=== PATIENT | male | born 1930 | race Caucasian/White ===

== ENCOUNTER 2017-06-14 12:50 | Emergency (ER) | payer MEDICARE, OTHER ==
--- NOTE | 2017-06-15 01:02 | ER ---
Date of Service: 06/14/2017 SUBJECTIVE: Andi presents to the emergency room with complaints of headache. The patient is a resident at [facility] and the patient states that the headache started approximately half hour before coming to the ER. The patient did take some Tylenol and by the time he had arrived to the emergency room, his pain had decreased significantly. The patient does have a history of subdural hematoma secondary to a fall. He states that he has not fallen or struck his head today. On arrival to the patient's room, the patient stated that he did not wish to be evaluated and wanted to go home stating that he had already called for the senior bus to come and get him. PAST MEDICAL HISTORY: 1. Subdural hematoma. 2. CHF. 3. COPD. 4. Parkinson disease. 5. Hypertension. 6. Anxiety. 7. Chronic kidney disease. ALLERGIES: 1. Hydrocodone. 2. Levodopa. 3. Selegiline. 4. YOSEF inhibitors. 5. Carbidopa. 6. Oxycodone. 7. Mirapex. MEDICATIONS: 1. Keppra. 2. Flomax. 3. Zocor. 4. Senna/docusate. 5. Omeprazole. 6. Synthroid. 7. Imdur. 8. Gabapentin. 9. Flonase. 10.Proscar. 11.Iron supplement. 12.Colace. 13.Lotrimin AF. 14.Dulcolax. 15.Diprolene. 16.Tylenol. REVIEW OF SYSTEMS: Denies any fever or chills. HEENT: No sore throat, rhinorrhea, congestion. Again, he does complain of resolving headache. Respiratory: No shortness of breath. Cardiac: Denies any substernal chest pain. No jaw, arm, neck, or back pain. GI: No nausea, vomiting, or diarrhea. No melena, hematochezia, or hematemesis. : Denies any dysuria. Musculoskeletal: No myalgias or arthralgias. Neurologic: No fainting, blackouts, or lightheadedness. Denies any numbness or tingling in his extremities. No difficulties with speech or ambulation. He is not experiencing any more weakness than he normally does. PHYSICAL EXAMINATION: General: This is an 86-year-old male patient, in no acute distress. Vital Signs: Blood pressure is 143/63, heart rate is 69, temperature is 36.1, respiratory rate 16. Skin: Warm, pink, and dry. Eyes: PERRLA. Extraocular movements are intact. Mouth, oral mucosa is moist. Lungs: Clear to auscultation. Heart: Regular rate and rhythm. Abdomen: Soft and nontender. There is no hepatosplenomegaly or masses noted. Extremities: Without edema. Neurologic: Cranial nerves II through XII are intact. His speech is fluent. He has 4/5 strength in his upper extremities and 3/5 strength in his lower extremities. Again, he does walk with a walker, so this is normal for him due to his Parkinson disease. Remainder of his physical examination is unremarkable. ASSESSMENT: Resolving headache. PLAN: The patient was discharged. He was reassured and I did advise him to return to the emergency room if the headache redevelops. If he develops any difficulties with speech or worsening difficulties with ambulation, nausea, vomiting, confusion, or other worrisome signs or symptoms. All questions were answered. ALEXISK: 06/15/2017 00:02:37 MODL: 06/15/2017 00:44:10 /[id number]
== END 2017-06-14 13:40 | disposition home or self-care (01) ==
LOC: VM.ED 12:50
CPT/HCPCS: 99282-GF; 99283

== ENCOUNTER 2018-05-04 02:40 | Observation (INO) | payer MEDICARE, OTHER ==
[2018-05-04] MEDS ORDERED: Acetaminophen 500 MG Tab PO ONE (03:48)
[2018-05-04 04:04] LABS: CHLORIDE,CL 107 mmol/L (98-107); SODIUM,NA 142 mmol/L (136-145)
--- NOTE | 2018-05-04 04:59 | EDM.PDOC ---
ED HPI GENERAL MEDICAL PROBLEM - General Chief Complaint: General Stated Complaint: Fall Time Seen by Provider: 05/04/18 03:02 Source of Information: Reports: Patient, Family History Limitations: Reports: No Limitations - History of Present Illness INITIAL COMMENTS - FREE TEXT/NARRATIVE: Patient is brought in by his daughter after he fell using the urinal by his bed this AM. 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 Daughter states his balance and strength are similar tonight to his baseline. He did strike his head and has large skin tears to the right forearm. He denies LOC, headache. He does indicate right sided chest pain. He did have rib fractures from 1-2 months ago as a result of a different falling episode. He has no urinary or bowel complaints. Denies abdominal pain. Onset: Today, Sudden Duration: Intermittent Location: Reports: Head, Chest Severity: Mild - Related Data Allergies Allergy/AdvReac Type Severity Reaction Status Date / Time hydrocodone Allergy Nausea and Verified 05/04/18 03:18 Vomiting levodopa [From Sinemet] Allergy Hallucinati Verified 05/04/18 03:18 ons selegiline [From Eldepryl] Allergy Cannot Verified 05/04/18 03:18 Remember YOSEF Inhibitors AdvReac Cough Verified 05/04/18 03:18 carbidopa [From Sinemet] AdvReac Hallucinati Verified 05/04/18 03:18 ons oxycodone AdvReac Nausea and Verified 05/04/18 03:18 Vomiting pramipexole di-HCl AdvReac Hallucinati Verified 05/04/18 03:18 [From Mirapex] ons Home Meds: Home Meds Acetaminophen [Tylenol Extra Strength] 1,000 mg PO TID 04/26/15 [History] Betamethasone/Propylene Glyc [Diprolene AF 0.05%] 1 applic TOP DAILY PRN [History] Ferrous Sulfate [Iron Supplement] 325 mg PO DAILY 04/26/15 [History] Finasteride [Proscar] 5 mg PO DAILY 04/26/15 [History] Fluorouracil [Efudex 5% Cream] 1 applic TOP ASDIRECTED PRN 04/26/15 [History] Gabapentin [Neurontin] 300 mg PO DAILY 04/26/15 [History] Isosorbide Mononitrate [Imdur] 60 mg PO DAILY 04/26/15 [History] Levothyroxine Sodium [Synthroid] 56 mcg PO DAILY 04/26/15 [History] Sennosides/Docusate Sodium [Senna-S Tablet] 1 each PO BID 04/26/15 [History] Simvastatin [Zocor] 10 mg PO DAILY 04/26/15 [History] Triamcinolone Acetonide [Triamcinolone Acetonide 0.1% Crm] 15 gm TOP BID PRN 07/03 [History] Bisacodyl [Dulcolax] 10 mg RECTAL DAILY PRN 08/25/15 [History] Clotrimazole [Lotrimin AF 1% Crm] 1 applic TOP BID PRN 08/25/15 [History] Docusate Sodium [Colace] 100 mg PO BID 08/25/15 [History] Fluticasone Propionate [Flonase] 1 spray NASBOTH DAILY 08/25/15 [History] Omeprazole 20 mg PO BIDAC 08/25/15 [History] Sodium Chloride [Saline Nasal [place]] 2 spray NASBOTH Q2H PRN 08/25/15 [History] Tamsulosin [Flomax] 0.4 mg PO BEDTIME 08/25/15 [History] levETIRAcetam [Levetiracetam] 750 mg PO BID 08/25/15 [History] Past Medical History Cardiovascular History: Reports: Pacemaker Neurological History: Reports: Brain Injury, Other (See Below) Other Neuro History: blood clot removed from head s/p fall Other Dermatologic History: 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 ED ROS GENERAL - Review of Systems Review Of Systems: See Below Constitutional: Reports: No Symptoms HEENT: Reports: No Symptoms Respiratory: Reports: No Symptoms Cardiovascular: Reports: Chest Pain Endocrine: Reports: No Symptoms GI/Abdominal: Reports: No Symptoms : Reports: No Symptoms Musculoskeletal: Reports: Other (chest pain right side) Skin: Reports: Wound (right forearm, posterior occiput) Neurological: Reports: Pre-Existing Deficit, Trouble Speaking Psychiatric: Reports: No Symptoms Hematologic/Lymphatic: Reports: No Symptoms Immunologic: Reports: No Symptoms ED EXAM, GENERAL - Physical Exam Exam: See Below Free Text/Narrative:: PLEASE USE ER NOTE FOR ADMISSION H AND P Exam Limited By: No Limitations General Appearance: Alert, WD/WN, No Apparent Distress Eye Exam: Bilateral Eye: EOMI, PERRL Ears: Normal TMs, Hearing Loss Ear Exam: Bilateral Ear: TM normal Throat/Mouth: Normal Inspection, Normal Lips, Normal Teeth, Normal Gums, Normal Oropharynx, Normal Voice, No Airway Compromise Head: Normocephalic, Other Neck: Normal Inspection Respiratory/Chest: No Respiratory Distress, Lungs Clear, Normal Breath Sounds, No Accessory Muscle Use, Chest Non-Tender Cardiovascular: Normal Peripheral Pulses, Regular Rate, Rhythm, No Edema, No Gallop, No JVD, No Murmur, No Rub Peripheral Pulses: 2+: Posterior Tibial (L), Posterior Tibial (R), Dorsalis Pedis (L), Dorsalis Pedis (R) GI/Abdominal: Normal Bowel Sounds, Soft, Non-Tender, No Organomegaly, No Distention, No Abnormal Bruit, No Mass Extremities: Normal Inspection, Normal Range of Motion, Non-Tender, Normal Capillary Refill, No Pedal Edema Neurological: Alert, Oriented, CN II-XII Intact, Normal Cognition, Normal Gait, Normal Reflexes, No Motor/Sensory Deficits, Slow to Respond, Memory Loss Recent Events Psychiatric: Normal Affect, Normal Mood Skin Exam: Warm, Dry, Intact, Normal Color, No Rash Lymphatic: No Adenopathy Course - Radiology Interpretation Free Text/Narrative:: negative chest, negative head ct Departure - Departure Time of Disposition: 06:00 Disposition: Refer to Observation Condition: Fair Clinical Impression: Skin tear of forearm without complication, Laceration of head, Chest pain - Discharge Information Instructions: Laceration Care, Adult, Stitches, [place], or Adhesive Wound Closure, [id number] Referrals: Samantha Bolden MD [Primary Care Provider] - Additional Instructions: Follow up with your primary doctor next week for additional symptom management. Keep dressing on arm for at least the next 48 hours and keep clean and dry. May apply bacitracin ointment as needed. Certainly return to the emergency room if you have any additional problems over the weekend. If you notice any abnormal neurologic symptoms call or return to the ER. Please call if you have any questions or concerns. - Problem List & Annotations (1) Laceration of head SNOMED Code(s): 916618639 Code(s): S01.91XA - LACERATION W/O FOREIGN BODY OF UNSP PART OF HEAD, INIT Status: Acute Priority: Medium Current Visit: Yes Qualifiers: Encounter type: initial encounter Location of open wound of head: unspecified part of head Foreign body presence: without foreign body Qualified Code(s): S01.91XA - Laceration without foreign body of unspecified part of head, initial encounter (2) Skin tear of forearm without complication SNOMED Code(s): 159513688 Code(s): S51.819A - LACERATION WITHOUT FOREIGN BODY OF UNSP FOREARM, INIT ENCNTR Status: Acute Priority: Low Current Visit: Yes Qualifiers: Encounter type: initial encounter Laterality: right Qualified Code(s): S51.811A - Laceration without foreign body of right forearm, initial encounter - Problem List Review Problem List Initiated/Reviewed/Updated: Yes - Assessment/Plan Assessment:: occipital head lac right forearm skin tears Plan: Follow up with your primary doctor next week for additional symptom management. Keep dressing on arm for at least the next 48 hours and keep clean and dry. May apply bacitracin ointment as needed. Certainly return to the emergency room if you have any additional problems over the weekend. If you notice any abnormal neurologic symptoms call or return to the ER. Please call if you have any questions or concerns. PLAN Admit to observation Chest Pain - IV pain medications as needed for pain control, use incentive spirometry, ambulation as tolerated Skin tear - apply bacitracin as needed, cover with dressing Head laceration - maura placed, continue observation for any neurologic changes Discharge Sunday
[2018-05-04] MEDS ORDERED: Ketorolac 30 MG/ML SDV IM ONE (05:00)
[2018-05-04] MEDS ORDERED: Sodium Chloride 0.9% 10 ML Syringe FLUSH PRN (05:26)
[2018-05-04] MEDS ORDERED: Ondansetron 4 MG Tab.DIS PO PRN (05:59)
[2018-05-04] MEDS ORDERED: Acetaminophen 325 MG Tab PO PRN (05:59)
[2018-05-04] MEDS ORDERED: Gabapentin 300 MG Cap PO SCH (10:07)
[2018-05-04] MEDS ORDERED: Ibuprofen 200 MG Tab PO PRN (11:00)
[2018-05-04] MEDS: Isosorbide Mononitrate 30 MG Tab.ER PO SCH (11:05)
[2018-05-04] MEDS: Levothyroxine 112 MCG Tab PO SCH (11:05)
[2018-05-04] MEDS: Finasteride 5 MG Tab**OWN MED PO SCH (11:06)
[2018-05-04] MEDS: levETIRAcetam 500 MG Tab**OWN MED PO SCH ×2 (11:06→20:19)
[2018-05-04] MEDS: ESCITALOPRAM 20 MG PO SCH (16:54)
[2018-05-04] MEDS: Acetaminophen 500 MG Tab PO PRN (18:00)
[2018-05-04] MEDS: Omeprazole 20 MG Cap.CR PO SCH (18:01)
[2018-05-04] MEDS ORDERED: DOXAZOSIN 2 MG PO SCH (20:00)
[2018-05-04] MEDS ORDERED: Simvastatin 20 MG Tab**OWN MED PO SCH (20:00)
[2018-05-05 05:45] VITALS: BP 163/83
[2018-05-05] MEDS: Levothyroxine 112 MCG Tab PO SCH (06:16)
[2018-05-05] MEDS: Omeprazole 20 MG Cap.CR PO SCH (06:16)
[2018-05-05] MEDS: Acetaminophen 500 MG Tab PO PRN (06:20)
[2018-05-05] MEDS: Isosorbide Mononitrate 30 MG Tab.ER PO SCH (07:51)
[2018-05-05] MEDS: Finasteride 5 MG Tab**OWN MED PO SCH (07:52)
[2018-05-05] MEDS: ESCITALOPRAM 20 MG PO SCH (07:52)
[2018-05-05] MEDS: levETIRAcetam 500 MG Tab**OWN MED PO SCH (07:53)
[2018-05-05] MEDS ORDERED: GABAPENTIN 600 MG PO SCH (08:00)
--- NOTE | 2018-05-07 14:56 | PCM.DCSUM1 ---
Discharge Summary - Hospital Course HPI Initial Comments: Pt. was admitted observation following a fall. Pt. sustained a laceration to the occipital portion of his head and a skin tear to his R forearm after the fall. He was complaining of a headache and subsequently was admitted by TALIA Cade. He had no change in his neuro status and was able to ambulate, but continued to be unsteady on his feet and at risk for falling. He requires the assist of one with ambulation with a seated walker. Pt. did not require further inpatient care, but will be set up with PT/OT from home health due to his risk of falling and home health to monitor and change the dressing on the skin tear on his forearm and to monitor the stapled laceration to the back of his head. He requires assistance for his ADLs. - Discharge Data Discharge Date: 05/05/18 Discharge Disposition: Home, W Home Health Agency 06 Condition: Fair - Discharge Diagnosis/Problem(s) (1) Skin tear of forearm without complication SNOMED Code(s): 501726700 ICD Code: S51.819A - LACERATION WITHOUT FOREIGN BODY OF UNSP FOREARM, INIT ENCNTR Status: Acute Priority: Low Qualifiers: Encounter type: initial encounter Laterality: right Qualified Code(s): S51.811A - Laceration without foreign body of right forearm, initial encounter - Patient Instructions Showering/Bathing: May Shower - Discharge Plan Home Medications: Home Meds Acetaminophen [Tylenol Extra Strength] 1,000 mg PO TID PRN 04/26/15 [History] Finasteride [Proscar] 5 mg PO DAILY 04/26/15 [History] Gabapentin [Neurontin] 300 mg PO DAILY 04/26/15 [History] Isosorbide Mononitrate [Imdur] 30 mg PO DAILY 04/26/15 [History] Levothyroxine Sodium [Synthroid] 112 mcg PO DAILY 04/26/15 [History] Sennosides/Docusate Sodium [Senna-S Tablet] 1 each PO BID 04/26/15 [History] Simvastatin [Zocor] 10 mg PO DAILY 04/26/15 [History] Fluticasone Propionate [Flonase] 1 spray NASBOTH BID 08/25/15 [History] Omeprazole 20 mg PO BIDAC 08/25/15 [History] levETIRAcetam [Levetiracetam] 250 mg PO BID 08/25/15 [History] Cholecalciferol (Vitamin D3) [Vitamin D3] 2,000 units PO DAILY 05/04/18 [History ] Doxazosin [Cardura] 1 mg PO BEDTIME 05/04/18 [History] Escitalopram [Lexapro] 10 mg PO DAILY 05/04/18 [History] Magnesium Hydroxide [Milk of Magnesia] 30 ml PO DAILY PRN 05/04/18 [History] Patient Handouts: Laceration Care, Adult, Heart Failure, [id number], Stitches , [place], or Adhesive Wound Closure, [id number] Forms: ED Department Discharge Referrals: Samantha Bolden MD [Primary Care Provider] - - General Info Date of Service: 05/05/18 Functional Status: Reports: Pain Controlled - Review of Systems General: Reports: Weakness, Fatigue HEENT: Reports: Other (occipital scalp laceration). Denies: Headaches ( Headache has resolved) Pulmonary: Reports: No Symptoms Cardiovascular: Reports: No Symptoms Gastrointestinal: Reports: No Symptoms Genitourinary: Reports: No Symptoms Musculoskeletal: Reports: No Symptoms Skin: Reports: No Symptoms Neurological: Reports: Difficulty Walking, Gait Disturbance (acture on chronic issues with ambulation). Denies: Confusion, Dizziness, Headache, Numbness, Paresthesia, Pre-Existing Deficit, Trouble Speaking Psychiatric: Reports: No Symptoms - Patient Data Vitals - Most Recent: Last Vital Signs Temp 36.5 C 05/05/18 05:44 Pulse 68 05/05/18 05:44 Resp 18 05/05/18 05:44 BP 163/83 H 05/05/18 05:44 Pulse Ox 93 L 05/05/18 05:44 Weight - Most Recent: 86.664 kg Med Orders - Current: Current Medications Discontinued Medications Acetaminophen (Tylenol Extra Strength) 1,000 mg PO ONETIME ONE Stop: 05/04/18 03:49 Last Admin: 05/04/18 05:13 Dose: 1,000 mg Acetaminophen (Tylenol) 650 mg PO Q4H PRN PRN Reason: Pain (Mild 1-3)/fever Acetaminophen (Tylenol Extra Strength) 1,000 mg PO TID PRN PRN Reason: Pain (mild 1-3) Last Admin: 05/05/18 06:20 Dose: 1,000 mg Finasteride (Proscar) 5 mg PO DAILY [facility] Last Admin: 05/05/18 07:52 Dose: 5 mg Gabapentin (Neurontin) 300 mg PO DAILY [facility] Last Admin: 05/04/18 11:06 Dose: 300 mg Ibuprofen (Motrin) 800 mg PO Q6H PRN PRN Reason: Pain (mild 1-3) Isosorbide Mononitrate (Imdur) 30 mg PO DAILY [facility] Last Admin: 05/05/18 07:51 Dose: 30 mg Ketorolac Tromethamine (Toradol) 30 mg IM ONETIME ONE Stop: 05/04/18 05:01 Last Admin: 05/04/18 05:12 Dose: 30 mg Levetiracetam (Keppra) 250 mg PO BID [facility] Last Admin: 05/05/18 07:53 Dose: 250 mg Levothyroxine Sodium (Levothyroxine) 112 mcg PO ACBREAKFAST [facility] Last Admin: 05/05/18 06:16 Dose: 112 mcg Doxazosin 2mg Own (Med) 0 each PO BEDTIME [facility] Last Admin: 05/04/18 20:20 Dose: 1 each Escitalopram [ Lexapro] 20 MgOwn Med 10 mg PO DAILY [facility] Last Admin: 05/05/18 07:52 Dose: 10 mg Gabapentin 600mg Tab (Own Med) 0.5 each PO DAILY [facility] Last Admin: 05/05/18 07:52 Dose: 0.5 each Omeprazole (Omeprazole) 20 mg PO BIDAC [facility] Last Admin: 05/05/18 06:16 Dose: 20 mg Ondansetron HCl (Zofran Odt) 4 mg PO Q6H PRN PRN Reason: nausea, able to take PO Senna/Docusate Sodium (Senna Plus) 1 tab PO BID [facility] Last Admin: 05/05/18 07:51 Dose: 1 tab Simvastatin (Zocor) 10 mg PO BEDTIME [facility] Last Admin: 05/04/18 20:18 Dose: 10 mg Sodium Chloride (Saline Flush) 10 ml FLUSH ASDIRECTED PRN PRN Reason: Keep Vein Open - Exam Quality Assessment: Reports: Supplemental Oxygen General: Reports: Alert, Oriented HEENT: Reports: Pupils Equal, Pupils Reactive, EOMI, Mucous Membr. Moist/[place] Neck: Reports: Supple Lungs: Reports: Clear to Auscultation, Normal Respiratory Effort Cardiovascular: Reports: Regular Rate, Regular Rhythm GI/Abdominal Exam: Normal Bowel Sounds, Soft, Non-Tender, No Organomegaly, No Distention, No Abnormal Bruit, No Mass, Pelvis Stable (Male) Exam: Deferred Rectal (Males) Exam: Deferred Back Exam: Reports: Normal Inspection, Full Range of Motion Extremities: Normal Range of Motion, Normal Capillary Refill, Other (skin tear noted to L forearm) Wound/Incisions: Reports: Healing Well, Dressing Dry and Intact, No Drainage, Other (skin tear R forearm, laceration to occipital scalp with maura) Neurological: Reports: No New Focal Deficit Psy/Mental Status: Reports: Alert, Normal Affect, Normal Mood *Q Meaningful Use (DIS) - VTE *Q VTE Anticoagulation Contraindications: Med Allergy/Intol/Interac
== END 2018-05-05 10:10 | disposition home health service (06) ==
LOC: VM.ED 02:40 → VM.MS 05:24 → UNDOADMOB 05:37 → VM.MS 05:37
PROVIDERS: ADMIT Nurse Practitioner Family; ATTEND Nurse Practitioner Family
DX: S01.81XA Laceration without foreign body of other part of head, initial encounter (principal); S51.811A Laceration without foreign body of right forearm, initial encounter; R07.9 Chest pain, unspecified; G20 Parkinson's disease; W19.XXXA Unspecified fall, initial encounter; Z79.899 Other long term (current) drug therapy; Z95.0 Presence of cardiac pacemaker; Z88.5 Allergy status to narcotic agent; Z88.8 Allergy status to other drugs, medicaments and biological substances
CPT/HCPCS: 36415; 70450; 71045; 80053; 81001; 85025; 85610; 96372; 99285; A9270-GY; G0378; J1885

== ENCOUNTER 2018-12-15 11:36 | Inpatient (IN) | payer MEDICARE, OTHER ==
[2018-12-15] MEDS ORDERED: Sodium Chloride 0.9% 10 ML Syringe FLUSH PRN (11:55)
[2018-12-15] MEDS ORDERED: Sodium Chloride 0.9% 1,000 ML IV ONE (12:01)
[2018-12-15 12:53] LABS: CHLORIDE,CL 103 mmol/L (98-107); SODIUM,NA 136 mmol/L (136-145)
[2018-12-15 12:54] LABS: ANION GAP 12.1 mmol/L (10-20)
--- NOTE | 2018-12-15 13:20 | EDM.PDOC ---
ED HPI GENERAL MEDICAL PROBLEM - General Chief Complaint: General Stated Complaint: WEAKNESS Time Seen by Provider: 12/15/18 11:37 Source of Information: Reports: Patient, Family, Old Records, RN, RN Notes Reviewed History Limitations: Reports: No Limitations - History of Present Illness INITIAL COMMENTS - FREE TEXT/NARRATIVE: Patient is brought to the emergency room at [facility] for evaluation of weakness. The patient is a resident of [facility]. The patient states that he feels very tired and fatigued. The patient was hospitalized about a month ago for pneumonia. The patient states that he's felt some chills. Assisted living staff state the patient had a temp of 99.4. The patient denies any chest pain. The patient has some abdominal discomfort. The patient states to me that he feels a little short of breath. The patient is had a junky cough. The patient has a chronic indwelling Mederos catheter for stage IV prostate cancer. The patient is had no hematuria in his urine output. No focal neurological deficits. Oxygen saturations have been lower 90's. Otherwise no other concerns Onset: Gradual - Related Data Allergies Allergy/AdvReac Type Severity Reaction Status Date / Time selegiline [From Eldepryl] Allergy Cannot Verified 12/15/18 12:23 Remember YOSEF Inhibitors AdvReac Cough Verified 12/15/18 12:23 carbidopa [From Sinemet] AdvReac Hallucinati Verified 12/15/18 12:23 ons hydrocodone AdvReac Nausea and Verified 12/15/18 12:23 Vomiting levodopa [From Sinemet] AdvReac Hallucinati Verified 12/15/18 12:23 ons oxycodone AdvReac Nausea and Verified 12/15/18 12:23 Vomiting pramipexole di-HCl AdvReac Hallucinati Verified 12/15/18 12:23 [From Mirapex] ons Home Meds: Home Meds Acetaminophen [Tylenol Extra Strength] 1,000 mg PO TID PRN 04/26/15 [History] Finasteride [Proscar] 5 mg PO BEDTIME 04/26/15 [History] Gabapentin [Neurontin] 300 mg PO BID 04/26/15 [History] Isosorbide Mononitrate [Imdur] 30 mg PO DAILY 04/26/15 [History] Levothyroxine Sodium [Synthroid] 56 mcg PO DAILY 04/26/15 [History] Simvastatin [Zocor] 10 mg PO BEDTIME 04/26/15 [History] Fluticasone Propionate [Flonase] 1 spray NASBOTH BID 08/25/15 [History] Omeprazole 20 mg PO BIDAC 08/25/15 [History] Cholecalciferol (Vitamin D3) [Vitamin D3] 2,000 units PO DAILY 05/04/18 [History ] Escitalopram [Lexapro] 10 mg PO BEDTIME 05/04/18 [History] Magnesium Hydroxide [Milk of Magnesia] 30 ml PO DAILY PRN 05/04/18 [History] Acetaminophen [Tylenol] 650 mg PO QID PRN 11/07/18 [History] Albuterol/Ipratropium [Combivent Respimat] 1 puff IH QID 11/07/18 [History] Bicalutamide [Casodex] 50 mg PO DAILY 11/07/18 [History] levETIRAcetam [Levetiracetam] 250 mg PO BID 11/13/18 [History] Ferrous Sulfate 325 mg PO WITHBREAKFAST #30 tablet 11/17/18 [Rx] Docusate Sodium 100 mg PO BID 12/15/18 [History] Magnesium Oxide 400 mg PO BID 12/15/18 [History] Past Medical History HEENT History: Reports: Allergic Rhinitis Cardiovascular History: Reports: Afib, CAD, Heart Failure, Hypertension, AL, Pacemaker Gastrointestinal History: Reports: Chronic Constipation Genitourinary History: Reports: Renal Disease Neurological History: Reports: Brain Injury, Parkinson's, Other (See Below) Other Neuro History: blood clot removed from head s/p fall Endocrine/Metabolic History: Reports: Hypothyroidism, Vitamin D Deficiency Oncologic (Cancer) History: Reports: Prostate Other Dermatologic History: 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 - Past Surgical History Cardiovascular Surgical History: Reports: Pacer Social & Family History - Tobacco Use Smoking Status *Q: Unknown Ever Smoked - Caffeine Use Caffeine Use: Reports: Coffee ED ROS GENERAL - Review of Systems Review Of Systems: See Below Constitutional: Reports: Fever, Chills, Weakness, Fatigue, Decreased Appetite Respiratory: Reports: Shortness of Breath, Cough, Sputum Cardiovascular: Denies: Chest Pain, Palpitations GI/Abdominal: Reports: Abdominal Pain. Denies: Nausea, Vomiting Skin: Reports: No Symptoms Neurological: Reports: No Symptoms ED EXAM, GENERAL - Physical Exam Exam: See Below Exam Limited By: No Limitations General Appearance: Alert, No Apparent Distress, Lethargic Respiratory/Chest: No Respiratory Distress, Decreased Breath Sounds, Rales, Rhonchi, Wheezing Cardiovascular: Regular Rate, Rhythm Peripheral Pulses: 2+: Radial (L), Radial (R) GI/Abdominal: Soft, Non-Tender, Abnormal Bowel Sounds (Hypoactive) Extremities: Normal Inspection Neurological: Alert, Oriented, Slow to Respond Skin Exam: Warm, Dry, Intact, Normal Color Course - Vital Signs Last Recorded V/S: Last Vital Signs Temp 37.2 C 12/15/18 12:48 Pulse 70 12/15/18 12:48 Resp 16 12/15/18 12:48 BP 125/56 L 12/15/18 12:48 Pulse Ox 93 L 12/15/18 12:48 - Orders/Labs/Meds Orders: Active Orders 24 hr Category Date Time Status Admission Status [Patient Status] [ADT] Routine ADT 12/15/18 13:36 Ordered Chest Abdomen Pelvis wo Cont [CT] Stat Exams 12/15/18 11:59 Taken CULTURE BLOOD [BC] Stat Lab 12/15/18 12:21 Received CULTURE BLOOD [BC] Stat Lab 12/15/18 12:27 Received Sodium Chloride 0.9% [Normal Saline] 1,000 ml Med 12/15/18 12:01 Active IV ONETIME Sodium Chloride 0.9% [Saline Flush] Med 12/15/18 11:55 Active 10 ml FLUSH ASDIRECTED PRN Blood Culture x2 Reflex Set [OM.PC] Stat Oth 12/15/18 11:54 Ordered Peripheral IV Insertion Adult [OM.PC] Routine Oth 12/15/18 11:55 Ordered Medication Orders Sodium Chloride (Normal Saline) 1,000 mls @ 30 mls/hr IV ONETIME ONE Stop: 12/16/18 21:20 Last Admin: 12/15/18 11:45 Dose: 30 mls/hr Sodium Chloride (Saline Flush) 10 ml FLUSH ASDIRECTED PRN PRN Reason: Keep Vein Open Labs: Laboratory Tests 12/15/18 12/15/18 12/15/18 Range/Units 12:21 12:21 12:21 WBC 12.3 H (4.0-10.0) x10^3/uL RBC 2.62 L (4.5-6.0) x10^6/uL Hgb 8.3 L (14.0-18.0) g/dL Hct 26.1 L (40.0-52.0) % MCV 99.6 H (78.0-93.0) fL MCH 31.7 (26.0-32.0) pg MCHC 31.8 L (32.0-36.0) g/dL RDW Coeff of Erna 14.5 (10.0-15.0) % Plt Count 213 (130-400) x10^3/uL Neut % (Auto) 77.3 (50.0-80.0) % Lymph % (Auto) 12.6 L (25.0-50.0) % Henderson % (Auto) 9.7 (2.0-11.0) % Eos % (Auto) 0.2 (0.0-4.0) % Baso % (Auto) 0.2 (0.2-1.2) % Sodium 136 (136-145) mmol/L Potassium 4.1 (3.5-5.1) mmol/L Chloride 103 (98-107) mmol/L Carbon Dioxide 25 (21-32) mmol/L Anion Gap 12.1 (10-20) mmol/L BUN 21 H (7-18) mg/dL Creatinine 2.3 H (0.70-1.30) mg/dL Est Cr Clr Drug Dosing TNP Estimated GFR (MDRD) 27 Glucose 117 H (74-106) mg/dL Lactic Acid 0.8 (0.4-2.0) mmol/L Calcium 9.5 (8.5-10.1) mg/dL Corrected Calcium 10.46 H (8.5-10.1) mg/dL Total Bilirubin 0.7 (0.2-1.0) mg/dL AST 16 (15-37) U/L ALT 15 L (16-63) U/L Alkaline Phosphatase 56 (46-116) U/L C-Reactive Protein 7.2 H (<=0.9) mg/dL Total Protein 6.3 L (6.4-8.2) g/dL Albumin 2.8 L (3.4-5.0) g/dL Globulin 3.5 Albumin/Globulin Ratio 0.80 Urine Color (YELLOW) Urine Appearance (CLEAR) Urine pH (5.0-8.0) Ur Specific Ulysses Urine Protein (NEGATIVE) mg/dL Urine Glucose (UA) (NEGATIVE) mg/dL Urine Ketones (NEGATIVE) mg/dL Urine Occult Blood (NEGATIVE) Urine Nitrite (NEGATIVE) Urine Bilirubin (NEGATIVE) Urine Urobilinogen (0.2) EU/dL Ur Leukocyte Esterase (NEGATIVE) Urine RBC (NOT SEEN) /HPF Urine WBC (NOT SEEN) /HPF Ur Squamous Epith Cells (NEGATIVE) /HPF Urine Bacteria (NEGATIVE) /HPF Urine Mucus (NEGATIVE) /LPF 12/15/18 Range/Units 12:45 WBC (4.0-10.0) x10^3/uL RBC (4.5-6.0) x10^6/uL Hgb (14.0-18.0) g/dL Hct (40.0-52.0) % MCV (78.0-93.0) fL MCH (26.0-32.0) pg MCHC (32.0-36.0) g/dL RDW Coeff of Erna (10.0-15.0) % Plt Count (130-400) x10^3/uL Neut % (Auto) (50.0-80.0) % Lymph % (Auto) (25.0-50.0) % Henderson % (Auto) (2.0-11.0) % Eos % (Auto) (0.0-4.0) % Baso % (Auto) (0.2-1.2) % Sodium (136-145) mmol/L Potassium (3.5-5.1) mmol/L Chloride (98-107) mmol/L Carbon Dioxide (21-32) mmol/L Anion Gap (10-20) mmol/L BUN (7-18) mg/dL Creatinine (0.70-1.30) mg/dL Est Cr Clr Drug Dosing Estimated GFR (MDRD) Glucose (74-106) mg/dL Lactic Acid (0.4-2.0) mmol/L Calcium (8.5-10.1) mg/dL Corrected Calcium (8.5-10.1) mg/dL Total Bilirubin (0.2-1.0) mg/dL AST (15-37) U/L ALT (16-63) U/L Alkaline Phosphatase (46-116) U/L C-Reactive Protein (<=0.9) mg/dL Total Protein (6.4-8.2) g/dL Albumin (3.4-5.0) g/dL Globulin Albumin/Globulin Ratio Urine Color Red H (YELLOW) Urine Appearance Turbid H (CLEAR) Urine pH 6.5 (5.0-8.0) Ur Specific Ulysses 1.015 Urine Protein >=300 H (NEGATIVE) mg/dL Urine Glucose (UA) Negative (NEGATIVE) mg/dL Urine Ketones 15 H (NEGATIVE) mg/dL Urine Occult Blood Large H (NEGATIVE) Urine Nitrite Positive H (NEGATIVE) Urine Bilirubin Large H (NEGATIVE) Urine Urobilinogen 1.0 (0.2) EU/dL Ur Leukocyte Esterase Large H (NEGATIVE) Urine RBC Packed (NOT SEEN) /HPF Urine WBC 10-20 H (NOT SEEN) /HPF Ur Squamous Epith Cells Not seen (NEGATIVE) /HPF Urine Bacteria Not seen (NEGATIVE) /HPF Urine Mucus Not seen (NEGATIVE) /LPF Meds: Medications Generic Name Dose Route Start Last Admin Trade Name Freq PRN Reason Stop Dose Admin Sodium Chloride 1,000 mls @ 30 mls/hr 12/15/18 12:01 12/15/18 11:45 Normal Saline IV 12/16/18 21:20 30 mls/hr ONETIME ONE Administration Sodium Chloride 10 ml 12/15/18 11:55 Saline Flush FLUSH ASDIRECTED PRN Keep Vein Open Discontinued Medications Generic Name Dose Route Start Last Admin Trade Name Freq PRN Reason Stop Dose Admin Ceftriaxone Sodium 1 gm 12/15/18 13:25 Rocephin IVPUSH 12/15/18 13:26 STAT ONE Departure - Departure Time of Disposition: 13:39 Disposition: Admitted As Inpatient 65 Condition: Fair Clinical Impression: Weakness Pneumonia Qualifiers: Pneumonia type: due to unspecified organism Laterality: left Lung location: lower lobe of lung Qualified Code(s): J18.1 - Lobar pneumonia, unspecified organism UTI (urinary tract infection) Qualifiers: Urinary tract infection type: acute cystitis Hematuria presence: with hematuria Qualified Code(s): N30.01 - Acute cystitis with hematuria [id number] kidney injury Qualifiers: Acute renal failure type: unspecified Chronic kidney disease stage: unspecified stage Qualified Code(s): N17.9 - Acute kidney failure, unspecified; N18.9 - Chronic kidney disease, unspecified - Discharge Information *PRESCRIPTION DRUG MONITORING PROGRAM REVIEWED*: Not Applicable *COPY OF PRESCRIPTION DRUG MONITORING REPORT IN PATIENT ROSAURA: Not Applicable - Problem List Review Problem List Initiated/Reviewed/Updated: Yes - My Orders Last 24 Hours: My Active Orders 12/15/18 11:54 Blood Culture x2 Reflex Set [OM.PC] Stat 12/15/18 11:55 Sodium Chloride 0.9% [Saline Flush] 10 ml FLUSH ASDIRECTED PRN Peripheral IV Insertion Adult [OM.PC] Routine 12/15/18 11:59 Chest Abdomen Pelvis wo Cont [CT] Stat 12/15/18 12:01 Sodium Chloride 0.9% [Normal Saline] 1,000 ml IV ONETIME 12/15/18 12:21 CULTURE BLOOD [BC] Stat 12/15/18 12:27 CULTURE BLOOD [BC] Stat 12/15/18 13:36 Admission Status [Patient Status] [ADT] Routine - Assessment/Plan Admission H&P: Please use this note as an admission H&P Last 24 Hours: My Active Orders 12/15/18 11:54 Blood Culture x2 Reflex Set [OM.PC] Stat 12/15/18 11:55 Sodium Chloride 0.9% [Saline Flush] 10 ml FLUSH ASDIRECTED PRN Peripheral IV Insertion Adult [OM.PC] Routine 12/15/18 11:59 Chest Abdomen Pelvis wo Cont [CT] Stat 12/15/18 12:01 Sodium Chloride 0.9% [Normal Saline] 1,000 ml IV ONETIME 12/15/18 12:21 CULTURE BLOOD [BC] Stat 12/15/18 12:27 CULTURE BLOOD [BC] Stat 12/15/18 13:36 Admission Status [Patient Status] [ADT] Routine Assessment:: LLL Pneumonia Acute Cystitis with hematuria Proctitis Acute on Chronic kidney injury Weakness Dehydration Plan: Patient will be admitted acute for IV abx therapy. Patient will need PT consult. [facility] for discharge planning. Anticipate admission 3-4 days with possible SB for therapy. Continue home medications the same. Will start with Levaquin for Pneumonia and UTI coverage.
[2018-12-15] MEDS ORDERED: cefTRIAXone 1 GM Vial IVPUSH ONE (13:25)
[2018-12-15] MEDS ORDERED: Levofloxacin/Dextrose 5%-Water 500 MG in Premix Bag 1 BAG IV SCH (15:00)
[2018-12-15] MEDS: Sodium Chloride 0.9% 1,000 ML IV SCH ×2 (15:30→20:45)
[2018-12-15] MEDS: Albuterol/Ipratropium 3.0-0.5 MG/3 ML Neb Soln NEB SCH ×3 (15:47→22:08)
[2018-12-15] MEDS: Levofloxacin/Dextrose 5%-Water 750 MG in Premix Bag 1 BAG IV SCH (15:48)
[2018-12-15] MEDS: levETIRAcetam 500 MG Tab PO SCH (19:53)
[2018-12-15] MEDS: Docusate Sodium 100 MG Cap PO SCH (19:53)
[2018-12-15] MEDS: Acetaminophen 325 MG Tab PO PRN (19:53)
[2018-12-15] MEDS: Gabapentin 300 MG Cap PO SCH (19:53)
[2018-12-15] MEDS: Finasteride 5 MG Tab PO SCH (19:53)
[2018-12-15] MEDS: Simvastatin 10 MG Tab PO SCH (19:53)
[2018-12-15] MEDS: Magnesium Oxide 400 MG Tab PO SCH (19:53)
[2018-12-15] MEDS: Citalopram 20 MG Tab PO SCH (19:53)
[2018-12-15] MEDS: Fluticasone Propionate Nasal Spray 16 GM Bottle NASBOTH SCH (19:56)
[2018-12-15] MEDS ORDERED: Albuterol/Ipratropium 4 GM Inhalation Spray INH SCH (20:00)
[2018-12-16] MEDS: Sodium Chloride 0.9% 1,000 ML IV SCH ×2 (02:52→17:27)
[2018-12-16] MEDS: Albuterol/Ipratropium 3.0-0.5 MG/3 ML Neb Soln NEB SCH ×6 (02:52→22:52)
[2018-12-16] MEDS: Acetaminophen 325 MG Tab PO PRN ×3 (06:29→23:40)
[2018-12-16] MEDS: Omeprazole 20 MG Cap.CR PO SCH ×2 (06:30→16:00)
[2018-12-16 07:18] LABS: ANION GAP 12.2 mmol/L (10-20)
[2018-12-16] MEDS: levETIRAcetam 500 MG Tab PO SCH ×2 (07:45→20:33)
[2018-12-16] MEDS: Levothyroxine 112 MCG Tab PO SCH (07:45)
[2018-12-16] MEDS: Ferrous Sulfate 325 MG Tab PO SCH (07:46)
[2018-12-16] MEDS: Fluticasone Propionate Nasal Spray 16 GM Bottle NASBOTH SCH ×2 (07:46→20:35)
[2018-12-16] MEDS: Docusate Sodium 100 MG Cap PO SCH ×2 (07:46→20:35)
[2018-12-16] MEDS: Magnesium Oxide 400 MG Tab PO SCH ×2 (07:46→20:34)
[2018-12-16] MEDS: Isosorbide Mononitrate 30 MG Tab.ER PO SCH (07:46)
[2018-12-16] MEDS: Cholecalciferol (Vitamin D3) 1,000 Unit Tab PO SCH (07:46)
[2018-12-16] MEDS: Gabapentin 300 MG Cap PO SCH ×2 (07:46→20:34)
--- NOTE | 2018-12-16 07:50 | CT ---
[id number] CT/CT Chest Abdomen Pelvis WO IV EXAM: CT Chest Abdomen Pelvis WO IV CLINICAL DATA: FEVER, PNEUMONIA, ABDOMINAL PAIN. COMPARISON STUDY: December 2017. FINDINGS: Findings are within limitation of no IV or enteric contrast. Or emphysematous parenchymal changes in the lungs with sequela of mild bronchitis. Scarring and/or subsegmental atelectasis in both lung bases left greater than right. Pneumonia is also possible on the left. Correlate for signs of infection. Calcified lung nodules and left hilar lymph nodes are consistent with sequela prior granulomatous disease. No mediastinal or hilar lymphadenopathy. No evidence of parenchymal consolidation, effusion, or pneumothorax. Cardiomegaly and central vascular congestion. Left chest wall cardiac conduction device in place. Coronary artery atherosclerosis. Thoracic aorta atherosclerosis. No aneurysm. Abdomen and pelvis: Numerous cysts of varying size and density throughout both kidneys. Largest are on the left measuring 81 and 75 mm in diameter. The cysts have not significantly changed in size or appearance compared to the prior examination. However, there is now hyperdense material within the left renal pelvis extending into the proximal ureter. No obstructing stone or mass is radiographically evident, despite increased perinephric fat stranding on the left. Urinary bladder is decompressed by Mederos catheter. Wall demonstrates irregular thickening. Correlate with urinalysis to exclude underlying changes of cystitis. Again seen is coarse calcification adjacent to the gallbladder fossa, similar to the prior examination. Liver is otherwise unremarkable. Gallbladder has been resected. Spleen, pancreas, and adrenal glands are unremarkable. 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 Numerous fluid-filled loops of colon and small bowel. No evidence of small bowel or colonic obstruction. There is thickening of the rectal wall with a mild amount of stranding in the mesorectum. Correlate for proctitis. Bones and soft tissues: Again seen are changes of sclerosis in the T4, T5, and T6 vertebral bodies. Findings were seen previously and are similar. Correlate for history of primary malignancy such as prostate cancer. No new osseous lesions. No evidence of osteomyelitis/discitis. IMPRESSION: Possible left lung base pneumonia not seen previously. Possible changes of proctitis, not seen previously. Abnormal hyperdense material in the left renal collecting system not seen previously. Consider urologic consultation, as finding is nonspecific on this noncontrast CT examination. Additionally, there is an abnormal urinary bladder with indwelling Mederos catheter. Correlate with urinalysis for cystitis. Other findings are described above. Raphael Osman MD 12/16/18 0748 Thank you for allowing us to participate in the care of your patient.
--- NOTE | 2018-12-16 09:01 | PN ---
Progress Note for ERAN RODRIGUEZ Date: 12/16/2018 Room #: VM.203 SUBJECTIVE: The patient is feeling quite weak. He is not coughing so much. He does have a catheter and that is draining blood. Daughter states that they have a plan for suprapubic catheter possibly later this week. However, if he is ill, that will not be able to be allowed. Otherwise, just did not have much energy. OBJECTIVE: Vital Signs: His weight is 82.1, which is not certain how compared to admission weight. It is down 4 kg to admission. Blood pressure is 145/60, pulse is 81, respirations are 20, sats are 93%. Skin: Pale. Heart: Regular rate. Lungs: Diminished breath sounds on bases. Bright red blood is coming per catheter. Extremities: Lower extremities, no edema. LABORATORY DATA: Lab today shows that his hemoglobin has dropped to 7.7 from 8.3, white blood cell count improved to 9.9, platelets are 175. Sodium is 135, potassium 4.1, creatinine has gone up to 2.5 from 2.3, GFR is 24 from 27, glucose is 104. IMPRESSION: 1. Systemic inflammatory response syndrome with pneumonia per CT as well as urinary tract infection. 2. Metastatic prostate cancer. 3. Profound weakness. 4. Mild cognitive dysfunction. 5. Chronic kidney disease stage 3. PLAN: We will continue IV hydration. Continue Levaquin. He will be seen by therapist today, with PT and OT. We will continue IV fluids. We will recheck lab work tomorrow. We will repeat chest x-ray tomorrow. GM12/16/2018 08:18:51 MODL: 12/16/2018 08:57:18 /[id number]
[2018-12-16] MEDS: Finasteride 5 MG Tab PO SCH (20:34)
[2018-12-16] MEDS: Simvastatin 10 MG Tab PO SCH (20:34)
[2018-12-16] MEDS: Citalopram 20 MG Tab PO SCH (20:34)
[2018-12-17] MEDS: Albuterol/Ipratropium 3.0-0.5 MG/3 ML Neb Soln NEB SCH ×6 (03:07→23:12)
[2018-12-17] MEDS: Sodium Chloride 0.9% 1,000 ML IV SCH (03:25)
[2018-12-17] MEDS: Omeprazole 20 MG Cap.CR PO SCH ×2 (06:34→17:01)
[2018-12-17] MEDS: Docusate Sodium 100 MG Cap PO SCH ×2 (08:32→20:01)
[2018-12-17] MEDS ORDERED: Furosemide 20 MG/2 ML VIAL IVPUSH ONE ×2 (08:32→15:00)
[2018-12-17] MEDS: levETIRAcetam 500 MG Tab PO SCH ×2 (08:32→20:01)
[2018-12-17] MEDS: Cholecalciferol (Vitamin D3) 1,000 Unit Tab PO SCH (08:33)
[2018-12-17] MEDS: Ferrous Sulfate 325 MG Tab PO SCH (08:33)
[2018-12-17] MEDS: Levothyroxine 112 MCG Tab PO SCH (08:33)
[2018-12-17] MEDS: Magnesium Oxide 400 MG Tab PO SCH ×2 (08:34→20:01)
[2018-12-17] MEDS: Gabapentin 300 MG Cap PO SCH ×2 (08:34→20:01)
[2018-12-17] MEDS: Isosorbide Mononitrate 30 MG Tab.ER PO SCH (08:36)
[2018-12-17] MEDS: Fluticasone Propionate Nasal Spray 16 GM Bottle NASBOTH SCH ×2 (08:38→20:00)
[2018-12-17] MEDS: Acetaminophen 325 MG Tab PO PRN ×2 (08:40→17:01)
--- NOTE | 2018-12-17 09:13 | CR ---
[id number] RAD/RAD Chest PA or AP 1V EXAM: RAD Chest PA or AP 1V INDICATION: FOLLOW-UP PNEUMONIA. COMPARISON: November 14, 2018. DISCUSSION: Left chest wall cardiac conduction device. Cardiomediastinal silhouette is stable in size and contour. No effusion, pneumothorax, or edema. Bibasilar infiltrates have increased when compared to the prior study, left greater than right. IMPRESSION: Bibasilar infiltrates have increased compared to the prior study, left greater than right. Given interval worsening, CT of the chest without contrast may be of value for further characterization. Kunal Michael DO 12/17/18 0911 Thank you for allowing us to participate in the care of your patient.
--- NOTE | 2018-12-17 09:48 | PN ---
Progress Note for ERAN RODRIGUEZ Date: 12/17/2018 Room #: VM.203 SUBJECTIVE: The patient is having more heaviness across his chest with coughing due to his pneumonia. Otherwise, he is a little bit stronger today. He did have his orders changed for x-ray from going to the department portable due to difficulty with transfers. OBJECTIVE: Vital Signs: Weight today is 85, which is up 3 kg from yesterday; temperature is 37.2; pulse is 71; blood pressure is 144/58; respiratory rate is 20; sats are 94% on room air. Heart: Regular rate and rhythm. Lungs: Have some crackles bilaterally. Abdomen: Soft. Urine has greatly improved in color. LABORATORY DATA: Shows his white blood cell count is 4.9, hemoglobin has dropped to 7.7, platelets are 174. Sodium is 139, potassium 4.0, creatinine 2.3, GFR is 27, calcium 10.48. LFTs are normal. CRP is still elevated at 6.9, but it is about the same. Chest x-ray was done which does show left lower lobe infiltrate. IMPRESSION: 1. Left lower lobe pneumonia. 2. Hematuria secondary to prostate cancer. 3. Metastatic prostate cancer. 4. Weakness, multifactorial. 5. Dropping anemia. 6. Chronic kidney disease. PLAN: We will get a sputum culture if one has not been obtained yet. We will transfuse the patient with 1 unit of packed RBCs due to his dropping hemoglobin, symptomatic with weakness with transfers as well as pneumonia and source of blood loss from system. Hopefully, we will give Lasix after transfusion. Did explain risks and benefits of transfusion to the patient, he did agree to accept. The patient's daughter was present as well and we will check lab work tomorrow on patient. GM12/17/2018 08:37:51 MODL: 12/17/2018 09:42:22 /[id number]
[2018-12-17] MEDS: Levofloxacin/Dextrose 5%-Water 750 MG in Premix Bag 1 BAG IV SCH (15:11)
[2018-12-17] MEDS: Finasteride 5 MG Tab PO SCH (20:01)
[2018-12-17] MEDS: Simvastatin 10 MG Tab PO SCH (20:01)
[2018-12-17] MEDS: Citalopram 20 MG Tab PO SCH (20:01)
[2018-12-18] MEDS: Sodium Chloride 0.9% 1,000 ML IV SCH (01:47)
[2018-12-18] MEDS: Albuterol/Ipratropium 3.0-0.5 MG/3 ML Neb Soln NEB SCH ×6 (02:53→22:29)
[2018-12-18] MEDS: Omeprazole 20 MG Cap.CR PO SCH ×2 (06:11→17:23)
[2018-12-18] MEDS: Magnesium Oxide 400 MG Tab PO SCH ×2 (08:08→19:29)
[2018-12-18] MEDS: Levothyroxine 112 MCG Tab PO SCH (08:08)
[2018-12-18] MEDS: Isosorbide Mononitrate 30 MG Tab.ER PO SCH (08:08)
[2018-12-18] MEDS: levETIRAcetam 500 MG Tab PO SCH ×2 (08:08→19:29)
[2018-12-18] MEDS: Cholecalciferol (Vitamin D3) 1,000 Unit Tab PO SCH (08:08)
[2018-12-18] MEDS: Ferrous Sulfate 325 MG Tab PO SCH (08:09)
[2018-12-18] MEDS: Fluticasone Propionate Nasal Spray 16 GM Bottle NASBOTH SCH ×2 (08:09→19:30)
[2018-12-18] MEDS: Gabapentin 300 MG Cap PO SCH ×2 (08:09→19:29)
[2018-12-18] MEDS: Docusate Sodium 100 MG Cap PO SCH ×2 (08:10→19:29)
[2018-12-18] MEDS ORDERED: Sodium Chloride 0.9% 10 ML Syringe FLUSH PRN (08:43)
--- NOTE | 2018-12-18 09:35 | PN ---
Progress Note for ERAN RODRIGUEZ Date: 12/18/2018 Room #: VM.203 SUBJECTIVE: He is feeling stronger today. He is starting to cough more material up out of his lungs. His appetite is improving. He did receive a blood transfusion yesterday, which he did tolerate well. OBJECTIVE: Vital Signs: Objectively, his weight is 85.5 pounds today, which is the same from yesterday. His temperature is 37.1, blood pressure is 144/86, his pulse is 81, sats are 96% on room air. General: Objectively, he is looking much more alert, bright, talkative, can sit up in the room. His daughter is present in the room. Heart: Irregularly, irregular. Lungs: Have some inspiratory crackles on bases. Abdomen: Soft. Urine is deshawn colored. LABORATORY DATA: Lab today shows his hemoglobin is up to 8.3, white blood cell count 5.3. His sodium is 140, potassium 4.4, creatinine stable at 2.3. GFR is 27. A chest x-ray yesterday was read as bibasilar pneumonia. IMPRESSION: 1. Bibasilar pneumonia. 2. Anemia secondary to blood loss, status post transfusion. 3. Metastatic prostate cancer. PLAN: We will switch his IV antibiotics to oral. We will stop his IV fluids. We will continue physical therapies on patient. If he is stable by tomorrow, anticipate discharge home. GM12/18/2018 08:48:56 MODL: 12/18/2018 09:31:33 /[id number]
[2018-12-18] MEDS: Simvastatin 10 MG Tab PO SCH (19:29)
[2018-12-18] MEDS: Finasteride 5 MG Tab PO SCH (19:29)
[2018-12-18] MEDS: Citalopram 20 MG Tab PO SCH (19:29)
[2018-12-18] MEDS: Acetaminophen 325 MG Tab PO PRN (19:30)
[2018-12-19] MEDS: Albuterol/Ipratropium 3.0-0.5 MG/3 ML Neb Soln NEB SCH ×6 (02:30→22:11)
[2018-12-19] MEDS: Omeprazole 20 MG Cap.CR PO SCH ×2 (06:16→18:06)
[2018-12-19 07:00] LABS: ANION GAP 12.2 mmol/L (10-20)
[2018-12-19] MEDS ORDERED: Levofloxacin 250 MG Tab PO SCH (07:00)
[2018-12-19] MEDS: Gabapentin 300 MG Cap PO SCH ×2 (07:43→20:00)
[2018-12-19] MEDS: Isosorbide Mononitrate 30 MG Tab.ER PO SCH (07:43)
[2018-12-19] MEDS: Cholecalciferol (Vitamin D3) 1,000 Unit Tab PO SCH (07:43)
[2018-12-19] MEDS: Docusate Sodium 100 MG Cap PO SCH ×2 (07:43→20:00)
[2018-12-19] MEDS: Levothyroxine 112 MCG Tab PO SCH (07:43)
[2018-12-19] MEDS: Magnesium Oxide 400 MG Tab PO SCH ×2 (07:44→20:00)
[2018-12-19] MEDS: levETIRAcetam 500 MG Tab PO SCH ×2 (07:44→20:00)
[2018-12-19] MEDS: Fluticasone Propionate Nasal Spray 16 GM Bottle NASBOTH SCH ×2 (07:44→20:01)
[2018-12-19] MEDS: Ferrous Sulfate 325 MG Tab PO SCH (07:44)
--- NOTE | 2018-12-19 08:45 | PN ---
Progress Note for ERAN RODRIGUEZ Date: 12/19/2018 Room #: VM.203 SUBJECTIVE: The patient is feeling stronger. He does have a little bit of a cough. He has been walking with physical therapy; however, he still requires assistance and is weak. OBJECTIVE: Vital Signs: His weight is 85.7 kg, which is stable. His temperature is 36.7, blood pressure is 140/78, respirations are 18, and saturations are 98%. Skin: Pale, warm, and dry. Heart: Regular rate and rhythm. Lungs: Do reveal some inspiratory crackles on bases. Abdomen: Soft. Urine is yellow in color. LABORATORY DATA: His lab today shows that his hemoglobin is 8.5. Sodium is 142, potassium 4.2, creatinine is stable at 2.2. IMPRESSION: 1. Bilateral pneumonia. 2. Anemia secondary to blood loss. 3. Metastatic prostate cancer. 4. Debilitation. PLAN: We will continue the patient on acute care one more day as he is benefitting by therapies. We will repeat chest x-ray today just to see how his pneumonia is going. Do anticipate tomorrow he will be transitioned back to assisted living. GM12/19/2018 08:22:21 MODL: 12/19/2018 08:34:51 /[id number]
--- NOTE | 2018-12-19 09:33 | CR ---
1237-2018 RAD/RAD Chest PA And Lateral EXAM: RAD Chest PA And Lateral CLINICAL DATA: FOLLOW-UP PNEUMONIA COMPARISON: CORRELATION IS MADE WITH THE EXAM OF DECEMBER 17, 2018. FINDINGS: Mild pleural thickening is seen at the lung bases. The lungs otherwise are clear but hyperaerated. There are old right rib fractures. The cardiomediastinal contour is stable. A pacemaker is seen. IMPRESSION: AIR TRAPPING. NO PNEUMONIA CURRENTLY. Devyn Ortiz MD 12/19/18 0929 Thank you for allowing us to participate in the care of your patient.
[2018-12-19] MEDS: Acetaminophen 325 MG Tab PO PRN (20:00)
[2018-12-19] MEDS: Finasteride 5 MG Tab PO SCH (20:00)
[2018-12-19] MEDS: Citalopram 20 MG Tab PO SCH (20:01)
[2018-12-19] MEDS: Simvastatin 10 MG Tab PO SCH (20:01)
[2018-12-20] MEDS: Albuterol/Ipratropium 3.0-0.5 MG/3 ML Neb Soln NEB SCH ×2 (02:47→06:18)
[2018-12-20] MEDS: Omeprazole 20 MG Cap.CR PO SCH ×2 (06:19→17:21)
[2018-12-20] MEDS: Cholecalciferol (Vitamin D3) 1,000 Unit Tab PO SCH (08:23)
[2018-12-20] MEDS: Gabapentin 300 MG Cap PO SCH (08:23)
[2018-12-20] MEDS: levETIRAcetam 500 MG Tab PO SCH (08:24)
[2018-12-20] MEDS: Magnesium Oxide 400 MG Tab PO SCH (08:24)
[2018-12-20] MEDS: Levothyroxine 112 MCG Tab PO SCH (08:24)
[2018-12-20] MEDS: Ferrous Sulfate 325 MG Tab PO SCH (08:24)
[2018-12-20] MEDS: Fluticasone Propionate Nasal Spray 16 GM Bottle NASBOTH SCH (08:24)
[2018-12-20] MEDS: Docusate Sodium 100 MG Cap PO SCH (08:24)
[2018-12-20] MEDS: Isosorbide Mononitrate 30 MG Tab.ER PO SCH (08:27)
--- NOTE | 2018-12-20 10:11 | PN ---
Progress Note for ERAN RODRIGUEZ Date: 12/20/2018 Room #: VM.203 SUBJECTIVE: The patient is feeling much stronger. He is eager for discharge to home. He wants to go home. His daughter, Ramiro, is present in the room and is quite concerned about him being strong enough to stay at home. Last time when he had gone home, he ended up coming back the next day. The patient's urine is now back to yellow in color. OBJECTIVE: Vital Signs: His weight is 85.5, which is stable. His blood pressure is 149/57, which is not that concerning; temperature is 36.7; pulse is 74; respiratory rate is 18; and saturations are 98%. General: He is much more alert, bright, happy, smiling. Heart: Regular rate. Lungs: Have diminished breath sounds on bases. No crackles or wheezes. Abdomen: Soft. Urine is yellow. LABORATORY DATA: Lab today is still pending. His chest x-ray yesterday showed resolution of pneumonia. IMPRESSION: 1. Pneumonia, resolved. 2. Anemia secondary to blood loss. 3. Metastatic prostate cancer. 4. Weakness, which is improving. PLAN: The patient will see therapies today. We will have him otherwise continue with therapy. We will stop his nebs as they have caused some tremoring, and if the patient goes home and is too weak to transfer, he can come back today, and discharge will be canceled if he goes home, and he would return tomorrow, then he would have to be reassessed by myself; if it is just weakness to be placed on swing bed versus if it is a fall or hip, then he would need to be seen in the emergency room. GM12/20/2018 08:39:33 MODL: 12/20/2018 09:05:14 /[id number]
[2018-12-20 13:28] VITALS: BP 150/70
--- NOTE | 2018-12-20 14:48 | DISCH ---
PRIMARY DIAGNOSES: 1. Bilateral basal pneumonia with;. 2. Anemia secondary to blood loss from source with;. 3. Metastatic prostate cancer. 4. Weakness secondary to prostate cancer. 5. Dehydration. 6. Chronic kidney disease. 7. Mild cognitive dysfunction. 8. Elevated blood pressure secondary to medication. SUMMARY OF ADMIT H AND P: The patient is an 87-year-old male, who has currently been undergoing treatment for prostate cancer with indwelling catheter due to problems with urinary retention with enlarged prostate. The patient had radiation of his prostate a few weeks ago and plan is to eventually have a suprapubic catheter. When the patient presented to the emergency room, he was feeling chilled, temperature was 99.4. He was very weak, could not move around. On physical exam, his blood pressure was 125/56, pulse was 70, respiratory rate was 16, sats are 93% on room air. His lab shows white blood cell count 12.3, hemoglobin 8.3, platelets are 213, 77 segs, 12 lymphocytes, 9 monos. Sodium is 136, potassium 4.1, creatinine 2.3, GFR 27, glucose ?. Liver function tests were normal. CRP 7.2, albumin 2.8. Lactic acid was checked, it was 0.8. Urinalysis showed turbid urine, greater than 300 mg of protein, packed red blood cells, 10-20 white blood cells, no bacteria seen. SUMMARY OF HOSPITAL COURSE: He was given a shot of IV Rocephin at first in the emergency room, placed on IV fluids. Cultures were obtained. Therapies were ordered. The patient was noted to develop more of a cough. Chest x-ray was obtained which did show infiltrate. He was placed on nebs. He was switched from Rocephin to Levaquin on 12/15/2018, when cultures came back showing gram- negative rods. He had been checked for influenza that was negative. The patient received Levaquin every 48 hours due to renal function. His lab was followed. His hemoglobin had dropped down to 7.1 by 12/17/2018, and because of illness, weakness, it was felt that he would benefit by transfusion, so he was transfused 1 unit of packed RBCs and his hemoglobin actually improved up to 8.8 on the day of discharge. White blood cell count had dropped down to 4.9. Renal function was monitored, and after hydration, his best creatinine was 2.2 by 12/19/2018, and GFR had stabilized at 28. Magnesium was checked, it was 1.8. Cultures of urine showed coag-negative staph, which was 10 to the 6th, felt to be a contaminant, and Enterobacter cloacae less than 10 to 5th. The patient continued to progress nicely with therapies and by 12/20/2018, it was felt that he was at his baseline, he was doing well with therapies with transferring in and out of bed as well as walking in the hallways, and he was felt stable for discharge home. The albuterol nebs were just discontinued at the day of discharge because he was having problems with tremulousness and his blood pressure was up to 150s/70s. Now, [id number] visit was held right now on 12/20/2018, and the patient would benefit by home health to see him with home physical therapy. The patient would require others to transport him to appointments. He cannot walk further than 50 feet without becoming weak. He does use a wheeled walker for ambulation. I will be monitoring his progress with home health. The patient should follow up to see me in 10 days time for recheck at the clinic. His resuscitation status at the time of discharge is do not resuscitate/do not intubate. He will continue with his indwelling mensah catheter. MEDICATIONS AT THE TIME OF DISCHARGE: Will be Levaquin 750 mg to be given on 12/21/2018 and 12/23/2018 and then stop. All his other medicines will be Tylenol 325, he takes 3 pills 4 times a day for pain as needed; casodex 50 mg daily; vitamin D 2000 units daily; docusate 100 mg 1 pill twice a day; Lexapro 10 mg at bedtime; ferrous sulfate 325 mg at breakfast; finasteride 5 mg 1 pill at bedtime; Flonase 1 spray twice a day as needed; gabapentin 300 mg 1 pill twice a day; isosorbide mononitrate 30 mg daily; Keppra 250 mg q.12 h; he is on levothyroxine 112 mcg, he takes 56 mcg daily; magnesium oxide 400 mg 1 pill twice a day; omeprazole 20 mg 1 pill twice a day; simvastatin 10 mg at bedtime; Tylenol 1000 mg 3 times a day p.r.n.; milk of magnesia 30 mL daily p.r.n. GM12/20/2018 08:59:36 MODL: 12/20/2018 14:43:28 /[id number]
== END 2018-12-20 17:35 | disposition home health service (06) | DRG 698 ==
LOC: VM.ED 11:36 → VM.MS 13:36
PROVIDERS: ADMIT Nurse Practitioner Family; ATTEND Family Medicine
PROC: 30233N1 Transfusion of Nonautologous Red Blood Cells into Peripheral Vein, Percutaneous Approach (ICD-10-PCS; principal; 2018-12-17)
DX: T83.511A Infection and inflammatory reaction due to indwelling urethral catheter, initial encounter (principal); J18.1 Lobar pneumonia, unspecified organism; D62 Acute posthemorrhagic anemia; N30.01 Acute cystitis with hematuria; N17.9 Acute kidney failure, unspecified; R65.10 Systemic inflammatory response syndrome (SIRS) of non-infectious origin without acute organ dysfunction; I13.0 Hypertensive heart and chronic kidney disease with heart failure and stage 1 through stage 4 chronic kidney disease, or unspecified chronic kidney disease; Z66 Do not resuscitate; C61 Malignant neoplasm of prostate; E86.0 Dehydration; G31.84 Mild cognitive impairment of uncertain or unknown etiology; R03.0 Elevated blood-pressure reading, without diagnosis of hypertension; J30.9 Allergic rhinitis, unspecified; I48.91 Unspecified atrial fibrillation; I25.10 Atherosclerotic heart disease of native coronary artery without angina pectoris; I50.9 Heart failure, unspecified; I25.2 Old myocardial infarction; K59.09 Other constipation; G20 Parkinson's disease; E03.9 Hypothyroidism, unspecified; E55.9 Vitamin D deficiency, unspecified; K62.89 Other specified diseases of anus and rectum; N18.3 Chronic kidney disease, stage 3 (moderate); Z88.8 Allergy status to other drugs, medicaments and biological substances; Z88.5 Allergy status to narcotic agent; Z79.899 Other long term (current) drug therapy; Z95.0 Presence of cardiac pacemaker; Z85.828 Personal history of other malignant neoplasm of skin; Y84.6 Urinary catheterization as the cause of abnormal reaction of the patient, or of later complication, without mention of misadventure at the time of the procedure
CPT/HCPCS: 36415; 36430; 71045; 71046; 71250; 74176; 80048; 80053; 81001; 83605; 83735; 85018; 85025; 86140; 86850; 86900; 86901; 86920; 86922; 87040; 87070; 87086; 87088; 87186; 87205; 87804; 87804-59; 94640; 94760; 96360; 96361; 97110-GP; 97116-GP; 97162-GP; 97165-GO; 97535-GO; 99285; A9270-GY; J0696; J1940; J1956; J7030; J7620-GY; P9016

== ENCOUNTER 2019-01-19 07:40 | Inpatient (IN) | payer MEDICARE, OTHER ==
[2019-01-19] MEDS ORDERED: Sodium Chloride 0.9% 1,000 ML IV ONE (09:00)
[2019-01-19] MEDS ORDERED: cefTRIAXone 1 GM Vial ONE (09:10)
[2019-01-19 10:11] LABS: ANION GAP 15.2 mmol/L (10-20)
[2019-01-19] MEDS ORDERED: Magnesium Hydroxide 400 MG/5 ML Susp 30 ML Cup PO PRN (10:30)
[2019-01-19] MEDS: BICALUTAMIDE 50 MG PO SCH (11:58)
[2019-01-19] MEDS: Acetaminophen 325 MG Tab PO PRN ×2 (11:58→18:16)
[2019-01-19] MEDS: levETIRAcetam 500 MG Tab PO SCH ×2 (11:58→19:28)
[2019-01-19] MEDS: Magnesium Oxide 400 MG Tab PO SCH ×2 (11:59→19:29)
[2019-01-19] MEDS: Isosorbide Mononitrate 30 MG Tab.ER PO SCH ×4 (11:59→12:23)
[2019-01-19] MEDS: Ciprofloxacin in D5W 200 MG in Premix Bag 1 BAG IV SCH ×2 (12:00)
[2019-01-19] MEDS: Sodium Chloride 0.9% 1,000 ML IV SCH ×2 (12:01→21:14)
--- NOTE | 2019-01-19 14:18 | HP ---
CHIEF COMPLAINT: Weakness. HISTORY OF PRESENT ILLNESS: The patient has been decreasing over the last 3-4 days per family. He complained of some back pain yesterday and has abdominal pressure. He is quite somnolent this morning. He has not taken anything to sedate him, but he is able to answer questions, but mostly his daughters do speak for him. He has not had any fevers, but has felt chilled. He has had decreased urine output. He had a suprapubic catheter placed several weeks ago, and then earlier this week on Sunday, there was some fracture of it. He had to go down to [place] on Sunday to get this replaced, it was on the . His legs have also been weak. He has been unsteady with his walker. He had brown urine yesterday. He has had a lot of trouble with blood in the urine and anemia from that. He had a previous admission in November for urinary tract infection and pneumonia. He did grow Enterobacter. He was treated initially with Cipro and went home on Levaquin. He has had decreased oral intake. He has been having a little bit of cold symptoms, but not too much for coughing. Otherwise, he does have a history of prostate cancer with bony metastasis. He has had previous UTIs. He has had hyperlipidemia, hypothyroidism, essential hypertension, chronic kidney disease. His creatinine in the clinic has been around 1.8 to 2.0. He has also had a TURP in the past. He has had an adrenal incidentaloma. He has had colon polyps, previous GI bleed with AVMs, chronic AFib, but he is not on Coumadin, chronic diastolic heart failure with EF 65% in 2014. He has had chronic headaches. He has had cognitive dysfunction with previous subdural hematoma in 2014. He has had coronary artery disease with a remote AR in 1971. He has had diverticulosis. 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 He has had bradycardia with pacemaker placement. Surgically, as above. Otherwise, he did have his biopsy for prostate at the [facility]. He has had a tonsillectomy. He has had a right salivary duct stone removed, pacemaker battery replacement, cystourethroscopy. He has had a craniotomy with a right che hole in 2014, cholecystectomy, appendectomy, and cataract extraction. SOCIAL HISTORY: The patient is . He is a retired medrano. He lives at [facility] with his . He has several children, 2 daughters are present during our interview. He did smoke, but quit many years ago. He was in the [place] [employer]. FAMILY HISTORY: Both parents are . He has a sister who is living. ALLERGIES: Selegiline, YOSEF inhibitors, carbidopa, hydrocodone, levodopa, oxycodone, pramipexole. MEDICATION LIST: Tylenol p.r.n., vitamin D 2000 daily, ferrous sulfate 325 daily, Casodex 50 mg daily, docusate 100 mg b.i.d., Lexapro 10 mg at bedtime, Proscar 5 mg daily, Flonase nasal spray, gabapentin 300 b.i.d., Imdur 30 mg daily, Keppra 250 b.i.d., Synthroid 56 mcg daily, milk of magnesia as needed, magnesium oxide 400 b.i.d., Prilosec 20 mg b.i.d., and Zocor 10 mg at bedtime. REVIEW OF SYSTEMS: General: Just generally weak. No reported weight changes. HEENT: Some congestion. No sore throat. Cardiac: No chest pain. No palpitations. Respiratory: No new cough or shortness of breath, but family did feel they heard some wheezing, otherwise. GI: He had a bowel movement yesterday. No reports of diarrhea or constipation. Some stomach pressure, but no nausea or vomiting. Musculoskeletal: Again, low back pain. Otherwise, no new joint pains. Otherwise, all systems reviewed and found to be negative unless otherwise stated. PHYSICAL EXAMINATION: Vital Signs: On presentation to the hospital, blood pressure was 138/75, but currently charted at 190/71. His weight is 82.1 kg. Temp 98.7, pulse 76, respiratory rate 18, and O2 of 97% on room air. General: He is in no acute distress. He is resting comfortably in his bed. Heart: Regular rate and rhythm. S1, S2 without murmur. Lungs: Lung sounds are clear to auscultation bilaterally without crackles or wheezes. Abdomen: Positive bowel sounds. Soft, nondistended, nontender. Suprapubic catheter is in place. There is just some slight scab with minimal redness. No drainage. No suggestions of an infection. Extremities: They are pale. There is no edema. Mental Status: He is alert and able to answer questions with yes or no, but does fall back asleep easily. DIAGNOSTIC DATA: Otherwise, the diagnostic data does include an abdominal CT which showed a suprapubic catheter in place with irregular thickened bladder adler, could be from cystitis or underdistended bladder. Otherwise, he had the adrenal adenoma and all other changes that were chronic. No evidence for a bowel obstruction. Chest x-ray did not show any infiltrates. His lab work was done and did review an elevated white count 11.2, hemoglobin 8.8, platelets are 244. Sodium 135, potassium 4.2, chloride 101, bicarb 23, BUN 18, creatinine 2.1, glucose 143, lactic 1.2, calcium 9.5, albumin 3, CRP is 3.6, AST is 18, ALT 10, alkaline phosphatase 61, bilirubin 0.5. UA did show a positive nitrite, greater than 100 of rbc's, trace leukocyte esterase, but only 0-5 on a cath specimen. ASSESSMENT: 1. Complicated urinary tract infection in a patient with recent suprapubic catheter. He did receive 1 g of Rocephin in the ER. Based on past cultures, I am going to place him on Cipro 200 q.18 hours due to renal function. With his comorbidities, I expect he will be here at least 2 nights. 2. Chronic anemia. Hemoglobin is 8.8. We will monitor daily and transfuse if indicated per Dr. Bolden. 3. Chronic kidney disease. His creatinine used to be 1.4 in the past, now his new baseline is around 1.8 to 2.0. We will give him some gentle IV fluids and follow lab work tomorrow. 4. History of Parkinson's. We will continue his home medications. 5. Possible upper respiratory infection. We will start him on some nasal rinses and monitor. 6. Anxiety and depression. We will continue home medications. 7. Metastatic prostate cancer. He is on Casodex. 8. Remote history of coronary disease and heart failure. We will monitor closely as we give him IV fluids. 9. Essential hypertension. He does have Imdur ordered. He missed his medications this morning, but we will get him a dose of that due to elevated blood pressure. 10.Hematuria, seems to be improved currently. We will continue to monitor. He has a suprapubic in place for that. He will continue Proscar. 11.Deconditioning. We will get PT involved. 12.Hypothyroidism. We will check a TSH tomorrow. 13.Moderate malnutrition. We will continue to monitor and encourage p.o. intake. He probably should be on some outpatient protein supplements. 14.Deconditioning. He was currently on home health with home PT. PLAN: At this point, the patient will be admitted to acute cares. We will gently rehydrate with IV fluids, normal saline 100 per hour for a L. We will give him IV Cipro. We will culture his urine. We will repeat labs in the morning. He is a code level 3. Due to ongoing hematuria, I will hold off on any Lovenox, but I will place him on some SCDs. If no further hematuria, could start Lovenox because he would be high risk for DVT. MKA: 01/19/2019 10:49:19 MODL: 01/19/2019 11:36:35 /[id number]
[2019-01-19] MEDS: Omeprazole 20 MG Cap.CR PO SCH (17:33)
[2019-01-19] MEDS: Simvastatin 10 MG Tab PO SCH (19:28)
[2019-01-19] MEDS: Docusate Sodium 100 MG Cap PO SCH ×2 (19:28→19:30)
[2019-01-19] MEDS: Finasteride 5 MG Tab PO SCH (19:28)
[2019-01-19] MEDS: Citalopram 20 MG Tab PO SCH (19:29)
[2019-01-19] MEDS: Fluticasone Propionate Nasal Spray 16 GM Bottle ** OWN MED NASBOTH SCH (19:29)
[2019-01-19] MEDS: Gabapentin 300 MG Cap PO SCH (19:29)
[2019-01-19] MEDS: Sodium Chloride 0.65% Nasal Spray 45 ML Bottle NAS SCH (19:31)
[2019-01-20] MEDS: Acetaminophen 325 MG Tab PO PRN ×2 (00:02→17:21)
[2019-01-20] MEDS: LORazepam 0.5 MG Tab PO PRN ×2 (02:22→06:09)
[2019-01-20] MEDS: Ciprofloxacin in D5W 200 MG in Premix Bag 1 BAG IV SCH ×4 (05:06→22:04)
[2019-01-20] MEDS: Omeprazole 20 MG Cap.CR PO SCH ×2 (06:09→17:21)
[2019-01-20 07:22] LABS: ANION GAP 12.9 mmol/L (10-20)
[2019-01-20] MEDS: Magnesium Oxide 400 MG Tab PO SCH ×3 (07:34→19:53)
[2019-01-20] MEDS: Levothyroxine 112 MCG Tab PO SCH (07:34)
[2019-01-20] MEDS: Gabapentin 300 MG Cap PO SCH ×2 (07:34→19:54)
[2019-01-20] MEDS: Isosorbide Mononitrate 30 MG Tab.ER PO SCH (07:34)
[2019-01-20] MEDS: levETIRAcetam 500 MG Tab PO SCH ×2 (07:34→19:54)
[2019-01-20] MEDS: Docusate Sodium 100 MG Cap PO SCH ×2 (07:34→07:43)
[2019-01-20] MEDS: BICALUTAMIDE 50 MG PO SCH (07:35)
[2019-01-20] MEDS: Fluticasone Propionate Nasal Spray 16 GM Bottle ** OWN MED NASBOTH SCH ×2 (07:35→19:55)
[2019-01-20] MEDS: Sodium Chloride 0.65% Nasal Spray 45 ML Bottle NAS SCH ×2 (07:43→19:55)
[2019-01-20] MEDS: Sodium Chloride 0.9% 1,000 ML IV SCH ×2 (07:44→19:59)
[2019-01-20] MEDS: QUEtiapine 25 MG Tab PO SCH (08:40)
--- NOTE | 2019-01-20 09:08 | CR ---
[id number] RAD/RAD Chest PA or AP 1V EXAM: RAD Chest PA INDICATION: WEAKNESS, URINE RETENTION, BACK PAIN. COMPARISON: December 19, 2018. DISCUSSION: Left chest wall cardiac conduction device. Cardiomediastinal silhouette is stable in size and contour. No infiltrate, effusion, pneumothorax, or edema. Pulmonary hyperinflation. IMPRESSION: No acute cardiopulmonary abnormality. Kunal Michael DO 01/20/19 0907 Thank you for allowing us to participate in the care of your patient.
--- NOTE | 2019-01-20 09:17 | CT ---
[id number] CT/CT Abdomen Pelvis WO IV EXAM: CT Abdomen Pelvis WO IV CLINICAL DATA: WEAKNESS, URINE RETENTION, BACK PAIN, PYLONEPHRITIS. COMPARISON STUDY: 12/15/2018. FINDINGS: Dependent atelectasis at the lung bases. Numerous cysts of varying size and density throughout both kidneys. Largest cyst is on the left and measures 8 cm in maximum dimension. The cysts have not significantly changed in size or appearance compared to the prior examination. Identified is hyperdense material within the left renal pelvis extending into the proximal ureter. No obstructing stone or mass is radiographically evident. There is asymmetric perinephric fat stranding left. Urinary bladder is decompressed by suprapubic catheter. The bladder wall demonstrates irregular thickening. While this may relate underdistention could be seen with cystitis. Stable coarse calcification adjacent to the gallbladder fossa, similar to the prior examination. Liver is otherwise unremarkable. Gallbladder has been resected. Spleen, pancreas, and adrenal glands are unremarkable. 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 Numerous fluid-filled loops of small bowel. No evidence of small bowel or colonic obstruction. Colonic diverticulosis lines of acute diverticulitis. There is thickening of the rectal wall with a mild amount of stranding in the mesorectum. Correlate for proctitis. Atherosclerotic calcifications of the aorta and its branches. Bones and soft tissues: No new osseous lesions. No evidence of osteomyelitis/discitis. Scattered changes of spondylosis the spine. IMPRESSION: 1. There are multiple renal cysts seen bilaterally of various densities. These are not significantly changed when compared to the prior study. Additionally there are stable hyperdense material in the left renal collecting system. Additionally there is asymmetric left perinephric fat stranding. Again this was seen on the prior study and is of uncertain clinical significance. 2. Suprapubic catheter with irregular thickened bladder adler. While this may be related to underdistention, correlation for cystitis is recommended. Michael DO 01/20/19 0916 Thank you for allowing us to participate in the care of your patient.
--- NOTE | 2019-01-20 09:21 | PN ---
Progress Note for ERAN RODRIGUEZ Date: 01/20/2019 Room #: VM.217 SUBJECTIVE: The patient was quite restless during the night and had been given some Ativan. Subsequently, he has gotten much more confused this morning, delirious, hallucinating, not resting well. His daughter had been contacting me as an outpatient. The patient has been becoming more weak and his hemoglobin had dropped slightly at home down to 8.3. [facility]. He has been having problems with his suprapubic catheter. When he was admitted, CT scan of his abdomen did show some thickening around the wall of his bladder. Report isn't available to me right now. The patient had been placed on Cipro for IV antibiotics as well as hydration. It is noted that he does have chronic kidney disease with his creatinine had been staying around 2. He has not been drinking well. He has been noted to be much more weaker as well. When he was first admitted, his blood pressure had been high, but it was felt to be due to agitation and it had dropped, and now with agitation, he is worried it is starting to go up again. OBJECTIVE: Vital Signs: His temperature is 36.6, blood pressure is 153/58, pulse is 71, sats are 98%, respiratory rate 16. General: He is lying in bed. He is noted to be confused. He seeing things such as his mother in the room and stuff piled up on the tray. He is noted to be pale. His catheter is present. He does have dark deshawn to bloody colored urine. Heart: Irregularly irregular. LUNGS: Diminished breath sounds on bases. ABDOMEN: Soft, nontender. LABORATORY DATA: His lab today shows that his hemoglobin has dropped down to 7.5 after hydration from 8.8 on admission. White blood cell count is 7.9, platelets are 212, with 65 segs, 20 lymphocytes, 13 monos. Sodium is 137, potassium 3.9, creatinine is up to 2.2, BUN 20, his glucose is 99, magnesium is dropped down to 1.5. LFTs on admission were normal. ProBNP was 1017 on admission. TSH is normal 1.29. Urinalysis had much blood present, trace leukocyte esterase. Urine culture is growing gram-negative jt. IMPRESSION: 1. Systemic inflammatory response syndrome. 2. Complicated urinary tract infection with gram-negative rods. 3. Confusion multifactorial. 4. Dropping anemia due to acute blood loss. 5. Hematuria. 6. Metastatic prostate cancer. 7. Hypomagnesemia. 8. Hypertension. 9. Parkinson's. 10.Mild cognitive dysfunction. PLAN: We will transfuse the patient today as I do feel his blood loss is contributing to his confusion and weakness. Risks, benefits of blood transfusions were explained to family and patient included risk of infection, reaction. They do agree to proceed. We will place the patient on Seroquel as an antipsychotic to help with patient's confusion delirium. We will stop his Ativan as that did cause confusion and that should be really written is a reaction to medications for patient. We will increase his oral magnesium due to his low magnesium levels. We will have social secretary meet with patient and family as the patient may be at the point of needing to consider hospice and/or palliative care. We will check a PSA levels. We have not checked that in our system to see where he is at with that. His daughter says his levels have been lower on 1.3. We have not checked in the clinic for some time and we will have Physical therapy work with patient for strengthening as well. The patient may succumb to his current health problems because as per metastatic prostate cancer with his chronic renal disease. We will continue him on Cipro right now until urine cultures are available. GM01/20/2019 08:38:22 MODL: 01/20/2019 09:16:52 /[id number]
--- NOTE | 2019-01-20 14:09 | CT ---
[id number] CT/CT Head WO IV EXAM: NONCONTRAST HEAD CT INDICATION: Delirium and metastatic prostate cancer. COMPARISON: November 07, 2018. DISCUSSION: There are 2 right-sided che holes which have not changed. There is moderate generalized atrophy. Moderate multifocal white matter hypoattenuation is nonspecific, but generally ascribed to chronic small vessel ischemia. Scattered chronic basal ganglia and white matter lacunar infarcts. No mass effect or midline shift. No acute hemorrhage or extra-axial fluid collection. No acute territorial infarct is identified. Fluid within the right sphenoid and left maxillary sinus is compatible with acute sinusitis. There is mild to moderate bilateral ethmoid sinus mucosal thickening. IMPRESSION: 1. Acute left maxillary and right sphenoid sinusitis. 2. No acute intracranial findings. Krishna Alatorre MD 01/20/19 5204 Thank you for allowing us to participate in the care of your patient.
[2019-01-20] MEDS ORDERED: QUEtiapine 25 MG Tab PO PRN (17:08)
[2019-01-20] MEDS ORDERED: Docusate Sodium 100 MG Cap PO PRN (19:48)
[2019-01-20] MEDS: Citalopram 20 MG Tab PO SCH (19:53)
[2019-01-20] MEDS: Simvastatin 10 MG Tab PO SCH (19:54)
[2019-01-20] MEDS: Finasteride 5 MG Tab PO SCH (19:54)
[2019-01-21] MEDS: Sodium Chloride 0.9% 1,000 ML IV SCH ×2 (04:51→16:46)
[2019-01-21] MEDS: Omeprazole 20 MG Cap.CR PO SCH ×2 (06:39→16:56)
[2019-01-21] MEDS: Magnesium Oxide 400 MG Tab PO SCH ×3 (08:00→20:39)
[2019-01-21] MEDS: QUEtiapine 25 MG Tab PO SCH (08:00)
[2019-01-21] MEDS: Fluticasone Propionate Nasal Spray 16 GM Bottle ** OWN MED NASBOTH SCH ×2 (08:00→20:38)
[2019-01-21] MEDS: Sodium Chloride 0.65% Nasal Spray 45 ML Bottle NAS SCH ×2 (08:00→20:54)
[2019-01-21] MEDS ORDERED: Furosemide 20 MG/2 ML VIAL IV ONE ×2 (08:27→12:45)
[2019-01-21] MEDS: Isosorbide Mononitrate 30 MG Tab.ER PO SCH (08:35)
[2019-01-21] MEDS: levETIRAcetam 500 MG Tab PO SCH ×2 (08:36→20:38)
[2019-01-21] MEDS: Gabapentin 300 MG Cap PO SCH ×2 (08:36→20:38)
[2019-01-21] MEDS: BICALUTAMIDE 50 MG PO SCH (08:42)
[2019-01-21] MEDS ORDERED: QUEtiapine 25 MG Tab PO PRN (09:00)
--- NOTE | 2019-01-21 09:33 | PN ---
Progress Note for ERAN RODRIGUEZ Date: 01/21/2019 Room #: VM217 SUBJECTIVE: The patient is an 88-year-old male who is now his hospital day #3, having been admitted for complicated UTI. He was noted yesterday morning to be extremely restless, but then became somnolent after having been given Ativan during the night. He was started on Seroquel which did seem to make him more comfortable throughout the day. He was noted to be restless again by the evening and was given possibly a dose of Seroquel p.r.n. last evening. The patient also does seem to be confused, so he had a head CT yesterday which did show some normal atrophy of his brain and then acute sinusitis. His daughter, Ramiro, is by him at bedside today. It is noted that his blood pressure has been creeping up a little bit. He has been a little bit congested after his blood transfusion yesterday. He normally has not been on medications for blood pressure for quite some time. OBJECTIVE: VITAL SIGNS: Objectively, his weight 81.28 which is about the same from admission. Temperature 37.1, pulse is 70, blood pressure is 168/67, respiratory rate 18, saturations are 96% on room air. SKIN: Noted to be pale. HEART: Regular rate. LUNGS: Do reveal some inspiratory congestion at bases. ABDOMEN: Soft. GENITOURINARY: Urine is a little more clearer in terms of tea-colored. LABORATORY DATA: Today his urine cultures coming back showing Stenotrophomonas maltophilia organism as well as a Streptococcus species going to be identified. His white blood cell count is improved to 6.7, hemoglobin improved to 9.7 after transfusion. Platelet count is 242 with 68 segs, 19 lymphocytes. Sodium is 143, potassium 4.0, chloride 109, creatinine stable at 2.0, GFR 32, calcium 10.64, magnesium improved to 1.8. LFTs normal. CRP is slightly elevated to 5.9 from 3.6. IMPRESSION: 1. Complicated urinary tract infection. 2. Delirium. 3. Anemia secondary to blood loss, which is improved. 4. Chronic kidney disease. 5. Hypertension. 6. Mild pulmonary congestion. 7. Metastatic prostate cancer. 8. Cognitive dysfunction. 9. Parkinson's disease. 10.Sinusitis. PLAN: We will check blood gases on the patient today, making sure that he is having normal CO2 and O2 exchanges. We will reduce the dose of Seroquel for the patient to hopefully make him less somnolent. We will give him an IV dose of Lasix to help with pulmonary congestion, and we will need to monitor his blood pressure. We may need to consider adding amlodipine due to his renal function. The organism for his bladder infection is sensitive to Levaquin, so would presume Cipro would also be effective. I did talk with daughter about the patient if does not mentally become more alert, may need to think about placing the patient more on palliative care, and he may be nearing a terminal point of his metastatic prostate cancer. Still waiting for his PSA level that was drawn to come back. We will continue IV fluids at the same rate as suprapubic catheter still in place. GM01/21/2019 08:34:29 MODL: 01/21/2019 09:25:58 /[id number]
[2019-01-21] MEDS: Levothyroxine 112 MCG Tab PO SCH (12:18)
[2019-01-21] MEDS: Ciprofloxacin in D5W 200 MG in Premix Bag 1 BAG IV SCH ×2 (16:52)
[2019-01-21] MEDS: Acetaminophen 325 MG Tab PO PRN (18:09)
[2019-01-21] MEDS: Simvastatin 10 MG Tab PO SCH (20:39)
[2019-01-21] MEDS: Finasteride 5 MG Tab PO SCH (20:39)
[2019-01-21] MEDS: Citalopram 20 MG Tab PO SCH (20:39)
[2019-01-22] MEDS: Sodium Chloride 0.9% 1,000 ML IV SCH ×2 (03:27→11:24)
[2019-01-22] MEDS: Omeprazole 20 MG Cap.CR PO SCH ×2 (06:21→18:04)
[2019-01-22] MEDS: Levothyroxine 112 MCG Tab PO SCH ×2 (06:25→09:07)
[2019-01-22 07:12] LABS: ANION GAP 12.8 mmol/L (10-20)
[2019-01-22] MEDS: Isosorbide Mononitrate 30 MG Tab.ER PO SCH (09:04)
[2019-01-22] MEDS: Acetaminophen 325 MG Tab PO PRN ×2 (09:05→18:04)
[2019-01-22] MEDS: levETIRAcetam 500 MG Tab PO SCH ×2 (09:05→19:12)
[2019-01-22] MEDS: amLODIPine 2.5 MG Tab PO SCH (09:05)
[2019-01-22] MEDS: Gabapentin 300 MG Cap PO SCH ×2 (09:05→19:13)
[2019-01-22] MEDS: Magnesium Oxide 400 MG Tab PO SCH ×3 (09:05→19:13)
[2019-01-22] MEDS: Fluticasone Propionate Nasal Spray 16 GM Bottle ** OWN MED NASBOTH SCH ×2 (09:06→19:14)
[2019-01-22] MEDS: Sodium Chloride 0.65% Nasal Spray 45 ML Bottle NAS SCH ×2 (09:06→19:13)
[2019-01-22] MEDS: BICALUTAMIDE 50 MG PO SCH (09:06)
--- NOTE | 2019-01-22 09:28 | PN ---
Progress Note for ERAN RODRIGUEZ Date: 01/22/2019 Room #: VM.217 SUBJECTIVE: The patient is more alert today. He did not receive any Seroquel yesterday as he had been quite somnolent throughout the day. This morning, he is having problems with some constipation, but he has not been very active. He is still weak. His catheter is draining more of a receiver dispatcher colored urine today. His daughter, Tiffany, is present in the room. OBJECTIVE: Vital Signs: Objectively, his weight is 81.9 kilos which is up 0.7 kilo from yesterday. His blood pressure continues to be elevated about 161/67, pulse is 70, temperature is 36.7, saturations are 95 on room air. General: He is more alert. He is somewhat slow with answering questions. Skin: Pale. Heart: Regular rate and rhythm. Lungs: Have diminished breath sounds on bases. Abdomen: Soft. Lower Extremities: No edema. Neurological : More alert. Slow speech. Tremors LABORATORY DATA: Lab today shows his hemoglobin has dropped to 9.1 from 9.7 yesterday, white blood cell count 6.0, platelets are 225. Sodium is 144, potassium 3.8, creatinine is 1.8, GFR is improved up to 36. Yesterday, we did do blood gases, which were acceptable with pH on room air 7.39, PCO2 of 33, PO2 of 75, bicarb 20, saturations are 95 on room air. ProBNP today is up to 2760. IMPRESSION: 1. Complicated urinary tract infection. 2. Delirium, which is improving. 3. Anemia secondary to blood loss, which is stabilized. 4. Chronic kidney disease. 5. Weakness. 6. Cognitive dysfunction. 7. Hypertension. PLAN: We will reduce his IV fluid rate. We will start him on amlodipine for blood pressure control, do not want to use an YOSEF inhibitor due to his compromised renal function already. He had been getting some p.r.n. Lasix dosing. We may need to add a small diuretic as well. We will check a chest x- ray today on the patient to see about fluid to make sure he is not having fluid overload in his lungs. He does have p.r.n. stool medications. We will have Physical Therapy work with the patient for strengthening. We are still awaiting a pending PSA test that has been done. GM01/22/2019 08:20:56 MODL: 01/22/2019 09:14:01 /[id number] MTDSil
--- NOTE | 2019-01-22 10:00 | CR ---
[id number] RAD/RAD Chest PA or AP 1V EXAM: RAD Chest PA or AP 1V INDICATION: CONGESTIVE HEART FAILURE. COMPARISON: None. DISCUSSION: Left chest wall cardiac conduction device. Cardiomediastinal silhouette is normal in size and contour. No infiltrate, effusion, pneumothorax, or edema. Pulmonary hyperinflation. IMPRESSION: No acute cardiopulmonary abnormality. Kunal Michael DO 01/22/19 0958 Thank you for allowing us to participate in the care of your patient.
[2019-01-22] MEDS: Ciprofloxacin in D5W 200 MG in Premix Bag 1 BAG IV SCH ×2 (11:22)
[2019-01-22] MEDS: Simvastatin 10 MG Tab PO SCH (19:13)
[2019-01-22] MEDS: Citalopram 20 MG Tab PO SCH (19:13)
[2019-01-22] MEDS: Finasteride 5 MG Tab PO SCH (19:13)
[2019-01-23] MEDS: Ciprofloxacin in D5W 200 MG in Premix Bag 1 BAG IV SCH ×2 (04:27)
[2019-01-23] MEDS: Sodium Chloride 0.9% 1,000 ML IV SCH (06:06)
[2019-01-23] MEDS: Omeprazole 20 MG Cap.CR PO SCH ×2 (06:07→18:39)
[2019-01-23 07:09] LABS: ANION GAP 14.8 mmol/L (10-20)
[2019-01-23] MEDS: Isosorbide Mononitrate 30 MG Tab.ER PO SCH (08:04)
[2019-01-23] MEDS: Acetaminophen 325 MG Tab PO PRN (08:04)
[2019-01-23] MEDS: BICALUTAMIDE 50 MG PO SCH (08:04)
[2019-01-23] MEDS: Fluticasone Propionate Nasal Spray 16 GM Bottle ** OWN MED NASBOTH SCH ×2 (08:04→20:28)
[2019-01-23] MEDS: Magnesium Oxide 400 MG Tab PO SCH ×3 (08:04→20:28)
[2019-01-23] MEDS: Sodium Chloride 0.65% Nasal Spray 45 ML Bottle NAS SCH ×2 (08:05→20:29)
[2019-01-23] MEDS: levETIRAcetam 500 MG Tab PO SCH ×2 (08:05→20:27)
[2019-01-23] MEDS: amLODIPine 2.5 MG Tab PO SCH (08:05)
[2019-01-23] MEDS: Gabapentin 300 MG Cap PO SCH ×2 (08:05→20:31)
[2019-01-23] MEDS: Levothyroxine 112 MCG Tab PO SCH (08:05)
--- NOTE | 2019-01-23 09:00 | PN ---
Progress Note for ERAN RODRIGUEZ Date: 01/23/2019 Room #: VM.217 SUBJECTIVE: Subjectively, the patient is an 88-year-old patient. This is his 5th hospital day, he is more alert today and not restless. He has been weak. To note, physical therapy has not worked with him yet as he has been sleeping or fatigued at the time they have come to check. His urine is getting more yellow in coloration. Daughter, Tiffany is present. Yesterday, he had a repeat chest x- ray which looked stable with no increased fluid. His urine today is getting more clear colored. PSA test did come back and within normal range. To note, urine culture does have 1 item that has sensitivities, the other strep species is still pending yet. OBJECTIVE: Vital Signs: His temperature is 36.6, blood pressure is 154/77, pulse is 92, and saturations are 95%. General: Objectively; he is more alert, clear colored. Skin: His skin is pale. Heart: Regular rate and rhythm. Lungs: Clear to auscultation. Abdomen: Soft. : Urine is yellow in coloration. LABORATORY DATA: Lab today shows his hemoglobin has dropped just slightly at 8.9, it was 9.1 yesterday. Sodium is 142, potassium is 3.8, creatinine is stable at 1.8, and GFR is 36. IMPRESSION: 1. Complicated urinary tract infection, improving. 2. Delirium, much improved. 3. Hypertension. 4. Anemia secondary to blood loss. 5. Weakness. PLAN: The patient will be seen by Physical therapy today. To note, Cigarette Vendor have been visiting with family and the intent would be he would go on to swing bed to get stronger before going back to [place] with help and possibly hospice services. We will saline lock his IV fluids today once current bag is done. We will switch his Cipro from IV form to an oral form. To note because it is complicated with a suprapubic indwelling catheter, I do anticipate him to be on antibiotics for at least another week and we are still awaiting final urine cultures. GM01/23/2019 08:25:30 MODL: 01/23/2019 08:44:37 /[id number]
[2019-01-23] MEDS: Citalopram 20 MG Tab PO SCH (20:29)
[2019-01-23] MEDS: Simvastatin 10 MG Tab PO SCH (20:30)
[2019-01-23] MEDS: Finasteride 5 MG Tab PO SCH (20:30)
[2019-01-24 05:40] VITALS: BP 156/86
[2019-01-24] MEDS: Omeprazole 20 MG Cap.CR PO SCH (06:26)
[2019-01-24] MEDS: Levothyroxine 112 MCG Tab PO SCH ×2 (06:26→08:36)
[2019-01-24] MEDS ORDERED: Ciprofloxacin 500 MG Tab PO SCH (08:00)
[2019-01-24] MEDS ORDERED: Ferrous Sulfate 325 MG Tab PO SCH (08:10)
[2019-01-24] MEDS: Fluticasone Propionate Nasal Spray 16 GM Bottle ** OWN MED NASBOTH SCH (08:32)
[2019-01-24] MEDS: levETIRAcetam 500 MG Tab PO SCH (08:33)
[2019-01-24] MEDS: BICALUTAMIDE 50 MG PO SCH (08:33)
[2019-01-24] MEDS: Gabapentin 300 MG Cap PO SCH (08:33)
[2019-01-24] MEDS: Sodium Chloride 0.65% Nasal Spray 45 ML Bottle NAS SCH (08:33)
[2019-01-24] MEDS: Magnesium Oxide 400 MG Tab PO SCH (08:33)
[2019-01-24] MEDS: Isosorbide Mononitrate 30 MG Tab.ER PO SCH (08:34)
[2019-01-24] MEDS: amLODIPine 2.5 MG Tab PO SCH (08:34)
--- NOTE | 2019-01-24 10:07 | PN ---
Progress Note for ERAN RODRIGUEZ Date: 01/24/2019 Room #: VM.217 SUBJECTIVE: This is the patient's 6th hospital day. He has been in the acute care for complicated urinary tract infection with confusion. He has gotten much better, however, last evening he did have another episode of confusion, which did require some Seroquel usage. He was seen by Physical Therapy yesterday and they did find that he was not at his baseline and weak and will benefit by therapy. This morning, the patient is still fairly somnolent. He has not had his morning medicines yet. To note, when the patient had come in to be admitted, he had been on an iron pill, but he has not been getting one while he has been on an acute care. The patient's bowels did work yesterday. OBJECTIVE: Vital Signs: The patient's weight is 84.8 kg, which is down 1.2 kg from yesterday, but up from admission. His blood pressure is 156/86 (but not had morning medications yet), pulse is 86, temperature is 36.6, respiratory rate is 18, sats are 96%. General: The patient is sleepy but does wake up, recognize who I am. Heart: Regular rate. Lungs: Clear to auscultation. Abdomen: Soft. Genitourinary: Urine is yellow. LABORATORY DATA: Lab today shows his hemoglobin is stable at 8.8. His urine culture is showing the Stenotrophomonas as well as a Streptococcus species and an Enterococcus species. IMPRESSION: 1. Complicated UTI with;. 2. Delirium, which is improved with;. 3. Anemia secondary to blood loss. 4. Hypertension. 5. Parkinson's. 6. Weakness. PLAN: We will place the patient on swing bed today. We will resume his oral iron pills. We will continue the oral Cipro and Pharmacy did not change the dosing of that. I do anticipate he will be on it for 10 days. Postal Service Mail Processor met with the patient and once he has gotten stable with transfers and his strength to be able to go back to assisted living, and eventually family may be thinking of hospice but not immediately right now. GM01/24/2019 08:20:11 MODL: 01/24/2019 09:15:51 /[id number]
--- NOTE | 2019-01-24 10:27 | DISCH ---
DATE OF TRANSFER: 01/24/2019. PRIMARY DIAGNOSES: 1. Complicated urinary tract infection. 2. Delirium. 3. Anemia secondary to blood loss from genitourinary bleeding. 4. Metastatic prostate cancer. 5. Hypertension. 6. Parkinson's. 7. Weakness. 8. Anxiety disorder. 9. Urinary retention with suprapublc catheter. 10. CKD stage 4. 11. Hypomagnesemia. 12. Acute sinusitis. 13. Coronary artery disease. 14. Hypercholesterolemia. Procedures: Blood transfusion. SUMMARY OF ADMIT HISTORY AND PHYSICAL: The patient is an 88-year-old male who presented with increased weakness, not being able to maneuver around. The patient does have a known suprapubic catheter and had been having increased bleeding. He does have metastatic prostate cancer and was felt to be ill. PHYSICAL EXAMINATION: Vital Signs: His blood pressure is 138/75, but that had gone up to 190/71; temperature was 98.7. Heart: Regular rate. Lungs: Clear to auscultation. Genitourinary: Catheter had bright red blood in it. IMAGING DATA: He had a CT scan done, which shows suprapubic catheter in place with irregular thickening of the bladder wall, could be cystitis. Otherwise, adrenal adenoma, which is old. Chest x-ray, no infiltrates. LABORATORY DATA: Lab work showed white blood cell count 11.2, hemoglobin 8.8, platelets are 224. Sodium 135, potassium 4.2, creatinine 2.1, BUN 18, glucose 143, lactic acid 1.2, albumin 3, CRP 3.6, AST 18, ALT 10, alkaline phosphatase 61, total bilirubin 0.7. UA showed positive nitrites, greater than 100 rbc's, trace leukocytes. SUMMARY OF HOSPITAL COURSE: The patient was admitted to acute care. He was placed on IV Cipro. He was given IV fluids and the patient was not placed on any blood thinners due to problems with genitourinary bleeding causing anemia. Blood cultures were negative. Urine cultures did show stenomaltophonas, as streptococcal species and an enterofaecalis species. The patient did have his hemoglobin that dropped down to 7.5 on 01/20/2019, and with increased confusion, it was felt that he would benefit by a blood transfusion, so he was given a unit of packed RBCs. Hemoglobin going up to 9.7, then had drifted down by 01/24/2019 to 7.8. He had not been on his oral iron pills. The patient had problems with much confusion, agitation. He did have a head CT done that did not show any new neuro changes. Acute Sinusitis was noted adn felt to be covered with his cipro antibiotics. He became very lethargic from Ativan that had been given to him, so he was then placed on Seroquel, which did seem to help calm him down some, but then made him quite sedate, so it was just used as a p.r.n. medication. The patient had a creatinine that improved from 2.2 down to 1.8 after hydration. To note, repeat chest x-ray had been done because of concerns with fluid after transfusion. ABG's were done and normal on room air.His proBNP had gone from 1117 on 01/19/2019, up to 2760. He was given some Lasix p.r.n. for drying out his lungs after his transfusion.. To note, therapies worked with him and he was noted to be weak. He was felt to be in need of swing bed for strengthening. Guide Visitor had met with family and had considered that the patient should be appropriate for hospice, but yet they had wanted to try to maximize his current strength right now before returning to assisted living. MEDICATIONS: At the time of transfer will be acetaminophen 975 q.i.d. p.r.n., amlodipine 2.5 mg 1 pill daily (new medicine), casodex 50 mg 1 pill daily, Cipro 500 mg 1 pill daily for 7 more days, Celexa 20 mg at bedtime, sodium 100 mg 1 p.o. b.i.d. p.r.n., ferrous sulfate 325 one pill daily, Proscar 5 mg 1 pill every evening, Flonase 1 puff b.i.d., gabapentin 300 mg b.i.d., isosorbide mononitrate 30 mg daily, Keppra 250 mg 1 pill twice a day, levothyroxine 56 mcg 1 pill daily, milk of magnesia 30 mL daily p.r.n., magnesium oxide 400 mg 1 pill 3 times a day, omeprazole 20 mg 1 pill twice a day, Seroquel 12.5 mg 1 p.o. b.i.d. p.r.n., simvastatin 10 mg 1 pill at bedtime, and saline nose spray b.i.d. p.r.n. Exam day of transfer, pt was sleeping, but did awaken Pulm; CTA CV regular rate and rhythm. Abd; Soft nontender, suprapubic cath present Ext slender no edema. Neurol : Forgetful, speech is slow.Tremor At the time of transfer, the patient's code status is do not resuscitate/do not intubate. The patient is expected to continue to decline due to his metastatic prostate cancer as well as advanced cognitive dysfunction. With his chronic kidney disease, we do need to be careful about dosing medications and wishes for family to attempt to get back to assisted living with then home health and/or hospice services. Moderate complexiety for patient. Over 30 minutes of time was spent in disharge to swing bed. GM01/24/2019 08:26:29 MODL: 01/24/2019 10:18:40 /[id number] MTDD
== END 2019-01-24 08:57 | disposition swing bed (61) | DRG 690 ==
LOC: VM.ED 07:40 → VM.MS 09:14
PROVIDERS: ADMIT Internal Medicine; ATTEND Family Medicine
PROC: 30233N1 Transfusion of Nonautologous Red Blood Cells into Peripheral Vein, Percutaneous Approach (ICD-10-PCS; principal; 2019-01-20)
DX: N39.0 Urinary tract infection, site not specified (principal); I50.32 Chronic diastolic (congestive) heart failure; I13.0 Hypertensive heart and chronic kidney disease with heart failure and stage 1 through stage 4 chronic kidney disease, or unspecified chronic kidney disease; E44.0 Moderate protein-calorie malnutrition; D62 Acute posthemorrhagic anemia; N18.4 Chronic kidney disease, stage 4 (severe); R65.10 Systemic inflammatory response syndrome (SIRS) of non-infectious origin without acute organ dysfunction; K92.2 Gastrointestinal hemorrhage, unspecified; C79.51 Secondary malignant neoplasm of bone; Z66 Do not resuscitate; E78.5 Hyperlipidemia, unspecified; E03.9 Hypothyroidism, unspecified; C61 Malignant neoplasm of prostate; I25.10 Atherosclerotic heart disease of native coronary artery without angina pectoris; G20 Parkinson's disease; F41.9 Anxiety disorder, unspecified; Z87.891 Personal history of nicotine dependence; Z88.5 Allergy status to narcotic agent; F32.9 Major depressive disorder, single episode, unspecified; R31.9 Hematuria, unspecified; Z85.46 Personal history of malignant neoplasm of prostate; I25.2 Old myocardial infarction; E83.42 Hypomagnesemia; G31.84 Mild cognitive impairment of uncertain or unknown etiology; J01.90 Acute sinusitis, unspecified; R09.89 Other specified symptoms and signs involving the circulatory and respiratory systems; K59.00 Constipation, unspecified; R33.9 Retention of urine, unspecified; E78.00 Pure hypercholesterolemia, unspecified; Z86.010 Personal history of colon polyps; Z95.0 Presence of cardiac pacemaker; Z90.49 Acquired absence of other specified parts of digestive tract; Z98.49 Cataract extraction status, unspecified eye; Z88.8 Allergy status to other drugs, medicaments and biological substances
CPT/HCPCS: 36415; 36430; 36600; 70450; 71045; 74176; 80048; 80053; 81001; 82803; 83605; 83735; 83880; 84153; 84154; 84443; 85018; 85025; 86140; 86850; 86900; 86901; 86920; 86922; 87040; 87086; 87088; 87186; 93005; 96374; 97161-GP; 99285-25; A9270-GY; J0696; J0744; J1940; J7030; P9016

== ENCOUNTER 2019-01-24 08:57 | Inpatient (IN) | payer MEDICARE, OTHER ==
[2019-01-24] MEDS ORDERED: QUEtiapine 25 MG Tab PO PRN (09:30)
[2019-01-24] MEDS: Magnesium Oxide 400 MG Tab PO SCH ×2 (12:27→20:20)
[2019-01-24] MEDS: Omeprazole 20 MG Cap.CR PO SCH (17:09)
[2019-01-24] MEDS: Gabapentin 300 MG Cap PO SCH (20:19)
[2019-01-24] MEDS: Citalopram 20 MG Tab PO SCH (20:20)
[2019-01-24] MEDS: Simvastatin 10 MG Tab PO SCH (20:20)
[2019-01-24] MEDS: Finasteride 5 MG Tab PO SCH (20:21)
[2019-01-24] MEDS: Fluticasone Propionate Nasal Spray 16 GM Bottle NASBOTH SCH (20:21)
[2019-01-24] MEDS: levETIRAcetam 500 MG Tab PO SCH (20:21)
[2019-01-25] MEDS: Omeprazole 20 MG Cap.CR PO SCH ×2 (06:02→17:36)
[2019-01-25] MEDS: Levothyroxine 112 MCG Tab PO SCH (06:02)
[2019-01-25] MEDS: Isosorbide Mononitrate 60 MG Tab.ER PO SCH (11:25)
[2019-01-25] MEDS: Magnesium Oxide 400 MG Tab PO SCH ×3 (11:25→20:04)
[2019-01-25] MEDS: Gabapentin 300 MG Cap PO SCH ×2 (11:26→20:04)
[2019-01-25] MEDS: Ciprofloxacin 500 MG Tab PO SCH (11:26)
[2019-01-25] MEDS: levETIRAcetam 500 MG Tab PO SCH ×2 (11:26→20:04)
[2019-01-25] MEDS: Ferrous Sulfate 325 MG Tab PO SCH (11:26)
[2019-01-25] MEDS: Cholecalciferol (Vitamin D3) 1,000 Unit Tab PO SCH (11:27)
[2019-01-25] MEDS: amLODIPine 2.5 MG Tab PO SCH (11:27)
[2019-01-25] MEDS: Fluticasone Propionate Nasal Spray 16 GM Bottle NASBOTH SCH ×2 (11:28→20:05)
[2019-01-25] MEDS: BICALUTAMIDE 50 MG PO SCH (11:29)
[2019-01-25] MEDS: Acetaminophen 325 MG Tab PO PRN (20:02)
[2019-01-25] MEDS: Finasteride 5 MG Tab PO SCH (20:04)
[2019-01-25] MEDS: Citalopram 20 MG Tab PO SCH (20:04)
[2019-01-25] MEDS: Simvastatin 10 MG Tab PO SCH (20:04)
[2019-01-26] MEDS: Levothyroxine 112 MCG Tab PO SCH (06:08)
[2019-01-26] MEDS: Omeprazole 20 MG Cap.CR PO SCH ×2 (06:08→17:38)
[2019-01-26] MEDS: Cholecalciferol (Vitamin D3) 1,000 Unit Tab PO SCH (08:06)
[2019-01-26] MEDS: Magnesium Oxide 400 MG Tab PO SCH ×3 (08:07→20:05)
[2019-01-26] MEDS: levETIRAcetam 500 MG Tab PO SCH ×2 (08:07→20:05)
[2019-01-26] MEDS: Isosorbide Mononitrate 60 MG Tab.ER PO SCH (08:07)
[2019-01-26] MEDS: Ciprofloxacin 500 MG Tab PO SCH (08:07)
[2019-01-26] MEDS: Gabapentin 300 MG Cap PO SCH ×2 (08:07→20:05)
[2019-01-26] MEDS: amLODIPine 2.5 MG Tab PO SCH (08:08)
[2019-01-26] MEDS: Ferrous Sulfate 325 MG Tab PO SCH (08:08)
[2019-01-26] MEDS: Fluticasone Propionate Nasal Spray 16 GM Bottle NASBOTH SCH ×2 (08:08→20:08)
[2019-01-26] MEDS: BICALUTAMIDE 50 MG PO SCH (08:09)
[2019-01-26] MEDS: Acetaminophen 325 MG Tab PO PRN ×2 (08:12→20:05)
[2019-01-26] MEDS: Citalopram 20 MG Tab PO SCH (20:04)
[2019-01-26] MEDS: Finasteride 5 MG Tab PO SCH (20:04)
[2019-01-26] MEDS: Simvastatin 10 MG Tab PO SCH (20:05)
[2019-01-27] MEDS: Omeprazole 20 MG Cap.CR PO SCH ×2 (06:32→16:56)
[2019-01-27] MEDS: Levothyroxine 112 MCG Tab PO SCH (06:32)
[2019-01-27 07:19] LABS: ANION GAP 12.7 mmol/L (10-20)
[2019-01-27] MEDS: amLODIPine 2.5 MG Tab PO SCH (07:51)
[2019-01-27] MEDS: Ciprofloxacin 500 MG Tab PO SCH (07:51)
[2019-01-27] MEDS: Magnesium Oxide 400 MG Tab PO SCH ×3 (07:51→19:11)
[2019-01-27] MEDS: levETIRAcetam 500 MG Tab PO SCH ×2 (07:51→19:11)
[2019-01-27] MEDS: Ferrous Sulfate 325 MG Tab PO SCH (07:51)
[2019-01-27] MEDS: Cholecalciferol (Vitamin D3) 1,000 Unit Tab PO SCH (07:52)
[2019-01-27] MEDS: Fluticasone Propionate Nasal Spray 16 GM Bottle NASBOTH SCH ×2 (07:52→19:12)
[2019-01-27] MEDS: Isosorbide Mononitrate 60 MG Tab.ER PO SCH (07:52)
[2019-01-27] MEDS: Gabapentin 300 MG Cap PO SCH ×2 (07:52→19:11)
[2019-01-27] MEDS: BICALUTAMIDE 50 MG PO SCH (07:53)
--- NOTE | 2019-01-27 09:21 | PN ---
Progress Note for ERAN RODRIGUEZ Date: 01/27/2019 Room #: VM.217 SUBJECTIVE: The patient is noted to be weak, but is feeling stronger. He has not been confused. No family is present with him right now. OBJECTIVE: Vital Signs: His temperature is 37.2, pulse is 72, blood pressure is 138/60, respiratory rate is 18, and saturations are 99%. General: Looking much more alert, sitting up in the chair. He has a smile on his face. Heart: Regular rate. Lungs: Diminished breath sounds. Abdomen: Soft. Genitourinary: Urine is light yellow in color. No blood is present. LABORATORY DATA: His white blood cell count was 6.2 and hemoglobin was 9.0. Sodium is 142, potassium is 4.7, creatinine is 1.9 which is stable, glucose is 99, and calcium is 9.8. LFTs are normal. Albumin is low at 2.8. Total cholesterol was 119, LDL was 30, HDL was 67, and triglycerides were 111. TSH of 2.4. IMPRESSION: 1. Complicated urinary tract infection. 2. Anemia secondary to blood loss from source. 3. Metastatic prostate cancer. 4. Chronic indwelling Mederos catheter. 5. Hypertension, improved. 6. Hypercholesterolemia. 7. Hypothyroidism. PLAN: We will reduce the patient's cholesterol pill to just Sunday, Sunday, and Sunday. Continue iron pills. He will continue with physical therapy for strengthening, and hopefully intent would be to get him back to assisted living possibly later this week. GM01/27/2019 08:33:22 MODL: 01/27/2019 09:00:29 /[id number]
[2019-01-27] MEDS: Simvastatin 10 MG Tab PO SCH (19:11)
[2019-01-27] MEDS: Finasteride 5 MG Tab PO SCH (19:11)
[2019-01-27] MEDS: Citalopram 20 MG Tab PO SCH (19:11)
[2019-01-27] MEDS: Acetaminophen 325 MG Tab PO PRN (19:14)
[2019-01-28] MEDS: Omeprazole 20 MG Cap.CR PO SCH ×2 (06:05→16:39)
[2019-01-28] MEDS: Levothyroxine 112 MCG Tab PO SCH (06:06)
[2019-01-28] MEDS: Acetaminophen 325 MG Tab PO PRN ×3 (06:30→19:24)
[2019-01-28] MEDS: Magnesium Oxide 400 MG Tab PO SCH ×3 (07:53→19:23)
[2019-01-28] MEDS: levETIRAcetam 500 MG Tab PO SCH ×2 (07:53→19:22)
[2019-01-28] MEDS: Isosorbide Mononitrate 60 MG Tab.ER PO SCH (07:53)
[2019-01-28] MEDS: Cholecalciferol (Vitamin D3) 1,000 Unit Tab PO SCH (07:53)
[2019-01-28] MEDS: amLODIPine 2.5 MG Tab PO SCH (07:53)
[2019-01-28] MEDS: Ciprofloxacin 500 MG Tab PO SCH (07:53)
[2019-01-28] MEDS: Gabapentin 300 MG Cap PO SCH ×2 (07:54→19:23)
[2019-01-28] MEDS: Ferrous Sulfate 325 MG Tab PO SCH (07:54)
[2019-01-28] MEDS: Fluticasone Propionate Nasal Spray 16 GM Bottle NASBOTH SCH ×2 (07:54→19:22)
[2019-01-28] MEDS: BICALUTAMIDE 50 MG PO SCH (07:54)
[2019-01-28] MEDS: Finasteride 5 MG Tab PO SCH (19:23)
[2019-01-28] MEDS: Citalopram 20 MG Tab PO SCH (19:23)
[2019-01-29] MEDS: Levothyroxine 112 MCG Tab PO SCH (06:45)
[2019-01-29] MEDS: Acetaminophen 325 MG Tab PO PRN ×2 (06:46→19:18)
[2019-01-29] MEDS: Omeprazole 20 MG Cap.CR PO SCH ×2 (06:46→17:26)
[2019-01-29] MEDS: amLODIPine 2.5 MG Tab PO SCH (09:32)
[2019-01-29] MEDS: levETIRAcetam 500 MG Tab PO SCH ×2 (09:33→19:19)
[2019-01-29] MEDS: Isosorbide Mononitrate 60 MG Tab.ER PO SCH (09:33)
[2019-01-29] MEDS: Cholecalciferol (Vitamin D3) 1,000 Unit Tab PO SCH (09:34)
[2019-01-29] MEDS: Ciprofloxacin 500 MG Tab PO SCH (09:34)
[2019-01-29] MEDS: BICALUTAMIDE 50 MG PO SCH (09:35)
[2019-01-29] MEDS: Magnesium Oxide 400 MG Tab PO SCH ×3 (09:35→19:19)
[2019-01-29] MEDS: Ferrous Sulfate 325 MG Tab PO SCH (09:35)
[2019-01-29] MEDS: Gabapentin 300 MG Cap PO SCH ×2 (09:35→19:19)
[2019-01-29] MEDS: Fluticasone Propionate Nasal Spray 16 GM Bottle NASBOTH SCH ×2 (09:36→19:18)
[2019-01-29] MEDS: Simvastatin 10 MG Tab PO SCH (19:19)
[2019-01-29] MEDS: Citalopram 20 MG Tab PO SCH (19:19)
[2019-01-29] MEDS: Finasteride 5 MG Tab PO SCH (19:19)
[2019-01-30] MEDS: Acetaminophen 325 MG Tab PO PRN ×5 (01:29→19:28)
[2019-01-30] MEDS: Levothyroxine 112 MCG Tab PO SCH (06:44)
[2019-01-30] MEDS: Omeprazole 20 MG Cap.CR PO SCH ×2 (06:44→17:35)
[2019-01-30 06:59] LABS: ANION GAP 10.6 mmol/L (10-20)
[2019-01-30] MEDS: Cholecalciferol (Vitamin D3) 1,000 Unit Tab PO SCH (08:03)
[2019-01-30] MEDS: BICALUTAMIDE 50 MG PO SCH (08:04)
[2019-01-30] MEDS: levETIRAcetam 500 MG Tab PO SCH ×2 (08:04→19:28)
[2019-01-30] MEDS: Magnesium Oxide 400 MG Tab PO SCH ×3 (08:04→19:29)
[2019-01-30] MEDS: Isosorbide Mononitrate 60 MG Tab.ER PO SCH (08:04)
[2019-01-30] MEDS: Ciprofloxacin 500 MG Tab PO SCH (08:04)
[2019-01-30] MEDS: amLODIPine 2.5 MG Tab PO SCH (08:04)
[2019-01-30] MEDS: Gabapentin 300 MG Cap PO SCH ×2 (08:05→19:29)
[2019-01-30] MEDS: Fluticasone Propionate Nasal Spray 16 GM Bottle NASBOTH SCH ×2 (08:05→19:29)
[2019-01-30] MEDS: Ferrous Sulfate 325 MG Tab PO SCH (08:05)
--- NOTE | 2019-01-30 11:10 | PN ---
Progress Note for ERAN RODRIGUEZ Date: 01/30/2019 Room #: VM.217 SUBJECTIVE: The patient is progressing with therapies, getting a little bit stronger. It is noted although that he did have more bloody discharge in his urine. He did have some trauma from his catheter the other day with being taped a little tight, which is causing some bladder spasms, which improved after the catheter was removed. His daughter is present and is quite concerned that he is not at his baseline for strengthening and physical therapy has been working with him. OBJECTIVE: Vital Signs: His weight is 81.67, which is stable. Blood pressure is 136/66, respiratory rate is 18, sats 95%. GENERAL: He is much more alert, happy looking. Heart: Regular rate. Lungs: Clear to auscultation. Urine is noted to be bloody in nature. LABORATORY DATA: Previous labs in computer, his hemoglobin was 8.8, white blood cell count 6.0. Sodium 140, potassium 4.6, creatinine 1.9. IMPRESSION: 1. Complicated urinary tract infection. 2. SIRS. 3. Blood loss secondary to bleeding. 4. Dementia. PLAN: The patient will continue with therapies. His daughter is quite concerned about physical therapy, wanting to discharge patient tomorrow and she feels he is not at his baseline, so she is going to be talking to nursing home social worker about postponing his discharge until he is more stronger. GM01/30/2019 10:03:18 MODL: 01/30/2019 10:59:01 /[id number] ELZA
[2019-01-30] MEDS: Finasteride 5 MG Tab PO SCH (19:29)
[2019-01-30] MEDS: Citalopram 20 MG Tab PO SCH (19:29)
[2019-01-31] MEDS: Levothyroxine 112 MCG Tab PO SCH (06:02)
[2019-01-31] MEDS: Omeprazole 20 MG Cap.CR PO SCH ×2 (06:03→16:11)
[2019-01-31] MEDS: Cholecalciferol (Vitamin D3) 1,000 Unit Tab PO SCH (07:50)
[2019-01-31] MEDS: Ferrous Sulfate 325 MG Tab PO SCH (07:50)
[2019-01-31] MEDS: Magnesium Oxide 400 MG Tab PO SCH ×3 (07:51→19:29)
[2019-01-31] MEDS: Gabapentin 300 MG Cap PO SCH ×2 (07:51→19:29)
[2019-01-31] MEDS: Ciprofloxacin 500 MG Tab PO SCH (07:51)
[2019-01-31] MEDS: amLODIPine 2.5 MG Tab PO SCH (07:51)
[2019-01-31] MEDS: levETIRAcetam 500 MG Tab PO SCH ×2 (07:51→19:29)
[2019-01-31] MEDS: Isosorbide Mononitrate 60 MG Tab.ER PO SCH (07:51)
[2019-01-31] MEDS: Fluticasone Propionate Nasal Spray 16 GM Bottle NASBOTH SCH ×2 (07:53→19:30)
[2019-01-31] MEDS: BICALUTAMIDE 50 MG PO SCH (07:53)
[2019-01-31] MEDS: Citalopram 20 MG Tab PO SCH (19:30)
[2019-01-31] MEDS: Finasteride 5 MG Tab PO SCH (19:30)
[2019-01-31] MEDS: Simvastatin 10 MG Tab PO SCH (19:30)
[2019-01-31] MEDS: Acetaminophen 325 MG Tab PO PRN (19:35)
[2019-02-01] MEDS: Omeprazole 20 MG Cap.CR PO SCH ×2 (06:08→17:02)
[2019-02-01] MEDS: Levothyroxine 112 MCG Tab PO SCH (06:08)
[2019-02-01] MEDS: amLODIPine 2.5 MG Tab PO SCH (07:34)
[2019-02-01] MEDS: levETIRAcetam 500 MG Tab PO SCH ×2 (07:34→19:23)
[2019-02-01] MEDS: Gabapentin 300 MG Cap PO SCH ×2 (07:34→19:23)
[2019-02-01] MEDS: Isosorbide Mononitrate 60 MG Tab.ER PO SCH (07:34)
[2019-02-01] MEDS: Cholecalciferol (Vitamin D3) 1,000 Unit Tab PO SCH (07:34)
[2019-02-01] MEDS: Magnesium Oxide 400 MG Tab PO SCH ×3 (07:34→19:23)
[2019-02-01] MEDS: Ciprofloxacin 500 MG Tab PO SCH (07:34)
[2019-02-01] MEDS: Ferrous Sulfate 325 MG Tab PO SCH (07:35)
[2019-02-01] MEDS: Fluticasone Propionate Nasal Spray 16 GM Bottle NASBOTH SCH ×2 (07:35→19:45)
[2019-02-01] MEDS: BICALUTAMIDE 50 MG PO SCH (07:35)
[2019-02-01] MEDS: Docusate Sodium 100 MG Cap PO PRN ×2 (11:15→19:23)
[2019-02-01] MEDS: Citalopram 20 MG Tab PO SCH (19:22)
[2019-02-01] MEDS: Acetaminophen 325 MG Tab PO PRN (19:22)
[2019-02-01] MEDS: Finasteride 5 MG Tab PO SCH (19:23)
[2019-02-02] MEDS: Acetaminophen 325 MG Tab PO PRN ×4 (01:53→19:31)
[2019-02-02] MEDS: Levothyroxine 112 MCG Tab PO SCH (06:35)
[2019-02-02] MEDS: Omeprazole 20 MG Cap.CR PO SCH ×2 (06:36→16:40)
[2019-02-02] MEDS: levETIRAcetam 500 MG Tab PO SCH ×2 (07:40→19:31)
[2019-02-02] MEDS: Gabapentin 300 MG Cap PO SCH ×2 (07:40→19:31)
[2019-02-02] MEDS: Isosorbide Mononitrate 60 MG Tab.ER PO SCH (07:40)
[2019-02-02] MEDS: Cholecalciferol (Vitamin D3) 1,000 Unit Tab PO SCH (07:40)
[2019-02-02] MEDS: Ferrous Sulfate 325 MG Tab PO SCH (07:40)
[2019-02-02] MEDS: BICALUTAMIDE 50 MG PO SCH (07:41)
[2019-02-02] MEDS: amLODIPine 2.5 MG Tab PO SCH (07:41)
[2019-02-02] MEDS: Magnesium Oxide 400 MG Tab PO SCH ×3 (07:41→19:30)
[2019-02-02] MEDS: Fluticasone Propionate Nasal Spray 16 GM Bottle NASBOTH SCH ×2 (07:42→19:33)
[2019-02-02] MEDS: Docusate Sodium 100 MG Cap PO PRN ×2 (11:02→19:30)
[2019-02-02] MEDS: Citalopram 20 MG Tab PO SCH (19:30)
[2019-02-02] MEDS: Finasteride 5 MG Tab PO SCH (19:31)
[2019-02-03] MEDS: Acetaminophen 325 MG Tab PO PRN ×3 (01:37→21:29)
[2019-02-03] MEDS: Omeprazole 20 MG Cap.CR PO SCH ×2 (06:08→17:42)
[2019-02-03] MEDS: Levothyroxine 112 MCG Tab PO SCH (06:08)
[2019-02-03] MEDS: Ferrous Sulfate 325 MG Tab PO SCH (08:04)
[2019-02-03] MEDS: Magnesium Oxide 400 MG Tab PO SCH ×3 (08:04→21:30)
[2019-02-03] MEDS: levETIRAcetam 500 MG Tab PO SCH ×2 (08:04→21:30)
[2019-02-03] MEDS: Gabapentin 300 MG Cap PO SCH ×2 (08:04→21:30)
[2019-02-03] MEDS: Cholecalciferol (Vitamin D3) 1,000 Unit Tab PO SCH (08:04)
[2019-02-03] MEDS: Fluticasone Propionate Nasal Spray 16 GM Bottle NASBOTH SCH ×2 (08:05→21:29)
[2019-02-03] MEDS: BICALUTAMIDE 50 MG PO SCH (08:05)
[2019-02-03] MEDS: Isosorbide Mononitrate 60 MG Tab.ER PO SCH (08:05)
[2019-02-03] MEDS: amLODIPine 2.5 MG Tab PO SCH (08:07)
--- NOTE | 2019-02-03 09:27 | PCM.SN ---
- Free Text/Narrative Note: urine culture showing Enterococcus faecalis and stenotrophomonas species. One is resistant to levaquin, other is pending. Will add sulfa antibiotics now.Has indwelling mensah catheter.
[2019-02-03] MEDS: Sulfamethoxazole/Trimethoprim 400-80 MG Tab PO SCH ×2 (10:45→21:30)
--- NOTE | 2019-02-03 17:01 | PCM.SN ---
- Free Text/Narrative Note: sensitivities to Enterococcus came back being sensitive to ampicillin, macrobid and vanco. Will add amoxicillin to the bactrim he's already started for the other organisim.
[2019-02-03] MEDS: Citalopram 20 MG Tab PO SCH (21:30)
[2019-02-03] MEDS: Finasteride 5 MG Tab PO SCH (21:30)
[2019-02-03] MEDS: Amoxicillin 500 MG Cap PO SCH (21:30)
[2019-02-03] MEDS: Simvastatin 10 MG Tab PO SCH (21:31)
[2019-02-04] MEDS: Acetaminophen 325 MG Tab PO PRN ×3 (00:48→19:31)
[2019-02-04] MEDS: Omeprazole 20 MG Cap.CR PO SCH ×2 (06:22→19:31)
[2019-02-04] MEDS: Levothyroxine 112 MCG Tab PO SCH (06:22)
[2019-02-04] MEDS: Sulfamethoxazole/Trimethoprim 400-80 MG Tab PO SCH ×2 (09:00→19:31)
[2019-02-04] MEDS: Gabapentin 300 MG Cap PO SCH ×2 (09:00→19:32)
[2019-02-04] MEDS: Ferrous Sulfate 325 MG Tab PO SCH (09:00)
[2019-02-04] MEDS: Magnesium Oxide 400 MG Tab PO SCH ×3 (09:00→19:32)
[2019-02-04] MEDS: levETIRAcetam 500 MG Tab PO SCH ×2 (09:00→19:31)
[2019-02-04] MEDS: Cholecalciferol (Vitamin D3) 1,000 Unit Tab PO SCH (09:01)
[2019-02-04] MEDS: Isosorbide Mononitrate 60 MG Tab.ER PO SCH (09:01)
[2019-02-04] MEDS: Amoxicillin 500 MG Cap PO SCH ×2 (09:01→19:31)
[2019-02-04] MEDS: amLODIPine 2.5 MG Tab PO SCH (09:02)
[2019-02-04] MEDS: Fluticasone Propionate Nasal Spray 16 GM Bottle NASBOTH SCH ×2 (09:03→19:32)
[2019-02-04] MEDS: BICALUTAMIDE 50 MG PO SCH (09:03)
[2019-02-04] MEDS: Finasteride 5 MG Tab PO SCH (19:31)
[2019-02-04] MEDS: Citalopram 20 MG Tab PO SCH (19:32)
[2019-02-05] MEDS: Levothyroxine 112 MCG Tab PO SCH (06:30)
[2019-02-05] MEDS: Omeprazole 20 MG Cap.CR PO SCH ×2 (06:30→17:24)
[2019-02-05] MEDS: Docusate Sodium 100 MG Cap PO PRN (06:30)
[2019-02-05 07:18] LABS: ANION GAP 10.6 mmol/L (10-20)
[2019-02-05] MEDS: Amoxicillin 500 MG Cap PO SCH ×2 (08:56→20:04)
[2019-02-05] MEDS: Sulfamethoxazole/Trimethoprim 400-80 MG Tab PO SCH ×2 (08:56→20:07)
[2019-02-05] MEDS: levETIRAcetam 500 MG Tab PO SCH ×2 (08:57→20:05)
[2019-02-05] MEDS: Magnesium Oxide 400 MG Tab PO SCH ×3 (08:57→20:06)
[2019-02-05] MEDS: Ferrous Sulfate 325 MG Tab PO SCH (08:57)
[2019-02-05] MEDS: Gabapentin 300 MG Cap PO SCH ×2 (08:57→20:07)
[2019-02-05] MEDS: amLODIPine 2.5 MG Tab PO SCH (08:57)
[2019-02-05] MEDS: Cholecalciferol (Vitamin D3) 1,000 Unit Tab PO SCH (08:57)
[2019-02-05] MEDS: Isosorbide Mononitrate 60 MG Tab.ER PO SCH (08:57)
[2019-02-05] MEDS: BICALUTAMIDE 50 MG PO SCH (08:58)
[2019-02-05] MEDS: Fluticasone Propionate Nasal Spray 16 GM Bottle NASBOTH SCH ×2 (08:58→20:05)
[2019-02-05] MEDS: Acetaminophen 325 MG Tab PO PRN ×2 (11:49→20:12)
[2019-02-05] MEDS: Citalopram 20 MG Tab PO SCH (20:05)
[2019-02-05] MEDS: Finasteride 5 MG Tab PO SCH (20:07)
[2019-02-05] MEDS: Simvastatin 10 MG Tab PO SCH (20:08)
[2019-02-06] MEDS: Omeprazole 20 MG Cap.CR PO SCH ×2 (06:31→16:12)
[2019-02-06] MEDS: Levothyroxine 112 MCG Tab PO SCH (06:31)
[2019-02-06] MEDS: Acetaminophen 325 MG Tab PO PRN ×3 (06:32→19:18)
[2019-02-06] MEDS: BICALUTAMIDE 50 MG PO SCH (07:42)
[2019-02-06] MEDS: Magnesium Oxide 400 MG Tab PO SCH ×3 (07:42→19:19)
[2019-02-06] MEDS: levETIRAcetam 500 MG Tab PO SCH ×2 (07:42→19:19)
[2019-02-06] MEDS: Cholecalciferol (Vitamin D3) 1,000 Unit Tab PO SCH (07:42)
[2019-02-06] MEDS: Sulfamethoxazole/Trimethoprim 400-80 MG Tab PO SCH ×2 (07:42→19:18)
[2019-02-06] MEDS: Isosorbide Mononitrate 60 MG Tab.ER PO SCH (07:42)
[2019-02-06] MEDS: Gabapentin 300 MG Cap PO SCH ×2 (07:42→19:19)
[2019-02-06] MEDS: Ferrous Sulfate 325 MG Tab PO SCH (07:42)
[2019-02-06] MEDS: amLODIPine 2.5 MG Tab PO SCH (07:42)
[2019-02-06] MEDS: Docusate Sodium 100 MG Cap PO PRN (07:42)
[2019-02-06] MEDS: Amoxicillin 500 MG Cap PO SCH ×2 (07:42→19:18)
[2019-02-06] MEDS: Fluticasone Propionate Nasal Spray 16 GM Bottle NASBOTH SCH ×2 (07:43→19:17)
[2019-02-06] MEDS: Finasteride 5 MG Tab PO SCH (19:18)
[2019-02-06] MEDS: Citalopram 20 MG Tab PO SCH (19:19)
[2019-02-07] MEDS: Acetaminophen 325 MG Tab PO PRN ×2 (06:13→20:01)
[2019-02-07] MEDS: Omeprazole 20 MG Cap.CR PO SCH ×2 (06:13→16:40)
[2019-02-07] MEDS: Levothyroxine 112 MCG Tab PO SCH (06:14)
[2019-02-07] MEDS: Isosorbide Mononitrate 60 MG Tab.ER PO SCH (07:49)
[2019-02-07] MEDS: Sulfamethoxazole/Trimethoprim 400-80 MG Tab PO SCH ×2 (07:50→20:00)
[2019-02-07] MEDS: Cholecalciferol (Vitamin D3) 1,000 Unit Tab PO SCH (07:50)
[2019-02-07] MEDS: Magnesium Oxide 400 MG Tab PO SCH ×3 (07:50→19:59)
[2019-02-07] MEDS: levETIRAcetam 500 MG Tab PO SCH ×2 (07:50→19:58)
[2019-02-07] MEDS: Gabapentin 300 MG Cap PO SCH ×2 (07:52→20:00)
[2019-02-07] MEDS: Ferrous Sulfate 325 MG Tab PO SCH (07:52)
[2019-02-07] MEDS: amLODIPine 2.5 MG Tab PO SCH (07:52)
[2019-02-07] MEDS: Amoxicillin 500 MG Cap PO SCH ×2 (07:52→19:57)
[2019-02-07] MEDS: Fluticasone Propionate Nasal Spray 16 GM Bottle NASBOTH SCH ×2 (07:53→19:58)
[2019-02-07] MEDS: BICALUTAMIDE 50 MG PO SCH (07:53)
[2019-02-07] MEDS: Citalopram 20 MG Tab PO SCH (19:58)
[2019-02-07] MEDS: Simvastatin 10 MG Tab PO SCH (20:00)
[2019-02-07] MEDS: Finasteride 5 MG Tab PO SCH (20:00)
[2019-02-08] MEDS: Omeprazole 20 MG Cap.CR PO SCH ×2 (06:41→16:50)
[2019-02-08] MEDS: Levothyroxine 112 MCG Tab PO SCH (06:41)
[2019-02-08] MEDS: Acetaminophen 325 MG Tab PO PRN ×2 (06:42→19:21)
[2019-02-08] MEDS: Cholecalciferol (Vitamin D3) 1,000 Unit Tab PO SCH (08:35)
[2019-02-08] MEDS: Ferrous Sulfate 325 MG Tab PO SCH (08:36)
[2019-02-08] MEDS: Gabapentin 300 MG Cap PO SCH ×2 (08:36→19:20)
[2019-02-08] MEDS: Magnesium Oxide 400 MG Tab PO SCH ×3 (08:36→19:20)
[2019-02-08] MEDS: Sulfamethoxazole/Trimethoprim 400-80 MG Tab PO SCH ×2 (08:36→19:22)
[2019-02-08] MEDS: Docusate Sodium 100 MG Cap PO PRN ×2 (08:36→19:22)
[2019-02-08] MEDS: Amoxicillin 500 MG Cap PO SCH ×2 (08:36→19:20)
[2019-02-08] MEDS: Isosorbide Mononitrate 60 MG Tab.ER PO SCH (08:36)
[2019-02-08] MEDS: levETIRAcetam 500 MG Tab PO SCH ×2 (08:37→19:21)
[2019-02-08] MEDS: amLODIPine 2.5 MG Tab PO SCH (08:37)
[2019-02-08] MEDS: BICALUTAMIDE 50 MG PO SCH (08:39)
[2019-02-08] MEDS: Fluticasone Propionate Nasal Spray 16 GM Bottle NASBOTH SCH ×2 (08:39→19:20)
[2019-02-08] MEDS: Magnesium Hydroxide 400 MG/5 ML Susp 30 ML Cup PO PRN (16:51)
[2019-02-08] MEDS: Citalopram 20 MG Tab PO SCH (19:20)
[2019-02-08] MEDS: Finasteride 5 MG Tab PO SCH (19:22)
[2019-02-09] MEDS: Acetaminophen 325 MG Tab PO PRN ×3 (06:01→19:46)
[2019-02-09] MEDS: Omeprazole 20 MG Cap.CR PO SCH ×2 (06:02→16:00)
[2019-02-09] MEDS: Levothyroxine 112 MCG Tab PO SCH (06:02)
[2019-02-09] MEDS: Gabapentin 300 MG Cap PO SCH ×2 (08:18→19:47)
[2019-02-09] MEDS: Isosorbide Mononitrate 60 MG Tab.ER PO SCH (08:18)
[2019-02-09] MEDS: Ferrous Sulfate 325 MG Tab PO SCH (08:19)
[2019-02-09] MEDS: Sulfamethoxazole/Trimethoprim 400-80 MG Tab PO SCH ×2 (08:19→19:47)
[2019-02-09] MEDS: Cholecalciferol (Vitamin D3) 1,000 Unit Tab PO SCH (08:19)
[2019-02-09] MEDS: levETIRAcetam 500 MG Tab PO SCH ×2 (08:19→19:45)
[2019-02-09] MEDS: Amoxicillin 500 MG Cap PO SCH ×2 (08:20→19:47)
[2019-02-09] MEDS: Magnesium Oxide 400 MG Tab PO SCH ×3 (08:20→19:47)
[2019-02-09] MEDS: amLODIPine 2.5 MG Tab PO SCH (08:20)
[2019-02-09] MEDS: Magnesium Hydroxide 400 MG/5 ML Susp 30 ML Cup PO PRN (08:21)
[2019-02-09] MEDS: BICALUTAMIDE 50 MG PO SCH (08:22)
[2019-02-09] MEDS: Fluticasone Propionate Nasal Spray 16 GM Bottle NASBOTH SCH ×2 (08:22→19:45)
[2019-02-09] MEDS ORDERED: Magnesium Citrate Solution 296 ML Bottle PO ONE (15:36)
[2019-02-09] MEDS: Finasteride 5 MG Tab PO SCH (19:47)
[2019-02-09] MEDS: Citalopram 20 MG Tab PO SCH (19:47)
[2019-02-10] MEDS: Acetaminophen 325 MG Tab PO PRN ×2 (02:07→19:19)
[2019-02-10] MEDS: Levothyroxine 112 MCG Tab PO SCH (06:08)
[2019-02-10] MEDS: BICALUTAMIDE 50 MG PO SCH ×2 (06:08→12:42)
[2019-02-10] MEDS: Sulfamethoxazole/Trimethoprim 400-80 MG Tab PO SCH ×2 (06:09→12:43)
[2019-02-10] MEDS: amLODIPine 2.5 MG Tab PO SCH ×2 (06:09→12:43)
[2019-02-10] MEDS: Isosorbide Mononitrate 60 MG Tab.ER PO SCH ×2 (06:10→12:42)
[2019-02-10] MEDS: Amoxicillin 500 MG Cap PO SCH ×3 (06:10→19:22)
[2019-02-10] MEDS: levETIRAcetam 500 MG Tab PO SCH ×3 (06:11→19:20)
[2019-02-10] MEDS: Gabapentin 300 MG Cap PO SCH ×3 (06:11→19:21)
[2019-02-10] MEDS: Omeprazole 20 MG Cap.CR PO SCH ×2 (06:14→17:22)
[2019-02-10] MEDS: Fluticasone Propionate Nasal Spray 16 GM Bottle NASBOTH SCH ×3 (06:16→19:21)
[2019-02-10] MEDS: Magnesium Oxide 400 MG Tab PO SCH ×3 (12:44→19:22)
[2019-02-10] MEDS: Cholecalciferol (Vitamin D3) 1,000 Unit Tab PO SCH (12:44)
[2019-02-10] MEDS: Ferrous Sulfate 325 MG Tab PO SCH (12:44)
[2019-02-10] MEDS: Citalopram 20 MG Tab PO SCH (19:20)
[2019-02-10] MEDS: Simvastatin 10 MG Tab PO SCH (19:21)
[2019-02-10] MEDS: Finasteride 5 MG Tab PO SCH (19:22)
[2019-02-11] MEDS: Acetaminophen 325 MG Tab PO PRN ×2 (06:34→19:07)
[2019-02-11] MEDS: Omeprazole 20 MG Cap.CR PO SCH ×2 (06:34→16:42)
[2019-02-11] MEDS: Levothyroxine 112 MCG Tab PO SCH (06:35)
[2019-02-11] MEDS: Cholecalciferol (Vitamin D3) 1,000 Unit Tab PO SCH (08:05)
[2019-02-11] MEDS: BICALUTAMIDE 50 MG PO SCH (08:05)
[2019-02-11] MEDS: Magnesium Oxide 400 MG Tab PO SCH ×3 (08:05→19:09)
[2019-02-11] MEDS: Ferrous Sulfate 325 MG Tab PO SCH (08:05)
[2019-02-11] MEDS: levETIRAcetam 500 MG Tab PO SCH ×2 (08:06→19:08)
[2019-02-11] MEDS: Fluticasone Propionate Nasal Spray 16 GM Bottle NASBOTH SCH ×2 (08:06→19:07)
[2019-02-11] MEDS: Gabapentin 300 MG Cap PO SCH ×2 (08:06→19:09)
[2019-02-11] MEDS: amLODIPine 2.5 MG Tab PO SCH (08:07)
[2019-02-11] MEDS: Isosorbide Mononitrate 60 MG Tab.ER PO SCH (08:07)
[2019-02-11] MEDS: Citalopram 20 MG Tab PO SCH (19:08)
[2019-02-11] MEDS: Finasteride 5 MG Tab PO SCH (19:08)
[2019-02-11] MEDS: Docusate Sodium 100 MG Cap PO PRN (19:09)
[2019-02-12] MEDS: Omeprazole 20 MG Cap.CR PO SCH ×2 (06:31→17:21)
[2019-02-12] MEDS: Levothyroxine 112 MCG Tab PO SCH (06:31)
[2019-02-12] MEDS: Acetaminophen 325 MG Tab PO PRN ×2 (06:32→19:15)
[2019-02-12] MEDS: BICALUTAMIDE 50 MG PO SCH (07:37)
[2019-02-12] MEDS: Cholecalciferol (Vitamin D3) 1,000 Unit Tab PO SCH (07:37)
[2019-02-12] MEDS: Ferrous Sulfate 325 MG Tab PO SCH (07:37)
[2019-02-12] MEDS: Fluticasone Propionate Nasal Spray 16 GM Bottle NASBOTH SCH ×2 (07:38→19:19)
[2019-02-12] MEDS: levETIRAcetam 500 MG Tab PO SCH ×2 (07:38→19:16)
[2019-02-12] MEDS: Magnesium Oxide 400 MG Tab PO SCH ×3 (07:38→19:17)
[2019-02-12] MEDS: amLODIPine 2.5 MG Tab PO SCH (07:38)
[2019-02-12] MEDS: Gabapentin 300 MG Cap PO SCH ×2 (07:38→19:16)
[2019-02-12] MEDS: Isosorbide Mononitrate 60 MG Tab.ER PO SCH (07:39)
--- NOTE | 2019-02-12 09:05 | PN ---
Progress Note for ERAN RODRIGUEZ Date: 02/12/2019 Room #: VM.217 SUBJECTIVE: The patient is feeling stronger. Yesterday, he had gone down to have his suprapubic catheter replaced. There were clots in the tube today. Otherwise, no concerns. OBJECTIVE: Vital Signs: His blood pressure is 119/51, temperature is 36.6, pulse is 70, and saturations are 94% on room air. General: He is looking stronger. He is getting up with the staff to go to the bathroom. Heart: Regular. Pulmonary: Lungs are clear. Genitourinary: Catheter does have some clots within the catheter. LABORATORY DATA: Lab today shows that his hemoglobin has dropped to 8.4, white blood cell count is 5.8, and 260 platelets; sodium was 136, potassium was 5.0, and creatinine was stable at 2.0. IMPRESSION: 1. Complicated bladder infection, which is now clearing. He had had cultures of Enterococcus as well as Stenotrophomonas maltophilia, which was noted on 01/30/2019. 2. Anemia due to blood loss. 3. Prostate cancer. 4. Neurogenic bladder. PLAN: The patient is progressing with physical therapy. His antibiotics now will be done today. The intent is for him to return back to Assisted Living in 2 days. GM02/12/2019 08:13:03 MODL: 02/12/2019 08:47:30 /[id number]
[2019-02-12] MEDS: Citalopram 20 MG Tab PO SCH (19:16)
[2019-02-12] MEDS: Docusate Sodium 100 MG Cap PO PRN (19:16)
[2019-02-12] MEDS: Simvastatin 10 MG Tab PO SCH (19:17)
[2019-02-12] MEDS: Finasteride 5 MG Tab PO SCH (19:17)
[2019-02-13] MEDS: Levothyroxine 112 MCG Tab PO SCH (06:15)
[2019-02-13] MEDS: Omeprazole 20 MG Cap.CR PO SCH ×2 (06:15→17:01)
[2019-02-13] MEDS: Acetaminophen 325 MG Tab PO PRN ×2 (06:16→19:12)
[2019-02-13] MEDS: BICALUTAMIDE 50 MG PO SCH (07:22)
[2019-02-13] MEDS: Gabapentin 300 MG Cap PO SCH ×2 (07:23→19:13)
[2019-02-13] MEDS: Isosorbide Mononitrate 60 MG Tab.ER PO SCH (07:23)
[2019-02-13] MEDS: Magnesium Hydroxide 400 MG/5 ML Susp 30 ML Cup PO PRN (07:23)
[2019-02-13] MEDS: Cholecalciferol (Vitamin D3) 1,000 Unit Tab PO SCH (07:24)
[2019-02-13] MEDS: Fluticasone Propionate Nasal Spray 16 GM Bottle NASBOTH SCH ×2 (07:24→19:10)
[2019-02-13] MEDS: Ferrous Sulfate 325 MG Tab PO SCH (07:24)
[2019-02-13] MEDS: levETIRAcetam 500 MG Tab PO SCH ×2 (07:24→19:14)
[2019-02-13] MEDS: Magnesium Oxide 400 MG Tab PO SCH ×3 (07:24→19:14)
[2019-02-13] MEDS: amLODIPine 2.5 MG Tab PO SCH (07:25)
[2019-02-13] MEDS: Finasteride 5 MG Tab PO SCH (19:13)
[2019-02-13] MEDS: Citalopram 20 MG Tab PO SCH (19:14)
[2019-02-13] MEDS: Docusate Sodium 100 MG Cap PO PRN (19:14)
[2019-02-14] MEDS: Levothyroxine 112 MCG Tab PO SCH (06:22)
[2019-02-14] MEDS: Omeprazole 20 MG Cap.CR PO SCH (06:22)
[2019-02-14] MEDS: Acetaminophen 325 MG Tab PO PRN (06:23)
[2019-02-14] MEDS: BICALUTAMIDE 50 MG PO SCH (08:38)
[2019-02-14] MEDS: Ferrous Sulfate 325 MG Tab PO SCH (08:40)
[2019-02-14] MEDS: Fluticasone Propionate Nasal Spray 16 GM Bottle NASBOTH SCH (08:41)
[2019-02-14] MEDS: Isosorbide Mononitrate 60 MG Tab.ER PO SCH (08:42)
[2019-02-14] MEDS: levETIRAcetam 500 MG Tab PO SCH (08:42)
[2019-02-14] MEDS: amLODIPine 2.5 MG Tab PO SCH (08:43)
[2019-02-14] MEDS: Gabapentin 300 MG Cap PO SCH (08:43)
[2019-02-14] MEDS: Magnesium Oxide 400 MG Tab PO SCH ×2 (08:43→12:06)
[2019-02-14] MEDS: Cholecalciferol (Vitamin D3) 1,000 Unit Tab PO SCH (08:44)
[2019-02-14 08:48] VITALS: BP 123/54
--- NOTE | 2019-02-14 08:50 | PN ---
Progress Note for ERAN RODRIGUEZ Date: 02/14/2019 Room #: VM.217 SUBJECTIVE: The patient is feeling much stronger. He feels able to go home. He will have Home Health when he goes home. His catheter is still draining some bloody urine. OBJECTIVE: Vital Signs: His temperature is 37.1, pulse 54, blood pressure is 127/54, respiratory rate 16, saturations are 97%. General: His skin is pink, warm, and dry. Heart: Regular rate. Lungs: Clear. Abdomen: Soft. Neurologic: He is alert, still has a slight tremor at rest. LABORATORY DATA: last lab work, which was done on 02/12, shows that his hemoglobin slightly dropped to 8.4, and creatinine was 2.0. IMPRESSION: 1. Resolved complicated urinary tract infection. 2. Suprapubic catheter, status post replacement for bladder retention. 3. Metastatic prostate cancer. 4. Anemia secondary to blood loss. 5. Hypertension. PLAN: We will make arrangements for the patient to go home with home health. Please refer discharge summary. GM02/14/2019 08:11:57 MODL: 02/14/2019 08:34:32 /[id number] MTDD
--- NOTE | 2019-02-14 09:04 | DISCH ---
PRIMARY DIAGNOSES: 1. Complicated urinary tract infection with;. 2. Delirium, which has cleared with;. 3. Weakness secondary to delirium. 4. Anemia secondary to blood loss with;. 5. Metastatic prostate cancer. 6. Urinary retention with suprapubic catheter. 7. Hypertension. 8. Parkinson disease. 9. Anxiety disorder. 10.Chronic kidney disease, stage 4. 11.Hypomagnesemia. 12.Acute sinusitis. 13.Coronary artery disease. 14.Hypercholesterolemia. 15.Hypothyroidism. SUMMARY OF ADMIT HISTORY AND PHYSICAL: The patient is an 88-year-old male who had actually been admitted to acute care on 01/19/2019 with weakness and infection that was treated with Cipro. He ended up having bladder infections with Enterococcus faecalis and Stenotrophomonas maltophilia, which had been treated for over 7 days with Cipro. He ended up on acute care, having a blood transfusion on 01/20/2019, where his hemoglobin had dropped down to 7.5 as he had been symptomatic. SUMMARY OF SWING BED COURSE: While on swing bed, the patient had worked with physical therapy to get stronger. He did have a relapse in strength and did require additional physical therapy. His hemoglobin on entering swing bed was 8.8, did maximize to 9.0, was down to 8.4 by 02/12/2019. The patient did go to [place] for suprapubic catheter change on 02/11/2019. The patient also does doctor at the [place] and has been seen by Radiation Oncology at [facility]. The patient's blood pressure was noted to have been elevated during this hospital stay, so he was started on amlodipine. His blood work was done on 02/12, which showed hemoglobin of 8.4, white blood cell count 5.8 with 260 platelets. Sodium 139, potassium 5.0, creatinine 2.0, GFR 32, glucose 96. Last magnesium was checked on 01/27/2019, it was 1.9, and at that time, albumin was 2.8. He did have a cholesterol done since he was here fasting on 01/27/2019. Total cholesterol is 119, triglycerides 111, LDL 30, HDL 67, TSH was 2.4. The patient had a gvid-et-rort evaluation today for need for home health. The patient is weak, deconditioned. He is unable to walk more than 50 feet without becoming extremely fatigued. He will require help to be transported to clinic appointments and outpatient therapies as he would not be able to do that on his own. He will need strengthening for physical therapy. He also will have Home Health for catheter cares with monitoring to make certain that there is no repeat infection. I will be monitoring his progress with physical therapy. He is homebound. MEDICATIONS: At the time of discharge will be Tylenol 1000 mg 3 times a day as needed; isosorbide mononitrate 30 mg daily; Proscar 5 mg 1 pill at bedtime; Neurontin 300 mg 1 pill twice a day; simvastatin 10 mg at bedtime; levothyroxine 112 mcg, he takes half a pill daily; omeprazole 20 mg 1 pill twice a day; Flonase 1 spray each nostril twice a day; milk of magnesia 30 mL daily p.r.n.; vitamin D, takes 2000 units daily; casodex 50 mg 1 pill daily; Tylenol 325, takes 3 pills 4 times a day as needed; levetiracetam/Keppra 250 mg 1 pill twice a day; ferrous sulfate 325 one pill daily, docusate 100 mg 1 pill twice a day as needed; magnesium oxide 400 mg 1 pill 3 times a day; Seroquel 25 mg half a pill twice a day as needed for anxiety; Celexa 20 mg 1 pill at bedtime. Code level status at the time of discharge is do not resuscitate, do not intubate. We will have the patient follow up to see me within 1 to 2 weeks' time for re-evaluation. To note, the patient may continue to have blood loss and may require further transfusions due to his loss of blood from his bladder. [facility] as his [facility] oncologist through [place]. I do anticipate the patient to continue to get weaker from his metastatic prostate cancer and will most likely need to be readmitted in the near future for recurrence of similar health problems. To note, family has been talked with through [employer] about needing senior living care versus considering getting hospice care involved and they know that he eventually will be needing hospice care. Once home health is done, he also may benefit by palliative care. GM02/14/2019 08:23:59 MODL: 02/14/2019 08:54:30 /[id number]
== END 2019-02-14 17:45 | disposition home health service (06) | DRG 699 ==
LOC: VM.MS 08:57
PROVIDERS: ADMIT Family Medicine; ATTEND Family Medicine
PROC: F08Z4ZZ Home Management Treatment (ICD-10-PCS; principal; 2019-01-29)
PROC: F08Z2ZZ Grooming/Personal Hygiene Treatment (ICD-10-PCS; 2019-01-29)
DX: T83.518A Infection and inflammatory reaction due to other urinary catheter, initial encounter (principal); N39.0 Urinary tract infection, site not specified; D62 Acute posthemorrhagic anemia; N18.4 Chronic kidney disease, stage 4 (severe); Z66 Do not resuscitate; J01.90 Acute sinusitis, unspecified; C61 Malignant neoplasm of prostate; I12.9 Hypertensive chronic kidney disease with stage 1 through stage 4 chronic kidney disease, or unspecified chronic kidney disease; N31.9 Neuromuscular dysfunction of bladder, unspecified; B95.2 Enterococcus as the cause of diseases classified elsewhere; B96.89 Other specified bacterial agents as the cause of diseases classified elsewhere; Y84.6 Urinary catheterization as the cause of abnormal reaction of the patient, or of later complication, without mention of misadventure at the time of the procedure; E78.00 Pure hypercholesterolemia, unspecified; E03.9 Hypothyroidism, unspecified; R41.0 Disorientation, unspecified; R33.9 Retention of urine, unspecified; G20 Parkinson's disease; I25.10 Atherosclerotic heart disease of native coronary artery without angina pectoris; E83.42 Hypomagnesemia; R31.9 Hematuria, unspecified; F41.9 Anxiety disorder, unspecified; B95.5 Unspecified streptococcus as the cause of diseases classified elsewhere; Z16.29 Resistance to other single specified antibiotic
CPT/HCPCS: 36415; 80048; 80053; 80061; 81001; 83735; 83880; 84443; 85025; 87086; 87088; 87186; 97110-GP; 97116-GP; 97165-GO; 97530-GP; A9270-GY

== ENCOUNTER 2019-04-25 08:35 | Inpatient (IN) | payer MEDICARE, OTHER ==
[2019-04-25] MEDS ORDERED: Sodium Chloride 0.9% 10 ML Syringe FLUSH PRN (08:41)
--- NOTE | 2019-04-25 09:17 | EDM.PDOC ---
ED HPI GENERAL MEDICAL PROBLEM - General Chief Complaint: Fever Time Seen by Provider: 04/25/19 08:35 Source of Information: Reports: Family History Limitations: Reports: No Limitations - History of Present Illness INITIAL COMMENTS - FREE TEXT/NARRATIVE: Pt. presents to ER via private vehicle. Pt. is a resident of [facility]. Daughter states that the patient has been more fatigued, confused, and weak over the past several days. She states that the patient, who has a suprapubic catheter, has been having some hematuria. Daughter states that she has been flushing the catheter. She also states that the catheter was recently changed. Daughter states that the patient was profoundly weak this AM and required almost complete assist to get the patient in a car using a gait belt. Pt. has been complaining of lower abdominal and low back pain. Denies any chest pain or shortness of breath. He has a history of Parkinson's disease as well as age-related cognitive decline. He also has a history of metastatic prostates CA. Onset Date: 04/22/19 Duration: Getting Worse Quality: Reports: Ache (abdomen) Associated Symptoms: Reports: Confusion, Fever/Chills, Malaise, Weakness. Denies: Cough, cough w sputum, Nausea/Vomiting - Related Data Allergies Allergy/AdvReac Type Severity Reaction Status Date / Time lisinopril Allergy Cannot Verified 04/25/19 09:24 Remember selegiline [From Eldepryl] Allergy Cannot Verified 12/15/18 12:23 Remember YOSEF Inhibitors AdvReac Cough Verified 12/15/18 12:23 carbidopa [From Sinemet] AdvReac Hallucinati Verified 12/15/18 12:23 ons hydrocodone AdvReac Nausea and Verified 12/15/18 12:23 Vomiting levodopa [From Sinemet] AdvReac Hallucinati Verified 12/15/18 12:23 ons lorazepam [From Ativan] AdvReac Hallucinati Verified 01/20/19 15:03 ons oxycodone AdvReac Nausea and Verified 12/15/18 12:23 Vomiting pramipexole di-HCl AdvReac Hallucinati Verified 12/15/18 12:23 [From Mirapex] ons Home Meds: Home Meds Acetaminophen [Tylenol Extra Strength] 1,000 mg PO TID PRN 04/26/15 [History] Finasteride [Proscar] 5 mg PO QPM 04/26/15 [History] Gabapentin [Neurontin] 300 mg PO BID 04/26/15 [History] Isosorbide Mononitrate [Imdur] 30 mg PO DAILY 04/26/15 [History] Levothyroxine Sodium [Synthroid] 56 mcg PO DAILY 04/26/15 [History] Simvastatin [Zocor] 10 mg PO BEDTIME 04/26/15 [History] Fluticasone Propionate [Flonase] 1 spray NASBOTH BID 08/25/15 [History] Omeprazole 20 mg PO BIDAC 08/25/15 [History] Cholecalciferol (Vitamin D3) [Vitamin D3] 2,000 units PO DAILY 05/04/18 [History ] Magnesium Hydroxide [Milk of Magnesia] 30 ml PO DAILY PRN 05/04/18 [History] Acetaminophen [Tylenol] 975 mg PO QID PRN 11/07/18 [History] Bicalutamide [Casodex] 50 mg PO DAILY 11/07/18 [History] levETIRAcetam [Levetiracetam] 250 mg PO Q12H 11/13/18 [History] Ferrous Sulfate 325 mg PO WITHBREAKFAST #30 tablet 11/17/18 [Rx] Docusate Sodium 100 mg PO BID PRN 12/15/18 [History] Magnesium Oxide 400 mg PO TID tablet 01/24/19 [Rx] QUEtiapine [SEROquel] 12.5 year PO BID PRN 01/24/19 [History] Escitalopram [Lexapro] 10 mg PO DAILY 04/25/19 [History] L.acidoph,Paracasei, B.lactis [Probiotic] 1 each PO DAILY 04/25/19 [History] Past Medical History HEENT History: Reports: Allergic Rhinitis Cardiovascular History: Reports: Afib, CAD, Heart Failure, Hypertension, NE, Pacemaker Gastrointestinal History: Reports: Chronic Constipation Genitourinary History: Reports: Renal Disease Neurological History: Reports: Brain Injury, Parkinson's, Other (See Below) Other Neuro History: blood clot removed from head s/p fall Endocrine/Metabolic History: Reports: Hypothyroidism, Vitamin D Deficiency Oncologic (Cancer) History: Reports: Prostate Other Dermatologic History: 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 - Past Surgical History Cardiovascular Surgical History: Reports: Pacer Male Surgical History: Reports: Suprapubic Catheter Placement Social & Family History - Family History Family Medical History: Noncontributory - Caffeine Use Caffeine Use: Reports: Coffee ED ROS GENERAL - Review of Systems Review Of Systems: See Below Constitutional: Reports: No Symptoms HEENT: Reports: No Symptoms Respiratory: Reports: No Symptoms Cardiovascular: Reports: No Symptoms Endocrine: Reports: No Symptoms GI/Abdominal: Reports: Abdominal Pain : Reports: Flank Pain, Hematuria Musculoskeletal: Reports: No Symptoms Skin: Reports: No Symptoms Neurological: Reports: Confusion Psychiatric: Reports: No Symptoms Hematologic/Lymphatic: Reports: No Symptoms Immunologic: Reports: No Symptoms ED EXAM, GENERAL - Physical Exam Exam: See Below Exam Limited By: No Limitations General Appearance: Alert, Lethargic, Obtunded Ears: Normal External Exam, Normal Canal, Hearing Grossly Normal, Normal TMs Ear Exam: Right Ear: Other (cerumen partially obstructing R TM. ), Bilateral Ear : Auricle Normal, Canal Normal, TM normal Nose: Normal Inspection, Normal Mucosa, No Blood, Clear Rhinorrhea Throat/Mouth: Normal Inspection, Normal Lips, Normal Teeth, Normal Gums, Normal Oropharynx, Normal Voice, No Airway Compromise Head: Atraumatic, Normocephalic Neck: Normal Inspection, Supple, Non-Tender, Full Range of Motion Respiratory/Chest: No Respiratory Distress, Lungs Clear, Normal Breath Sounds, No Accessory Muscle Use, Chest Non-Tender Cardiovascular: Normal Peripheral Pulses, Regular Rate, Rhythm, No Edema, No Gallop, No JVD, No Murmur Peripheral Pulses: 3+: Radial (R) GI/Abdominal: Soft, Non-Tender, No Organomegaly, No Distention, No Abnormal Bruit, No Mass (Male) Exam: Deferred, Other (suprapubic catheter in place. Clear, dark- colored urine noted.) Back Exam: Normal Inspection, Full Range of Motion Extremities: Normal Inspection, Non-Tender, No Pedal Edema, Normal Capillary Refill, Pallor Neurological: Confused, Disoriented, Slow to Respond Psychiatric: Normal Affect, Normal Mood Skin Exam: Warm, Dry, Intact, No Rash, Pallor Course - Orders/Labs/Meds Orders: Active Orders 24 hr Category Date Time Status Patient Status [ADT] Routine ADT 04/25/19 10:02 Active EKG Documentation Completion [RC] STAT Care 04/25/19 08:41 Active CULTURE BLOOD [BC] Stat Lab 04/25/19 08:55 Received CULTURE BLOOD [BC] Stat Lab 04/25/19 08:55 Received CULTURE URINE [RM] Stat Lab 04/25/19 09:50 Received Sodium Chloride 0.9% [Normal Saline] 1,000 ml Med 04/25/19 10:00 Active IV ASDIRECTED Sodium Chloride 0.9% [Saline Flush] Med 04/25/19 08:41 Active 10 ml FLUSH ASDIRECTED PRN Blood Culture x2 Reflex Set [OM.PC] Stat Oth 04/25/19 08:43 Ordered Peripheral IV Insertion Adult [OM.PC] Routine Oth 04/25/19 08:42 Ordered Medication Orders Sodium Chloride (Normal Saline) 1,000 mls @ 150 mls/hr IV ASDIRECTED REBECCA Sodium Chloride (Saline Flush) 10 ml FLUSH ASDIRECTED PRN PRN Reason: Keep Vein Open Labs: Laboratory Tests 04/25/19 04/25/19 04/25/19 Range/Units 08:41 08:55 08:55 WBC 15.4 H (4.0-10.0) x10^3/uL RBC 2.68 L (4.5-6.0) x10^6/uL Hgb 8.6 L (14.0-18.0) g/dL Hct 26.9 L (40.0-52.0) % MCV 100.4 H (78.0-93.0) fL MCH 32.1 H (26.0-32.0) pg MCHC 32.0 (32.0-36.0) g/dL RDW Coeff of Erna 12.2 (10.0-15.0) % Plt Count 311 (130-400) x10^3/uL Neut % (Auto) 81.2 H (50.0-80.0) % Lymph % (Auto) 10.0 L (25.0-50.0) % Montgomery % (Auto) 8.6 (2.0-11.0) % Eos % (Auto) 0.1 (0.0-4.0) % Baso % (Auto) 0.1 L (0.2-1.2) % PT 10.6 (10.0-12.8) SEC INR 0.9 L (2.0-3.5) Sodium 134 L (136-145) mmol/L Potassium 4.4 (3.5-5.1) mmol/L Chloride 99 (98-107) mmol/L Carbon Dioxide 25 (21-32) mmol/L Anion Gap 14.4 (10-20) mmol/L BUN 24 H (7-18) mg/dL Creatinine 2.5 H (0.70-1.30) mg/dL Est Cr Clr Drug Dosing TNP Estimated GFR (MDRD) 24 Glucose 127 H (74-106) mg/dL Lactic Acid (0.4-2.0) mmol/L Calcium 9.7 (8.5-10.1) mg/dL Corrected Calcium 10.18 H (8.5-10.1) mg/dL Phosphorus 3.4 (2.6-4.7) mg/dL Magnesium 1.7 L (1.8-2.4) mg/dL Total Bilirubin 0.4 (0.2-1.0) mg/dL AST 15 (15-37) U/L ALT 12 L (16-63) U/L Alkaline Phosphatase 60 (46-116) U/L Troponin I < 0.017 (<=0.056) ng/mL C-Reactive Protein 5.4 H (<=0.9) mg/dL Total Protein 6.8 (6.4-8.2) g/dL Albumin 3.4 (3.4-5.0) g/dL Globulin 3.4 Albumin/Globulin Ratio 1.00 Urine Color (YELLOW) Urine Appearance (CLEAR) Urine pH (5.0-8.0) Ur Specific Prewitt Urine Protein (NEGATIVE) mg/dL Urine Glucose (UA) (NEGATIVE) mg/dL Urine Ketones (NEGATIVE) mg/dL Urine Occult Blood (NEGATIVE) Urine Nitrite (NEGATIVE) Urine Bilirubin (NEGATIVE) Urine Urobilinogen (0.2) EU/dL Ur Leukocyte Esterase (NEGATIVE) Urine RBC (NOT SEEN) /HPF Urine WBC (NOT SEEN) /HPF Urine Bacteria (NEGATIVE) /HPF Urine Mucus (NEGATIVE) /LPF 04/25/19 04/25/19 Range/Units 08:55 08:55 WBC (4.0-10.0) x10^3/uL RBC (4.5-6.0) x10^6/uL Hgb (14.0-18.0) g/dL Hct (40.0-52.0) % MCV (78.0-93.0) fL MCH (26.0-32.0) pg MCHC (32.0-36.0) g/dL RDW Coeff of Erna (10.0-15.0) % Plt Count (130-400) x10^3/uL Neut % (Auto) (50.0-80.0) % Lymph % (Auto) (25.0-50.0) % Montgomery % (Auto) (2.0-11.0) % Eos % (Auto) (0.0-4.0) % Baso % (Auto) (0.2-1.2) % PT (10.0-12.8) SEC INR (2.0-3.5) Sodium (136-145) mmol/L Potassium (3.5-5.1) mmol/L Chloride (98-107) mmol/L Carbon Dioxide (21-32) mmol/L Anion Gap (10-20) mmol/L BUN (7-18) mg/dL Creatinine (0.70-1.30) mg/dL Est Cr Clr Drug Dosing Estimated GFR (MDRD) Glucose (74-106) mg/dL Lactic Acid 1.5 (0.4-2.0) mmol/L Calcium (8.5-10.1) mg/dL Corrected Calcium (8.5-10.1) mg/dL Phosphorus (2.6-4.7) mg/dL Magnesium (1.8-2.4) mg/dL Total Bilirubin (0.2-1.0) mg/dL AST (15-37) U/L ALT (16-63) U/L Alkaline Phosphatase (46-116) U/L Troponin I (<=0.056) ng/mL C-Reactive Protein (<=0.9) mg/dL Total Protein (6.4-8.2) g/dL Albumin (3.4-5.0) g/dL Globulin Albumin/Globulin Ratio Urine Color Yellow (YELLOW) Urine Appearance Cloudy H (CLEAR) Urine pH 7.0 (5.0-8.0) Ur Specific Prewitt 1.015 Urine Protein 100 H (NEGATIVE) mg/dL Urine Glucose (UA) Negative (NEGATIVE) mg/dL Urine Ketones Negative (NEGATIVE) mg/dL Urine Occult Blood Large H (NEGATIVE) Urine Nitrite Positive H (NEGATIVE) Urine Bilirubin Negative (NEGATIVE) Urine Urobilinogen 0.2 (0.2) EU/dL Ur Leukocyte Esterase Large H (NEGATIVE) Urine RBC 50-75 H (NOT SEEN) /HPF Urine WBC 20-30 H (NOT SEEN) /HPF Urine Bacteria Few H (NEGATIVE) /HPF Urine Mucus Few H (NEGATIVE) /LPF Meds: Medications Generic Name Dose Route Start Last Admin Trade Name Freq PRN Reason Stop Dose Admin Sodium Chloride 1,000 mls @ 150 mls/hr 04/25/19 10:00 Normal Saline IV ASDIRECTED REBECCA Sodium Chloride 10 ml 04/25/19 08:41 Saline Flush FLUSH ASDIRECTED PRN Keep Vein Open Discontinued Medications Generic Name Dose Route Start Last Admin Trade Name Freq PRN Reason Stop Dose Admin Ceftriaxone Sodium 2 gm 04/25/19 09:28 04/25/19 09:36 Rocephin IVPUSH 04/25/19 09:29 2 gm STAT ONE Administration Departure - Departure Time of Disposition: 10:19 Disposition: Admitted As Inpatient 65 Clinical Impression: Hypomagnesemia, Weakness UTI (urinary tract infection) Qualifiers: Urinary tract infection type: acute cystitis Hematuria presence: with hematuria Qualified Code(s): N30.01 - Acute cystitis with hematuria [id number] kidney injury Qualifiers: Acute renal failure type: unspecified Chronic kidney disease stage: unspecified stage Qualified Code(s): N17.9 - Acute kidney failure, unspecified - Discharge Information Forms: ED Department Discharge - My Orders Last 24 Hours: My Active Orders 04/25/19 08:41 EKG Documentation Completion [RC] STAT Sodium Chloride 0.9% [Saline Flush] 10 ml FLUSH ASDIRECTED PRN 04/25/19 08:42 Peripheral IV Insertion Adult [OM.PC] Routine 04/25/19 08:43 Blood Culture x2 Reflex Set [OM.PC] Stat 04/25/19 08:55 CULTURE BLOOD [BC] Stat CULTURE BLOOD [BC] Stat 04/25/19 09:50 CULTURE URINE [RM] Stat 04/25/19 10:00 Sodium Chloride 0.9% [Normal Saline] 1,000 ml IV ASDIRECTED 04/25/19 10:02 Patient Status [ADT] Routine - Assessment/Plan Last 24 Hours: My Active Orders 04/25/19 08:41 EKG Documentation Completion [RC] STAT Sodium Chloride 0.9% [Saline Flush] 10 ml FLUSH ASDIRECTED PRN 04/25/19 08:42 Peripheral IV Insertion Adult [OM.PC] Routine 04/25/19 08:43 Blood Culture x2 Reflex Set [OM.PC] Stat 04/25/19 08:55 CULTURE BLOOD [BC] Stat CULTURE BLOOD [BC] Stat 04/25/19 09:50 CULTURE URINE [RM] Stat 04/25/19 10:00 Sodium Chloride 0.9% [Normal Saline] 1,000 ml IV ASDIRECTED 04/25/19 10:02 Patient Status [ADT] Routine Plan: Pt. will be admitted acutely. Dr. Renteria will be admitting for Dr. Bolden. He was given 2 gm rocephin IV in ER. He was started on NS at 150ml/hr. Urine was sent for culture.
--- NOTE | 2019-04-25 09:19 | CR ---
[id number] RAD/RAD Chest PA or AP 1V EXAM: RAD Chest PA or AP 1V INDICATION: FEVER, CONFUSION. COMPARISON: January 22, 2019. DISCUSSION: Left chest wall cardiac conduction device. Cardiomediastinal silhouette is stable in size and contour. No infiltrate, effusion, pneumothorax, or edema. Lung volumes associated vascular crowding. This is in the setting of changes of chronic obstructive pulmonary disease. IMPRESSION: No acute cardiopulmonary abnormality. Kunal Michael DO 04/25/19 0919 Thank you for allowing us to participate in the care of your patient.
[2019-04-25] MEDS ORDERED: cefTRIAXone 2 GM Vial IVPUSH ONE (09:28)
[2019-04-25 09:35] LABS: CHLORIDE,CL 99 mmol/L (98-107); SODIUM,NA 134 mmol/L (136-145)
[2019-04-25 09:40] LABS: ANION GAP 14.4 mmol/L (10-20)
[2019-04-25] MEDS: Sodium Chloride 0.9% 1,000 ML IV SCH ×2 (09:45→13:38)
[2019-04-25] MEDS ORDERED: QUEtiapine 25 MG Tab PO PRN (12:17)
[2019-04-25] MEDS ORDERED: Docusate Sodium 100 MG Cap PO PRN (12:17)
[2019-04-25] MEDS ORDERED: Magnesium Hydroxide 400 MG/5 ML Susp 30 ML Cup PO PRN (12:17)
[2019-04-25] MEDS ORDERED: Acetaminophen 325 MG Tab PO PRN (12:17)
[2019-04-25] MEDS: Ciprofloxacin in D5W 200 MG in Premix Bag 1 BAG IV SCH ×2 (13:23)
[2019-04-25] MEDS: levETIRAcetam 500 MG Tab PO SCH ×2 (13:29→19:44)
[2019-04-25] MEDS: Omeprazole 20 MG Cap.CR PO SCH (17:00)
[2019-04-25] MEDS: Acetaminophen 500 MG Tab PO PRN (17:00)
[2019-04-25] MEDS: Fluticasone Propionate Nasal Spray 16 GM Bottle NASBOTH SCH (19:44)
[2019-04-25] MEDS: Finasteride 5 MG Tab PO SCH (19:45)
[2019-04-25] MEDS: Magnesium Oxide 400 MG Tab PO SCH (19:45)
[2019-04-25] MEDS: Gabapentin 300 MG Cap PO SCH (19:45)
[2019-04-25] MEDS ORDERED: Simvastatin 10 MG Tab PO SCH (20:00)
--- NOTE | 2019-04-26 00:04 | HP ---
CHIEF COMPLAINT: Weakness. HISTORY OF PRESENT ILLNESS: This is an 88-year-old male with well known history of prostate cancer, urinary retention, suprapubic in place with hematuria with recurrent UTIs, who comes in today after his daughter found him to be extremely weak at home, requiring a complete assistance. He does complain of some lower abdominal pain. He did mention to the ER provider some back pain, but has not had any cough or shortness of breath. He denies any nausea. He has not had much for a fever. Denies any shaking chills, was evaluated in the emergency room, given 2 g of IV Rocephin, was afebrile, but had elevated white count of 15,000. The patient had recently just had a prolonged admission in January for complicated urinary tract infection and actually grew Stenotrophomonas maltophilia and Enterococcus species. He had also a previous admission in December for pneumonia. PAST MEDICAL HISTORY: Includes previous BPH with TURP in the past, adrenal incidentaloma, previous GI bleeding with AVMs, AFib, not on Coumadin, due to bleeding, chronic diastolic heart failure, EF 65%, previous colon polyps, chronic headaches, cognitive dysfunction with previous subdural hematoma in 2014, coronary artery disease with remote AL in 1971, diverticulosis, anxiety, glossitis, using Neurontin, Parkinson's, dysphagia, history of pacemaker placement for bradycardia. Other past medical history includes again the prostate cancer with bony metastasis, recurrent UTIs, hyperlipidemia, hypothyroidism, essential hypertension, chronic kidney disease, baseline creatinine 1.8 to 1.2. PAST SURGICAL HISTORY: He has had a suprapubic catheter and TURP. He has had a craniotomy with che holes in 2014, cholecystectomy, appendectomy, cataracts extraction, right salivary duct stone removed, cystourethroscopy, and pacemaker battery replacement. SOCIAL HISTORY: The patient is . He is a retired medrano. He lives at [facility] with his . He has several children, but 1 daughter is present today, Tiffany, she lives locally. He does not smoke, but did smoke in the past. He is a [place] [employer]. He is a nondrinker. FAMILY HISTORY: Both parents are . He has a sister, who is living. ALLERGIES: Include the selegiline, YOSEF inhibitors, carbidopa, hydrocodone, levodopa, oxycodone, pramipexole. Family also does not like him to receive Ativan. MEDICATIONS: Probiotics, Lexapro 10 mg daily, iron 325 b.i.d., Casodex 50 mg daily, Colace 100 mg twice daily, Mag-Ox 400 mg 3 times a day, Tylenol 975 every 6 hours as needed, Imdur 30 mg daily, levothyroxine 56 mcg daily, Neurontin 300 twice daily, milk of magnesia p.r.n., Flonase twice daily, Keppra 250 twice daily, vitamin D 2000 units daily, Zocor 10 mg daily, Proscar 5 mg daily, Prilosec 20 mg daily. REVIEW OF SYSTEMS: General: He has actually lost about 9 pounds since December, but is up about 5 pounds in the last month per chart review. Again, he has not really noted fever or chills, but generalized weakness. HEENT: No sinus congestion or sore throat. Cardiac: No chest pain. No palpitations. Respiratory: No shortness of breath or cough. Abdominal: He has had some lower abdominal discomfort. Otherwise, no nausea, vomiting, diarrhea. Otherwise, all systems reviewed and found to be negative unless otherwise stated. LABORATORY WORKUP: Does show him to have a white count 15.4, hemoglobin 8.6, which is his baseline, platelets 311. INR 0.9, sodium 134, potassium 4.4, chloride 99, bicarb 25, BUN 24, creatinine up to 2.5, glucose 127, lactic 1.5, calcium 10.1, magnesium 1.7, AST 15, ALT 12. Troponin negative. CRP 5.4. UA; 50 to 75 rbc's and 20 to 30 wbc's. ASSESSMENT AND PLAN: 1. Complicated urinary tract infection. The patient had his suprapubic catheter changed around 04/17 at the [facility]. Daughter states they did put in some new type of tube or device. He has almost had more problems since they did not get a repeat urine at that time because specialist said he would always appear to have infections with the catheter. Daughter tried flushing it a few days ago. He has only had about 300 out. It appears like it is not draining well now. We will continue work on flushing it. As long as it is draining, it could just be his dehydration from his illness. If it is unable to drain at all, we will need to get a CT scan and possibly even transfer as this suprapubic sounds like something that needed to be changed with cystoscopy and not anything I am going to be able to manage locally. I will upgrade his IV Rocephin to Cipro. Ideally, Bactrim would be the best choice if he grows Stenotrophomonas again; however, we would like to see his kidney function improve a little bit first. He did not meet sepsis criteria. Therefore, I am going to not repeat the lactic acid unless he spikes fever, has other problems. 2. Generalized weakness, most presumably due to his urinary tract infection and renal failure. We will get him some fluids. We will get him up and moving with therapies. 3. Acute on chronic renal failure. We will make sure his Mederos is draining well and repeat lab work tomorrow. Give him IV fluids. 4. Iron-deficiency anemia due to chronic blood loss from hematuria. We will continue his iron. I am going to hold off on any DVT prophylaxis given his active bleeding. 5. Underlying Parkinson's. 6. Anxiety and restlessness at night. Seroquel will be given p.r.n. as daughter usually stays here with him. 7. Multiple other comorbidities like coronary disease, chronic diastolic heart failure, cognitive dysfunction, generalized anxiety disorder, and hypothyroidism, which were all chronic and will be monitored and managed as needed. I am going to actually discontinue his statin medication and probably discuss further with his daughter. Considerations for palliative care on discharge to help manage his symptoms and provide supportive cares. The patient is a code level 3. No CPR. MKA: 04/25/2019 18:03:45 MODL: 04/25/2019 23:57:27 /[id number]
[2019-04-26] MEDS: Ciprofloxacin in D5W 200 MG in Premix Bag 1 BAG IV SCH ×4 (05:04→23:36)
[2019-04-26 07:58] LABS: ANION GAP 14.3 mmol/L (10-20)
[2019-04-26] MEDS ORDERED: QUEtiapine 25 MG Tab PO PRN (09:25)
--- NOTE | 2019-04-26 10:22 | PN ---
Progress Note for ERAN RODRIGUEZ Date: 04/26/2019 Room #: [id number] SUBJECTIVE: Hospital day #2 on an 88-year-old admitted yesterday with abdominal pain, low back pain, confusion, and weakness, worsening over the last 2 days. The patient's daughter is at the bedside. The patient had a lot of difficulty sleeping last night, so around 11:30, he did get a dose of Seroquel, and now he is resting. He is not even able to be woke up with some painful stimuli. She tells me this is normal for him for about the first 24 to 48 hours when he comes into the hospital. It does not happen at home. It only happens when he has a UTI. He did get febrile last night around 5:00 p.m., he spiked a fever up to 102.3, and then his last T-max was 101.4 at 5:45. Otherwise, he had not eaten much yesterday, just a little bit of pudding, all of his intake was through IV fluids, but we had to restart an IV, so he was off for about 3 hours. He is getting output now from his catheter after flushing it. OBJECTIVE: Vital Signs: On exam this morning, he is 80.9 kg, temperature 99.9, pulse 70, blood pressure 156/56, respiratory rate 18, and O2 of 96 on 2 L. General: He is in no acute distress. He is resting in bed. Abdomen: He does not make any grimacing of his face when I use painful stimuli or palpate his abdomen. He does have a suprapubic in place. He has positive bowel sounds. He has maybe a little bit more fullness on the right side, but is rolled over that way. Heart: Regular rate and rhythm today with murmur noted. Lungs: Lung sounds have clearness to air entry, but very decreased effort as he is just sleeping during the exam and unable to be awoken. Again, daughter states that this is his norm after he gets Seroquel. LABORATORY DATA: Lab work shows white count down to 13.5, hemoglobin down to 7.2, platelets 232. Sodium 134; potassium 4.3; chloride 102; bicarb 22; BUN 23; creatinine 2.4, down from 2.5; glucose 118; calcium 9; magnesium still only 1.5, he is on oral magnesium. Urine culture still pending. ASSESSMENT AND PLAN: 1. Complicated urinary tract infection. The patient with suprapubic catheter. Culture pending. He got IV Rocephin. He is now day #2 on IV Cipro. 2. Generalized weakness and somnolence due to the urinary tract infection and Seroquel needed last night. 3. Delirium due to acute illness. We will decrease his Seroquel to 6.25 mg doses. Did encourage them to try to take it earlier in the evening as he does need some rest at night, and we want him to be more up during the day and eating. 4. Kvkmr-eb-lqquqwa renal failure. This has not improved significantly. We will continue IV fluids and repeat tomorrow. 5. Rnozg-ny-lhdfxsw anemia, likely due to some hemodilution. He does have chronic blood loss from hematuria. At this point, we will hold off on transfusion, but we will type and screen tomorrow and consider it, especially if he is going to be more up and alert and getting out of bed with therapies. I feel he would be quite symptomatic and weak with this low of hemoglobin. 6. Underlying Parkinson's. 7. Underlying metastatic prostate cancer to the bone. 8. Anxiety. He is on his citalopram home medication for that. 9. Multiple medical comorbidities like coronary disease, chronic diastolic heart failure, cognitive dysfunction, and hypothyroidism, all of which are stable. At this point, the patient will continue on acute cares. If he spikes further fevers today, we will likely upgrade his IV antibiotics to cefepime to consider better coverage for previous cultures of Stenotrophomonas. However, he has had multiple different organisms through the urine, and we would like to avoid things like Bactrim given his renal failure. MKA: 04/26/2019 09:30:14 MODL: 04/26/2019 10:16:30 /[id number]
[2019-04-26] MEDS: Sodium Chloride 0.9% 1,000 ML IV SCH ×3 (11:00→23:37)
[2019-04-26] MEDS: Omeprazole 20 MG Cap.CR PO SCH ×2 (11:01→17:09)
[2019-04-26] MEDS: Ferrous Sulfate 325 MG Tab PO SCH (11:01)
[2019-04-26] MEDS: Magnesium Oxide 400 MG Tab PO SCH ×3 (11:01→20:44)
[2019-04-26] MEDS: levETIRAcetam 500 MG Tab PO SCH ×2 (11:02→20:43)
[2019-04-26] MEDS: Isosorbide Mononitrate 30 MG Tab.ER PO SCH (11:02)
[2019-04-26] MEDS: Gabapentin 300 MG Cap PO SCH ×2 (11:03→20:44)
[2019-04-26] MEDS: Levothyroxine 112 MCG Tab PO SCH (11:03)
[2019-04-26] MEDS: Citalopram 20 MG Tab PO SCH (11:03)
[2019-04-26] MEDS: Fluticasone Propionate Nasal Spray 16 GM Bottle NASBOTH SCH ×2 (11:04→20:44)
[2019-04-26] MEDS: Lactobacillus Rhamnosus GG (Probiotic) Cap PO SCH (11:05)
[2019-04-26] MEDS: Finasteride 5 MG Tab PO SCH (20:43)
[2019-04-26] MEDS: Acetaminophen 500 MG Tab PO PRN (20:48)
[2019-04-27 08:03] LABS: ANION GAP 13.1 mmol/L (10-20)
[2019-04-27] MEDS: Isosorbide Mononitrate 30 MG Tab.ER PO SCH (08:31)
[2019-04-27] MEDS: Gabapentin 300 MG Cap PO SCH ×2 (08:31→20:00)
[2019-04-27] MEDS: Citalopram 20 MG Tab PO SCH (08:31)
[2019-04-27] MEDS: Magnesium Oxide 400 MG Tab PO SCH ×3 (08:31→21:02)
[2019-04-27] MEDS: Lactobacillus Rhamnosus GG (Probiotic) Cap PO SCH (08:31)
[2019-04-27] MEDS: Ferrous Sulfate 325 MG Tab PO SCH (08:31)
[2019-04-27] MEDS: Levothyroxine 112 MCG Tab PO SCH (08:32)
[2019-04-27] MEDS: levETIRAcetam 500 MG Tab PO SCH ×2 (08:33→21:01)
[2019-04-27] MEDS: Fluticasone Propionate Nasal Spray 16 GM Bottle NASBOTH SCH ×2 (08:34→21:01)
[2019-04-27] MEDS: Omeprazole 20 MG Cap.CR PO SCH ×2 (08:37→16:40)
[2019-04-27] MEDS: Sodium Chloride 0.9% 1,000 ML IV SCH (08:43)
--- NOTE | 2019-04-27 10:06 | PN ---
Progress Note for ERAN RODRIGUEZ Date: 04/27/2019 Room #: VM.202 SUBJECTIVE: This is hospital day #3 on an 88-year-old admitted with a complicated urinary tract infection and weakness. The patient also has increasing anemia due to hematuria. Hemoglobin down to 6.3 this morning. He has had transfusion previously. We discussed that and he will get another one today. He is also getting more puffy, especially in the arms from the IV fluids, but he has not been short of breath. He denies any abdominal pain. He denies any back pain. He does have some pain in his elbow, looks like there were some IV attempts there. Otherwise, there is some difficulty with urine output overnight despite attempts for flushing. He was only draining through the urethra. This morning, they were able to get a clot out and he has now drained over 200 of urine immediately, which is still bloody. The patient has not been on deep vein thrombosis prophylaxis due to active hematuria. He does have a known history of metastatic prostate cancer. He was getting some therapies through Home Health still at his assisted living. The patient is also on day #3 IV Cipro. Culture is showing gram negatives. OBJECTIVE: Vital Signs: His temperature is 97.3. No fever in the last 24 hours. Weight is 80.9 kg, pulse 70, blood pressure 154/65, respiratory rate is 14, O2 of 95% on room air. General: He is in no acute distress. Heart: Regular rate and rhythm with murmur and occasional extra beat. Lungs: Lung sounds are clear to auscultation bilaterally without crackles or wheezes. Abdomen: Mildly distended over the right, however, he has shifted that way, suprapubic in place. It is nontender. Extremities: Warm and dry. He has no edema over the legs. He does have some just trace edema over both hands. Mental Status: He is more alert today. He recognizes people. He is answering questions appropriately. He also did not require any Seroquel overnight. LABORATORY DATA: White count 9.9, normal now; hemoglobin 6.3; platelets 246. Sodium 137, potassium 4.1, chloride 105, bicarb 23, BUN 26, creatinine 2.4, glucose 101, calcium 9, phosphorus 3.1, albumin 2.2. ASSESSMENT AND PLAN: 1. Acute complicated urinary tract infection with the patient with suprapubic catheter, now day #3 of Cipro, culture should be coming back soon with the organism. He has been afebrile and symptomatically improving. 2. Generalized weakness and deconditioning related to the acute infection. We will get therapies involved tomorrow, PT, not OT per family request. 3. Delirium due to acute illness. He did get one dose of Seroquel, but he seems to be improving now. 4. Acute on chronic renal failure. Creatinine has stayed the same. Could be due to some difficulty with emptying the bladder and poor oral intake. At this point, we will switch IV fluids over to blood and see how he does. 5. Acute on chronic anemia. We will transfuse him 2 units of packed red blood cells today. 6. Underlying Parkinson's. 7. Underlying metastatic prostate cancer to the bone. 8. Underlying anxiety, on citalopram. 9. Multiple other comorbidities like coronary artery disease, chronic diastolic heart failure, cognitive dysfunction, and hypothyroidism, all of which are stable. PLAN: At this point, the patient will continue acute cares. We will continue IV Cipro. We will transfuse 2 units of blood today. We will repeat lab work tomorrow. He also had some slightly low magnesium, but he is on oral replacement, so we will repeat that as well. I also did discuss Palliative Care with his daughter Tiffany. MARCOS: 04/27/2019 09:19:44 MODL: 04/27/2019 09:58:36 /[id number] ELZA
[2019-04-27] MEDS ORDERED: Furosemide 20 MG/2 ML VIAL IVPUSH ONE (12:00)
--- NOTE | 2019-04-27 14:28 | PCM.SN ---
- Free Text/Narrative Note: I forgot to add to my progress note that patient significantly positive fluid balance from yesterday and first day the IN's were not appropriately charted. His arms are a little puffy and therefore I am adding some IV lasix 20 between blood transfusions in an effort to stimulate his kidneys and pull off some fluids.
[2019-04-27] MEDS: Acetaminophen 500 MG Tab PO PRN (14:38)
[2019-04-27] MEDS: Ciprofloxacin in D5W 200 MG in Premix Bag 1 BAG IV SCH ×2 (17:34)
[2019-04-27] MEDS: Finasteride 5 MG Tab PO SCH (21:04)
[2019-04-28] MEDS: Omeprazole 20 MG Cap.CR PO SCH ×2 (06:07→16:31)
[2019-04-28 07:44] LABS: ANION GAP 10.8 mmol/L (10-20)
[2019-04-28] MEDS: Fluticasone Propionate Nasal Spray 16 GM Bottle NASBOTH SCH ×2 (08:10→19:24)
[2019-04-28] MEDS: Gabapentin 300 MG Cap PO SCH ×2 (08:11→19:24)
[2019-04-28] MEDS: levETIRAcetam 500 MG Tab PO SCH ×2 (08:11→19:23)
[2019-04-28] MEDS: Lactobacillus Rhamnosus GG (Probiotic) Cap PO SCH (08:12)
[2019-04-28] MEDS: Citalopram 20 MG Tab PO SCH (08:12)
[2019-04-28] MEDS: Levothyroxine 112 MCG Tab PO SCH (08:12)
[2019-04-28] MEDS: Ferrous Sulfate 325 MG Tab PO SCH (08:12)
[2019-04-28] MEDS: Magnesium Oxide 400 MG Tab PO SCH ×3 (08:12→19:24)
[2019-04-28] MEDS: Isosorbide Mononitrate 30 MG Tab.ER PO SCH (08:13)
[2019-04-28] MEDS ORDERED: MAGNESIUM SULFATE IV ONE (09:30)
[2019-04-28] MEDS ORDERED: [UNRECOGNIZED DRUG - OTHER] IV ONE (09:30)
[2019-04-28] MEDS: Furosemide 20 MG Tab PO SCH (09:44)
--- NOTE | 2019-04-28 10:54 | PN ---
Progress Note for ERAN RODRIGUEZ Date: 04/28/2019 Room #: VM.202 SUBJECTIVE: The patient is an 88-year-old with his 4th hospitalization day for UTI with anemia due to blood loss from source. He did drop down his hemoglobin down to 6.3 and did require transfusion of 2 units yesterday. He is feeling tired today. He did receive some Lasix because of fluid retention afterwards. His daughter is present, offers no other concerns other than it is noted that he is weak. They were not receptive yet to Palliative Care comments. OBJECTIVE: Vital Signs: Objectively, his weight is 86 kg, which is up 6 kg from the day previously. His temperature is 36.8, pulse 69, blood pressure is 147/71 and had been up to the 160s yesterday. General: Objectively, he appears tired. Heart: Irregularly irregular. Lungs: Clear. Abdomen: Soft. Urine is light pink colored. LABORATORY STUDIES: His lab today shows his hemoglobin is up to 10.1, white blood cell count is 7.5, and platelets 237. Sodium 137, potassium 3.8, creatinine 2.1, GFR is 30, and magnesium is low at 1.5. IMPRESSION: 1. Urinary tract infection with Enterobacter cloacae. 2. Complicated urinary tract infection with chronic indwelling catheter. 3. Obstruction from catheter. 4. Chronic kidney disease. 5. Hypomagnesemia. 6. Fluid retention hypertension. PLAN: We will place the patient on scheduled dose of oral Lasix right now. We will give him some IV magnesium. He will continue to work with Physical Therapy, and plan is to have him eventually get back to home to assisted living. The patient usually has required some swing bed stays prior to be able to returning home. GM04/28/2019 08:55:02 MODL: 04/28/2019 10:46:02 /[id number]
[2019-04-28] MEDS: Ciprofloxacin in D5W 200 MG in Premix Bag 1 BAG IV SCH ×2 (12:09)
[2019-04-28] MEDS: Finasteride 5 MG Tab PO SCH (19:24)
[2019-04-29] MEDS: Ciprofloxacin in D5W 200 MG in Premix Bag 1 BAG IV SCH ×2 (05:16)
[2019-04-29] MEDS: Omeprazole 20 MG Cap.CR PO SCH (06:15)
[2019-04-29] MEDS: Levothyroxine 112 MCG Tab PO SCH (08:35)
[2019-04-29] MEDS: Fluticasone Propionate Nasal Spray 16 GM Bottle NASBOTH SCH (08:35)
[2019-04-29] MEDS: Furosemide 20 MG Tab PO SCH (08:36)
[2019-04-29] MEDS: levETIRAcetam 500 MG Tab PO SCH (08:36)
[2019-04-29] MEDS: Ferrous Sulfate 325 MG Tab PO SCH (08:36)
[2019-04-29] MEDS: Lactobacillus Rhamnosus GG (Probiotic) Cap PO SCH (08:36)
[2019-04-29] MEDS: Citalopram 20 MG Tab PO SCH (08:36)
[2019-04-29] MEDS: Gabapentin 300 MG Cap PO SCH (08:36)
[2019-04-29] MEDS: Isosorbide Mononitrate 30 MG Tab.ER PO SCH (08:38)
[2019-04-29] MEDS: Magnesium Oxide 400 MG Tab PO SCH (08:43)
--- NOTE | 2019-04-29 09:44 | PN ---
Progress Note for ERAN RODRIGUEZ Date: 04/29/2019 Room #: VM.202 SUBJECTIVE: He is feeling still somewhat tired. His urine is noted to become more yellow in color, more of an orangish coloration, now less red. He is still feeling fairly weak. Did mention that probably since he is only getting IV Cipro that it is time to place him on swing bed. His daughter was initially concerned because she thought "his labs are not stable yet," however, I stated they were stable from yesterday to today and we have not changed any medication other than we added furosemide to help with his blood pressure and fluid retention. OBJECTIVE: Vital Signs: His weight today is 81.1 kg, which is up 0.2 kg from 2 days ago. I believe his weight yesterday was an error. His blood pressure was initially 177/81, but had been down to 135/65, respiratory rate 16, sats are 95%. General: Appears tired. He is leaning toward 1 side. Heart: Irregularly irregular. Lungs: Clear. Abdomen: Soft. Abdomen is nontender. His urine is orangish in coloration. LABORATORY DATA: His lab shows his white blood cell count 6.3, hemoglobin stable at 10.2. Sodium was 138, potassium 4.0, creatinine stable at 2.1. GFR is 24.6. His proBNP is 5054. Magnesium is up to 2.0. IMPRESSION: 1. Complicated urinary tract infection with chronic indwelling catheter. 2. Hematuria. 3. Anemia secondary to genitourinary blood loss. 4. Chronic kidney disease, stable. 5. Hypertension. 6. Hypomagnesemia, improved. PLAN: We will place the patient on swing bed. We will switch him to oral Cipro. We will continue to monitor his labs. We will have Dr. Elizabeth Renteria follow him tomorrow on the weekend in my absence. The patient's daughter is not mentioned [facility]ci care and may need to also offer palliative care for the patient; however, she was not as interested in that. GM04/29/2019 08:55:41 MODL: 04/29/2019 09:37:36 /[id number]
[2019-04-29 10:41] VITALS: BP 133/64
[2019-04-29] MEDS ORDERED: levETIRAcetam 500 MG Tab PO SCH (12:00)
--- NOTE | 2019-04-29 18:23 | DISCH ---
Discharge admit to [facility] bed. PRIMARY DIAGNOSES: 1. Enterococcal faecalisis UTI . 2. Chronic complicated urinary tract infection due to indwelling catheter. 3. Urinary retention with chronic indwelling catheter. 4. Hematuria secondary to blood loss. 5. Symptomatic anemia requiring blood transfusion. 6. Hypomagnesemia. 7. Acute kidney injury. 8. Chronic kidney disease stage 3. 9. Metastatic prostate cancer. 10.Chronic anxiety disorder. 11.Hypertension. 12.Insomnia. SUMMARY OF ADMIT HISTORY AND PHYSICAL: The patient is an 88-year-old male who presented to the emergency room on 04/25/2019 and coming more fatigued, confused, weak for the past several days. He has a suprapubic catheter which was having problems with some drainage with clots being present. The urine was noted to be quite bloody. PHYSICAL EXAMINATION: On physical exam, he was noted to be weak, confused, disoriented, slow to respond. LABORATORY DATA: Showed white blood cell count 15.4, hemoglobin 8.6, platelets are 311 with 81 segs, 10 lymphocytes. INR 0.9. Sodium 134, potassium 4.4, BUN 24, creatinine 2.5, GFR 24, glucose 127, calcium 9.7, phosphorus 3.4, magnesium 1.7, AST 15, ALT 12. Troponin less than 0.017. CRP 5.4, albumin 3.4. Urine was cloudy. Specific gravity 1.015. Positive for blood, nitrites, large leukocyte esterase, had 50 to 75 red blood cells per high-powered field, 20 to 30 white blood cells per high-powered field. SUMMARY OF HOSPITAL COURSE: The patient was given IV hydration. He was given Rocephin 2 g IV push. He was admitted to acute care. To note, the patient did receive physical therapy. By next morning, the patient's code level status was code level 3 with no CPR noted. The patient was noted that he had this catheter last changed at the [facility] on 04/17/2019 and he did not have any infection present at that time. It was unclear if he was leaking around the catheter. The patient was switched from Rocephin to Cipro on second hospitalization day. His blood cultures were negative. The patient was noted then with lab work on 04/26/2019 that his hemoglobin had dropped down to 7.2 with creatinine slightly improved to 2.4. Lactic acid on admit was noted at 1.5, normal, on recheck was 0.7. His magnesium did drop down to 1.5. By 04/27/2019, his hemoglobin had dropped down to 6.3. He was symptomatic with this. Urine was still bloody and so he was given 2 units of packed RBC's for transfusion. Posttransfusion, he was noted to have some edema problems, so did receive some IV Lasix. It was noted that his blood pressure had gone up. By 04/28/2019, his hemoglobin had gone up to 10.1. He was feeling a little bit better. His catheter also had been unplugged with a clot and so his creatinine had gone down to 2.1. Magnesium was still low at 1.5, so then he was given IV magnesium for replacement. By 04/29/2019, his hemoglobin was staying stable at 10.2 with his potassium at 4.0, creatinine was stabilized at 2.1. GFR was 30, glucose 96, proBNP was 5054 which may have been worsened due to renal insufficiency. His magnesium was now up to 2.0. The patient was noted still to be quite weak, lethargic. He was able to swallow his pills. He comments that he was somewhat restless. He was felt to need physical therapy. Daughter was talked to about palliative care, but she was not interested in that. The patient to note was not placed on blood thinners because of bleeding that was causing symptoms. It was felt that the patient would benefit by being on swing bed for a few days. The patient's daughter expressed concerns about monitoring of his status and stated that still can be done on swing bed. DISCHARGE MEDICATIONS: Medications at the time of transfer are isosorbide mononitrate 30 mg 1 pill daily, Proscar 5 mg 1 pill at bedtime, levothyroxine 112 mcg half a pill daily, omeprazole 20 mg 1 pill twice a day, Flonase 1 spray b.i.d., milk of magnesia 30 mL daily p.r.n., vitamin D3 1000 units takes 2 pills daily, Casodex 50 mg daily, Tylenol 325 mg 3 pills 4 times a day as needed, ferrous sulfate 325 1 pill daily, docusate 100 mg 1 pill b.i.d. p.r.n., Seroquel 25 mg half a pill b.i.d. p.r.n. severe agitation (rarely used), magnesium oxide 400 mg 1 pill 3 times a day, Lexapro 10 mg 1 pill daily, probiotic 1 pill daily, gabapentin 300 mg b.i.d., Keppra 500 mg half a pill q.12 hours, simvastatin 10 mg 1 pill daily, Lasix 40 mg 1 pill daily. To note, the patient was switched from IV Cipro to oral Cipro on 04/29/2019 and was felt that he should have a total of 10 day course of therapy due to his chronic indwelling catheter. The patient will receive physical therapy while on swing bed. We will continue to monitor his renal function as well as his hemoglobin. He was encouraged to drink more fluids. Do anticipate the patient to continue to decline of health with this problem and will eventually from his current health problem. We will have Dr. Elizabeth Renteria follow the patient in my absence. Unless she is gone, then we will have the on-call provider manage the patient. GM04/29/2019 14:42:45 MODL: 04/29/2019 18:16:42 /[id number] MTDD
[2019-04-29] MEDS ORDERED: Ciprofloxacin 250 MG Tab PO SCH (20:00)
[2019-04-29] MEDS ORDERED: Non-Formulary Medication 1 Each (Gabapentin 300 MG) PO SCH (20:00)
[2019-04-29] MEDS ORDERED: Simvastatin 20 MG Tab PO SCH (20:00)
[2019-04-30] MEDS ORDERED: Cholecalciferol (Vitamin D3) 1,000 Unit Tab PO SCH (08:00)
== END 2019-04-29 10:54 | disposition swing bed (61) | DRG 699 ==
LOC: VM.ED 08:35 → VM.MS 10:02
PROVIDERS: ADMIT Internal Medicine; ATTEND Family Medicine
PROC: 30233N1 Transfusion of Nonautologous Red Blood Cells into Peripheral Vein, Percutaneous Approach (ICD-10-PCS; principal; 2019-04-27)
DX: R31.9 Hematuria, unspecified (principal); T83.518A Infection and inflammatory reaction due to other urinary catheter, initial encounter; N30.01 Acute cystitis with hematuria; N18.9 Chronic kidney disease, unspecified; R53.1 Weakness; N17.9 Acute kidney failure, unspecified; I13.0 Hypertensive heart and chronic kidney disease with heart failure and stage 1 through stage 4 chronic kidney disease, or unspecified chronic kidney disease; I50.32 Chronic diastolic (congestive) heart failure; I50.9 Heart failure, unspecified; F05 Delirium due to known physiological condition; C79.51 Secondary malignant neoplasm of bone; T83.098A Other mechanical complication of other urinary catheter, initial encounter; Y84.6 Urinary catheterization as the cause of abnormal reaction of the patient, or of later complication, without mention of misadventure at the time of the procedure; M18.9 Osteoarthritis of first carpometacarpal joint, unspecified; E83.42 Hypomagnesemia; I25.10 Atherosclerotic heart disease of native coronary artery without angina pectoris; I25.2 Old myocardial infarction; K59.00 Constipation, unspecified; G20 Parkinson's disease; I48.91 Unspecified atrial fibrillation; E03.9 Hypothyroidism, unspecified; N18.3 Chronic kidney disease, stage 3 (moderate); G47.00 Insomnia, unspecified; E55.9 Vitamin D deficiency, unspecified; R33.9 Retention of urine, unspecified; F41.9 Anxiety disorder, unspecified; R13.10 Dysphagia, unspecified; R00.1 Bradycardia, unspecified; E78.5 Hyperlipidemia, unspecified; Z90.49 Acquired absence of other specified parts of digestive tract; E86.0 Dehydration; D50.0 Iron deficiency anemia secondary to blood loss (chronic); Z85.46 Personal history of malignant neoplasm of prostate; Z93.6 Other artificial openings of urinary tract status; Z88.8 Allergy status to other drugs, medicaments and biological substances; Z88.5 Allergy status to narcotic agent; Z95.0 Presence of cardiac pacemaker; Z86.010 Personal history of colon polyps; Z79.890 Hormone replacement therapy; Z79.899 Other long term (current) drug therapy
CPT/HCPCS: 36415; 36430; 71045; 80048; 80053; 80069; 81001; 83605; 83735; 83880; 84100; 84484; 85025; 85610; 86140; 86850; 86900; 86901; 86920; 86922; 87040; 87086; 87088; 87186; 93005; 96361; 96374; 97162-GP; 99284-GF; 99285-25; A4217; A9270-GY; J0696; J0744; J1940; J3475; J7030; P9016

== ENCOUNTER 2019-04-29 10:55 | Inpatient (IN) | payer MEDICARE, OTHER ==
[2019-04-29] MEDS ORDERED: QUEtiapine 25 MG Tab PO PRN (12:09)
[2019-04-29] MEDS: Acetaminophen 325 MG Tab PO PRN ×2 (13:28→19:20)
[2019-04-29] MEDS: Omeprazole 20 MG Cap.CR PO SCH (17:43)
[2019-04-29] MEDS: Fluticasone Propionate Nasal Spray 16 GM Bottle NASBOTH SCH (19:18)
[2019-04-29] MEDS: Magnesium Oxide 400 MG Tab PO SCH (19:20)
[2019-04-29] MEDS: Finasteride 5 MG Tab PO SCH (19:21)
[2019-04-29] MEDS: levETIRAcetam 500 MG Tab PO SCH (19:21)
[2019-04-29] MEDS: Ciprofloxacin 250 MG Tab PO SCH (19:21)
[2019-04-29] MEDS: Gabapentin 300 MG Cap PO SCH (19:21)
[2019-04-29] MEDS: Simvastatin 10 MG Tab PO SCH (19:21)
[2019-04-30] MEDS: Levothyroxine 112 MCG Tab PO SCH (06:06)
[2019-04-30] MEDS: Omeprazole 20 MG Cap.CR PO SCH ×2 (06:06→17:30)
[2019-04-30] MEDS: Ciprofloxacin 250 MG Tab PO SCH ×2 (06:07→19:24)
[2019-04-30] MEDS: Cholecalciferol (Vitamin D3) 1,000 Unit Tab PO SCH (08:20)
[2019-04-30] MEDS: Isosorbide Mononitrate 30 MG Tab.ER PO SCH (08:20)
[2019-04-30] MEDS: Furosemide 20 MG Tab PO SCH (08:21)
[2019-04-30] MEDS: Citalopram 20 MG Tab PO SCH (08:21)
[2019-04-30] MEDS: Magnesium Oxide 400 MG Tab PO SCH ×3 (08:21→19:24)
[2019-04-30] MEDS: Gabapentin 300 MG Cap PO SCH ×2 (08:21→19:23)
[2019-04-30] MEDS: levETIRAcetam 500 MG Tab PO SCH ×2 (08:21→19:24)
[2019-04-30] MEDS: Ferrous Sulfate 325 MG Tab PO SCH (08:21)
[2019-04-30] MEDS: Fluticasone Propionate Nasal Spray 16 GM Bottle NASBOTH SCH ×2 (08:23→19:25)
[2019-04-30] MEDS: Lactobacillus Rhamnosus GG (Probiotic) Cap PO SCH (12:20)
[2019-04-30] MEDS: Simvastatin 10 MG Tab PO SCH (19:23)
[2019-04-30] MEDS: Docusate Sodium 100 MG Cap PO PRN (19:24)
[2019-04-30] MEDS: Finasteride 5 MG Tab PO SCH (19:24)
[2019-05-01] MEDS: Omeprazole 20 MG Cap.CR PO SCH ×2 (06:13→17:35)
[2019-05-01] MEDS: Levothyroxine 112 MCG Tab PO SCH (06:13)
[2019-05-01] MEDS: Ciprofloxacin 250 MG Tab PO SCH ×2 (06:13→19:55)
[2019-05-01] MEDS: Cholecalciferol (Vitamin D3) 1,000 Unit Tab PO SCH (07:49)
[2019-05-01] MEDS: Ferrous Sulfate 325 MG Tab PO SCH (07:49)
[2019-05-01] MEDS: levETIRAcetam 500 MG Tab PO SCH ×2 (07:49→19:56)
[2019-05-01] MEDS: Magnesium Oxide 400 MG Tab PO SCH ×3 (07:49→19:56)
[2019-05-01] MEDS: Gabapentin 300 MG Cap PO SCH ×2 (07:49→19:56)
[2019-05-01] MEDS: Furosemide 20 MG Tab PO SCH (07:50)
[2019-05-01] MEDS: Isosorbide Mononitrate 30 MG Tab.ER PO SCH (07:51)
[2019-05-01] MEDS: Citalopram 20 MG Tab PO SCH (07:51)
[2019-05-01] MEDS: Magnesium Hydroxide 400 MG/5 ML Susp 30 ML Cup PO PRN (07:54)
[2019-05-01] MEDS: Fluticasone Propionate Nasal Spray 16 GM Bottle NASBOTH SCH ×2 (07:59→19:55)
[2019-05-01] MEDS: Acetaminophen 325 MG Tab PO PRN ×2 (09:31→19:55)
[2019-05-01] MEDS: Lactobacillus Rhamnosus GG (Probiotic) Cap PO SCH (12:14)
[2019-05-01] MEDS: Simvastatin 10 MG Tab PO SCH (19:56)
[2019-05-01] MEDS: Finasteride 5 MG Tab PO SCH (19:56)
[2019-05-02] MEDS: Acetaminophen 325 MG Tab PO PRN ×3 (06:36→19:39)
[2019-05-02] MEDS: Ciprofloxacin 250 MG Tab PO SCH ×2 (06:37→19:40)
[2019-05-02] MEDS: Levothyroxine 112 MCG Tab PO SCH (06:37)
[2019-05-02] MEDS: Omeprazole 20 MG Cap.CR PO SCH ×2 (06:37→16:57)
[2019-05-02 06:50] LABS: ANION GAP 11.2 mmol/L (10-20)
[2019-05-02] MEDS: Magnesium Oxide 400 MG Tab PO SCH ×3 (08:23→19:40)
[2019-05-02] MEDS: Gabapentin 300 MG Cap PO SCH ×2 (08:23→19:41)
[2019-05-02] MEDS: Docusate Sodium 100 MG Cap PO PRN ×2 (08:23→12:22)
[2019-05-02] MEDS: Ferrous Sulfate 325 MG Tab PO SCH (08:23)
[2019-05-02] MEDS: levETIRAcetam 500 MG Tab PO SCH ×2 (08:23→19:41)
[2019-05-02] MEDS: Magnesium Hydroxide 400 MG/5 ML Susp 30 ML Cup PO PRN (08:23)
[2019-05-02] MEDS: Furosemide 20 MG Tab PO SCH (08:23)
[2019-05-02] MEDS: Cholecalciferol (Vitamin D3) 1,000 Unit Tab PO SCH (08:23)
[2019-05-02] MEDS: Citalopram 20 MG Tab PO SCH (08:24)
[2019-05-02] MEDS: Isosorbide Mononitrate 30 MG Tab.ER PO SCH (08:24)
[2019-05-02] MEDS: Fluticasone Propionate Nasal Spray 16 GM Bottle NASBOTH SCH ×2 (08:24→19:42)
[2019-05-02] MEDS: Lactobacillus Rhamnosus GG (Probiotic) Cap PO SCH (12:21)
--- NOTE | 2019-05-02 13:41 | PCM.SN ---
- Free Text/Narrative Note: Patient seen today to check his rash just some fine redness on the palms and soles of his feel. He denies pain or itching. I don't think it is a drug rash. I advise to just keep monitoring it.
[2019-05-02] MEDS: Finasteride 5 MG Tab PO SCH (19:40)
[2019-05-02] MEDS: Simvastatin 10 MG Tab PO SCH (19:41)
[2019-05-03] MEDS: Levothyroxine 112 MCG Tab PO SCH (06:46)
[2019-05-03] MEDS: Ciprofloxacin 250 MG Tab PO SCH ×2 (06:47→20:55)
[2019-05-03] MEDS: Acetaminophen 325 MG Tab PO PRN ×3 (06:47→20:54)
[2019-05-03] MEDS: Omeprazole 20 MG Cap.CR PO SCH ×2 (06:48→17:35)
[2019-05-03] MEDS: Cholecalciferol (Vitamin D3) 1,000 Unit Tab PO SCH (07:57)
[2019-05-03] MEDS: Fluticasone Propionate Nasal Spray 16 GM Bottle NASBOTH SCH ×2 (07:58→20:56)
[2019-05-03] MEDS: Furosemide 20 MG Tab PO SCH (07:58)
[2019-05-03] MEDS: Citalopram 20 MG Tab PO SCH (07:59)
[2019-05-03] MEDS: Ferrous Sulfate 325 MG Tab PO SCH (07:59)
[2019-05-03] MEDS: Gabapentin 300 MG Cap PO SCH ×2 (07:59→20:55)
[2019-05-03] MEDS: Magnesium Oxide 400 MG Tab PO SCH ×3 (07:59→20:56)
[2019-05-03] MEDS: levETIRAcetam 500 MG Tab PO SCH ×2 (08:10→20:56)
[2019-05-03] MEDS: Isosorbide Mononitrate 30 MG Tab.ER PO SCH (08:19)
[2019-05-03] MEDS: Lactobacillus Rhamnosus GG (Probiotic) Cap PO SCH (12:01)
[2019-05-03] MEDS: Finasteride 5 MG Tab PO SCH (20:55)
[2019-05-03] MEDS: Simvastatin 10 MG Tab PO SCH (20:55)
[2019-05-04] MEDS: Acetaminophen 325 MG Tab PO PRN ×3 (07:04→19:27)
[2019-05-04] MEDS: Levothyroxine 112 MCG Tab PO SCH (07:04)
[2019-05-04] MEDS: Ciprofloxacin 250 MG Tab PO SCH ×2 (07:05→19:26)
[2019-05-04] MEDS: Omeprazole 20 MG Cap.CR PO SCH ×2 (07:05→16:48)
[2019-05-04] MEDS: Fluticasone Propionate Nasal Spray 16 GM Bottle NASBOTH SCH ×2 (08:00→19:25)
[2019-05-04] MEDS: levETIRAcetam 500 MG Tab PO SCH ×2 (08:04→19:26)
[2019-05-04] MEDS: Magnesium Oxide 400 MG Tab PO SCH ×3 (08:05→19:26)
[2019-05-04] MEDS: Isosorbide Mononitrate 30 MG Tab.ER PO SCH (08:06)
[2019-05-04] MEDS: Ferrous Sulfate 325 MG Tab PO SCH (08:07)
[2019-05-04] MEDS: Citalopram 20 MG Tab PO SCH (08:07)
[2019-05-04] MEDS: Gabapentin 300 MG Cap PO SCH ×2 (08:07→19:26)
[2019-05-04] MEDS: Cholecalciferol (Vitamin D3) 1,000 Unit Tab PO SCH (08:07)
[2019-05-04] MEDS: Furosemide 20 MG Tab PO SCH (08:08)
[2019-05-04] MEDS: Lactobacillus Rhamnosus GG (Probiotic) Cap PO SCH (12:32)
[2019-05-04] MEDS: Finasteride 5 MG Tab PO SCH (19:25)
[2019-05-04] MEDS: Simvastatin 10 MG Tab PO SCH (19:26)
[2019-05-05] MEDS: Levothyroxine 112 MCG Tab PO SCH (06:12)
[2019-05-05] MEDS: Omeprazole 20 MG Cap.CR PO SCH (06:12)
[2019-05-05 06:16] VITALS: BP 145/64
[2019-05-05] MEDS: Fluticasone Propionate Nasal Spray 16 GM Bottle NASBOTH SCH (07:53)
[2019-05-05] MEDS: Ferrous Sulfate 325 MG Tab PO SCH (07:55)
[2019-05-05] MEDS: Magnesium Oxide 400 MG Tab PO SCH (07:55)
[2019-05-05] MEDS: Citalopram 20 MG Tab PO SCH (07:55)
[2019-05-05] MEDS: Furosemide 20 MG Tab PO SCH (07:55)
[2019-05-05] MEDS: Isosorbide Mononitrate 30 MG Tab.ER PO SCH (07:55)
[2019-05-05] MEDS: Cholecalciferol (Vitamin D3) 1,000 Unit Tab PO SCH (07:55)
[2019-05-05] MEDS: Gabapentin 300 MG Cap PO SCH (07:55)
[2019-05-05] MEDS: levETIRAcetam 500 MG Tab PO SCH (07:56)
[2019-05-05 09:38] LABS: ANION GAP 11.5 mmol/L (10-20)
--- NOTE | 2019-05-05 10:20 | PN ---
Progress Note for ERAN RODRIGUEZ Date: 05/04/2019 Room #: VM.202 SUBJECTIVE: The patient is back to his baseline, still slightly weak with transfers, but is not stable over the weekend. To note, family has been very resistant to consider palliative care and so they prefer, to [facility] instead of [facility], but they will talk about palliative care services. Daughter is present in the room when I visited the patient. OBJECTIVE: Vital Signs: His weight is 79.8 kg, which is down 2.3 kg from admission and down 6 kg from maximum weight. His blood pressure this morning is 145/64. His respiratory rate 18, saturations are 96%. Heart: Irregularly irregular. Lungs: Clear. GENITOURINARY: Urine is clear. Psychiatric: He appears more brighter, more alert. LABORATORY DATA: Pending today. IMPRESSION: 1. Urinary tract infection complicated with Enterococcus faecalis. 2. Anemia secondary to blood loss. PLAN: We will discharge the patient home with [facility]. Face-to - face encounter was done today for [facility] and that patient cannot walk longer than 10 feet without assistance. He requires assistance to get to appointments in the hospital. The patient is weak and would benefit from strengthening; however, he is having gradual decline of his health and may need to be transitioned over to palliative care as he does have metastatic prostate cancer with bony metastasis as well as a chronic indwelling catheter, suprapubic due to bladder retention and with known frequent UTI. Conversation with Infectious Disease stated that not to place the patient on prophylactic antibiotic as it would make him be more prone to infections. Otherwise, we will continue the patient on Lasix at discharge to help with blood pressure. We will need to monitor his magnesium as he has had a little bit of looser stools and unclear if it is due to that. GM05/05/2019 08:47:05 MODL: 05/05/2019 09:42:10 /[id number] addendum Hgb 10.3, Potassium 4.5, Cr 2.2., GFR 23.6, Magnesium 2.1. MTDD
--- NOTE | 2019-05-06 08:12 | DISCH ---
PRIMARY DIAGNOSES: 1. Complicated urinary tract infection with chronic indwelling catheter. 2. Bladder retention with need for suprapubic catheter. 3. Anemia secondary to blood loss. 4. Metastatic prostate cancer. 5. Hypertension. 6. Chronic anxiety disorder. 7. Parkinson disorder. 8. Hypothyroidism. 9. Chronic kidney disease stage 4 with an exacerbation of chronic kidney disease. SUMMARY OF ADMIT HISTORY AND PHYSICAL: The patient is an 88-year-old male who was admitted on acute care on 04/25/2019 with fever and he was found to have Enterobacter cloacae UTI complicated with bladder infection and hematuria. To note, his hemoglobin had dropped down to 6.6 while on acute care. He did require transfusion of 2 units of packed RBCs. He did have problems with fluid retention after that and was placed on Lasix. Still his blood pressure continued to stay elevated, so he continued on Lasix throughout the swing bed. While on swing bed, he did get a little bit stronger with therapies, but did plateau. The patient had been checked for C. difficile, which was negative. To note, his hemoglobin at the time of going to swing bed was 10.2 and on 05/02/2019 it was 9.4. It is pending on 05/04/2019. His potassium on 05/02/2019 was 4.2. His creatinine on admission was 2.5 on 04/25/2019, it did improve to 1.9 on 05/01/2019, and on 05/02/2019 it was 2.1. The patient's proBNP as on 04/29/2019 was 5054. His magnesium was noted to be 1.7 on admission, did drop down to 1.5, and on 05/01/2019 it was up to 1.8. [id number] encounter was held for need for home health. The patient is very weak and deconditioned. He cannot walk more than 10 feet without assistance. He uses a wheeled walker. He would rely on others to get into the clinic for appointments. The patient does have a chronic indwelling suprapubic catheter. The patient would benefit from physical therapy to make him stronger. Nursing to evaluate his blood pressure since the Lasix was started to make sure he does not have problems with orthostatic hypotension. I will be monitoring his progress with home health. He chooses [facility]. DISCHARGE MEDICATIONS: Medications at the time of discharge will be on acetaminophen 325, 3 pills 4 times a day as needed; Casodex 50 mg 1 pill daily; vitamin D3 2000 units daily; docusate 100 mg 1 p.o. b.i.d. p.r.n.; Lexapro 10 mg daily; ferrous sulfate 325, 1 pill, breakfast; finasteride 5 mg 1 pill daily; Flonase 1 spray b.i.d. p.r.n. nasal congestion; furosemide 20 mg 1 pill daily; gabapentin 300 mg 1 p.o. b.i.d.; isosorbide mononitrate 30 mg daily; probiotic 1 pill daily; Keppra 500 mg, he takes 250 mg q.12 hours; levothyroxine 112 mcg, takes half a pill daily; milk of magnesia 30 mg daily p.r.n.; magnesium oxide 400 mg 1 pill 3 times a day; omeprazole 20 mg 1 pill twice a day; Seroquel 25 mg half a pill b.i.d. p.r.n. severe agitation; simvastatin 20 mg tablet, takes 10 mg at bedtime. To note, the patient will follow up to see me in 2 weeks' time in the clinic. He will follow up with his urologist for his catheter changes. Do anticipate the patient to continue to deteriorate from his health and require recurrent admission as well as most likely will need to be placed on hospice care in the near future due to his progressive metastatic prostate cancer with continued decline in blood loss from his chronic indwelling catheter. GM05/05/2019 08:54:24 MODL: 05/06/2019 04:09:39 /[id number] 05/05/19 lab showed Hgb 10.3, WBC 7.3, Na 139, K 4.5, Cr 2.2, GFR 23.5, Mag 2.1. MTDD
== END 2019-05-05 10:45 | disposition home health service (06) | DRG 948 ==
LOC: VM.MS 10:55
PROVIDERS: ADMIT Family Medicine; ATTEND Family Medicine
DX: R53.1 Weakness (principal); D62 Acute posthemorrhagic anemia; N39.0 Urinary tract infection, site not specified; N18.4 Chronic kidney disease, stage 4 (severe); T83.511D Infection and inflammatory reaction due to indwelling urethral catheter, subsequent encounter; B95.2 Enterococcus as the cause of diseases classified elsewhere; C61 Malignant neoplasm of prostate; I12.9 Hypertensive chronic kidney disease with stage 1 through stage 4 chronic kidney disease, or unspecified chronic kidney disease; F41.9 Anxiety disorder, unspecified; G20 Parkinson's disease; E03.9 Hypothyroidism, unspecified; R33.9 Retention of urine, unspecified; G47.00 Insomnia, unspecified
CPT/HCPCS: 36415; 80048; 83735; 85025; 97110-GP; 97530-GP; A9270-GY

== ENCOUNTER 2019-05-11 14:04 | Inpatient (IN) | payer MEDICARE, OTHER ==
[2019-05-11] MEDS ORDERED: Sodium Chloride 0.9% 1,000 ML IV ONE (15:03)
[2019-05-11] MEDS ORDERED: Morphine 2 MG/ML Syringe IVPUSH ONE (15:27)
[2019-05-11 15:51] LABS: CHLORIDE,CL 101 mmol/L (98-107); SODIUM,NA 137 mmol/L (136-145)
--- NOTE | 2019-05-11 15:52 | EDM.PDOC ---
ED HPI GENERAL MEDICAL PROBLEM - General Chief Complaint: Back Pain or Injury Stated Complaint: BLADDER INFECTION Time Seen by Provider: 05/11/19 14:51 Source of Information: Reports: Patient, Family History Limitations: Reports: No Limitations - History of Present Illness INITIAL COMMENTS - FREE TEXT/NARRATIVE: Patient comes in with complaints of lower back pain radiating to his abdomen. Was just discharged from [facility] on Sunday the after a five day acute stay for UTI. Family is concerned that this has not cleared. He has also fallen 2-3 times this last week. States this happened due to dizziness. Lives at [place] with his . Today he does have generalized weakness. Denies headache, neck pain, chest pain, no SOB. Denies nausea or vomiting. Does have suprapubic catheter. History of prostate cancer with metastasis to bone. Primary provider was contacted on Sunday. Family is persistent on admission. Onset: Gradual Duration: Getting Worse, Intermittent Location: Reports: Abdomen, Back, Generalized Quality: Reports: Sharp Severity: Moderate Worsens with: Reports: Movement Associated Symptoms: Reports: Syncope Trunk Pain Score (Numeric/FACES): 10 - Related Data Allergies Allergy/AdvReac Type Severity Reaction Status Date / Time lisinopril Allergy Cannot Verified 05/11/19 19:17 Remember selegiline [From Eldepryl] Allergy Cannot Verified 05/11/19 19:17 Remember YOSEF Inhibitors AdvReac Cough Verified 05/11/19 19:17 carbidopa [From Sinemet] AdvReac Hallucinati Verified 05/11/19 19:17 ons hydrocodone AdvReac Nausea and Verified 05/11/19 19:17 Vomiting levodopa [From Sinemet] AdvReac Hallucinati Verified 05/11/19 19:17 ons lorazepam [From Ativan] AdvReac Hallucinati Verified 05/11/19 19:17 ons oxycodone AdvReac Nausea and Verified 05/11/19 19:17 Vomiting pramipexole di-HCl AdvReac Hallucinati Verified 05/11/19 19:17 [From Mirapex] ons Home Meds: Home Meds Finasteride [Proscar] 5 mg PO BEDTIME 04/26/15 [History] Isosorbide Mononitrate [Imdur] 30 mg PO DAILY 04/26/15 [History] Levothyroxine Sodium [Synthroid] 56 mcg PO DAILY 04/26/15 [History] Fluticasone Propionate [Flonase] 1 spray NASBOTH BID 08/25/15 [History] Omeprazole 20 mg PO BID@0730,1700 08/25/15 [History] Cholecalciferol (Vitamin D3) [Vitamin D3] 2,000 units PO DAILY 05/04/18 [History ] Magnesium Hydroxide [Milk of Magnesia] 30 ml PO DAILY PRN 05/04/18 [History] Acetaminophen [Tylenol] 975 mg PO QID PRN 11/07/18 [History] Bicalutamide [Casodex] 50 mg PO DAILY 11/07/18 [History] Ferrous Sulfate 325 mg PO WITHBREAKFAST #30 tablet 11/17/18 [Rx] Docusate Sodium 100 mg PO BID PRN 12/15/18 [History] Magnesium Oxide 400 mg PO TID tablet 01/24/19 [Rx] QUEtiapine [SEROquel] 12.5 mg PO BID PRN 01/24/19 [History] Escitalopram [Lexapro] 10 mg PO BEDTIME 04/25/19 [History] L.acidoph,Paracasei, B.lactis [Probiotic] 1 cap PO DAILY 04/25/19 [History] Gabapentin [Neurontin] 300 mg PO BID 04/29/19 [History] Simvastatin 10 mg PO BEDTIME 04/29/19 [History] levETIRAcetam [Keppra] 250 mg PO Q12H 04/29/19 [History] Furosemide [Lasix] 20 mg PO DAILY #30 tablet 05/05/19 [Rx] Past Medical History HEENT History: Reports: Allergic Rhinitis Cardiovascular History: Reports: Afib, CAD, Heart Failure, Hypertension, ND, Pacemaker Gastrointestinal History: Reports: Chronic Constipation Genitourinary History: Reports: Renal Disease Neurological History: Reports: Brain Injury, Parkinson's, Other (See Below) Other Neuro History: blood clot removed from head s/p fall Endocrine/Metabolic History: Reports: Hypothyroidism, Vitamin D Deficiency Oncologic (Cancer) History: Reports: Prostate Other Dermatologic History: 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 - Past Surgical History Cardiovascular Surgical History: Reports: Pacer Male Surgical History: Reports: Suprapubic Catheter Placement Social & Family History - Family History Family Medical History: Noncontributory - Caffeine Use Caffeine Use: Reports: Coffee ED ROS GENERAL - Review of Systems Review Of Systems: See Below Constitutional: Reports: Weakness HEENT: Reports: No Symptoms Respiratory: Reports: No Symptoms Cardiovascular: Reports: No Symptoms Endocrine: Reports: Fatigue GI/Abdominal: Reports: Abdominal Pain : Reports: Pain (suprapubic catheter) Musculoskeletal: Reports: Back Pain Skin: Reports: No Symptoms Neurological: Reports: Syncope Psychiatric: Reports: No Symptoms Hematologic/Lymphatic: Reports: No Symptoms Immunologic: Reports: No Symptoms ED EXAM,LOWER BACK PAIN/INJURY - Physical Exam Exam: See Below Exam Limited By: No Limitations General Appearance: Alert, WD/WN, Mild Distress Eye Exam: Bilateral Eye: EOMI, Normal Inspection, PERRL Ears: Normal TMs Nose: Normal Inspection, Normal Mucosa, No Blood Throat/Mouth: Normal Inspection, Normal Lips, Normal Teeth, Normal Gums, Normal Oropharynx, Normal Voice, No Airway Compromise Head: Atraumatic, Normocephalic Neck: Normal Inspection, Supple, Non-Tender, Full Range of Motion Respiratory/Chest: No Respiratory Distress, Lungs Clear, Normal Breath Sounds, No Accessory Muscle Use, Chest Non-Tender Cardiovascular: Normal Peripheral Pulses, Regular Rate, Rhythm, No Edema, No Gallop, No JVD, No Murmur, No Rub GI/Abdominal: Normal Bowel Sounds, Soft, Non-Tender, No Organomegaly, No Distention, No Abnormal Bruit, No Mass Back Exam: Normal Inspection, Full Range of Motion, NT Extremities: Normal Inspection, Normal Range of Motion, Non-Tender, No Pedal Edema, Normal Capillary Refill Neurological: Alert, Normal Mood/Affect, CN II-XII Intact, No Motor/Sensory Deficits, Oriented x 3 Skin Exam: Ecchymosis (area of hematoma to posterior head from fall) Lymphatic: No Adenopathy Course - Vital Signs Last Recorded V/S: Last Vital Signs Temp 36.6 C 05/11/19 19:07 Pulse 78 05/11/19 19:07 Resp 16 05/11/19 19:07 BP 150/79 H 05/11/19 19:07 Pulse Ox 96 05/11/19 19:07 - Orders/Labs/Meds Orders: Active Orders 24 hr Category Date Time Status Sodium Chloride 0.9% [Saline Flush] Med 05/11/19 15:03 Active 10 ml FLUSH ASDIRECTED PRN Saline Lock Insert [OM.PC] Routine Oth 05/11/19 15:03 Ordered Medication Orders Sodium Chloride (Saline Flush) 10 ml FLUSH ASDIRECTED PRN PRN Reason: Keep Vein Open Tramadol HCl (Ultram) 50 mg PO Q6H PRN PRN Reason: Pain Last Admin: 05/11/19 20:13 Dose: 50 mg Labs: Laboratory Tests 05/11/19 05/11/19 05/11/19 Range/Units 15:00 15:10 15:10 WBC 8.2 (4.0-10.0) x10^3/uL RBC 3.13 L (4.5-6.0) x10^6/uL Hgb 9.7 L (14.0-18.0) g/dL Hct 30.6 L (40.0-52.0) % MCV 97.8 H (78.0-93.0) fL MCH 31.0 (26.0-32.0) pg MCHC 31.7 L (32.0-36.0) g/dL RDW Coeff of Erna 13.8 (10.0-15.0) % Plt Count 394 (130-400) x10^3/uL Add Manual Diff Yes Neutrophils % (Manual) 73 (50-80) % Band Neutrophils % 3 (0-6) % Lymphocytes % (Manual) 12 L (25-50) % Monocytes % (Manual) 5 (2-11) % Eosinophils % (Manual) 1 (0-4) % Metamyelocytes % 4 H (0) % Myelocytes % 2 H (0) % Platelet Estimate Adequate PT 10.4 (10.0-12.8) SEC INR 0.9 L (2.0-3.5) Sodium (136-145) mmol/L Potassium (3.5-5.1) mmol/L Chloride (98-107) mmol/L Carbon Dioxide (21-32) mmol/L Anion Gap (10-20) mmol/L BUN (7-18) mg/dL Creatinine (0.70-1.30) mg/dL Est Cr Clr Drug Dosing mL/min Estimated GFR (MDRD) Glucose (74-106) mg/dL Lactic Acid (0.4-2.0) mmol/L Calcium (8.5-10.1) mg/dL Corrected Calcium (8.5-10.1) mg/dL Total Bilirubin (0.2-1.0) mg/dL AST (15-37) U/L ALT (16-63) U/L Alkaline Phosphatase (46-116) U/L Troponin I (<=0.056) ng/mL NT-Pro-B Natriuret Pep (<=450) pg/mL Total Protein (6.4-8.2) g/dL Albumin (3.4-5.0) g/dL Globulin Albumin/Globulin Ratio Amylase (25-115) U/L Lipase (73-393) U/L Urine Color Yellow (YELLOW) Urine Appearance Cloudy H (CLEAR) Urine pH 5.0 (5.0-8.0) Ur Specific [place] 1.020 Urine Protein 100 H (NEGATIVE) mg/dL Urine Glucose (UA) Negative (NEGATIVE) mg/dL Urine Ketones Trace H (NEGATIVE) mg/dL Urine Occult Blood Large H (NEGATIVE) Urine Nitrite Negative (NEGATIVE) Urine Bilirubin Negative (NEGATIVE) Urine Urobilinogen 0.2 (0.2) EU/dL Ur Leukocyte Esterase Small H (NEGATIVE) Urine RBC 50-75 H (NOT SEEN) /HPF Urine WBC 10-20 H (NOT SEEN) /HPF Ur Squamous Epith Cells Few H (NEGATIVE) /HPF Urine Bacteria Rare (NEGATIVE) /HPF Urine Mucus Few H (NEGATIVE) /LPF 05/11/19 05/11/19 Range/Units 15:10 15:10 WBC (4.0-10.0) x10^3/uL RBC (4.5-6.0) x10^6/uL Hgb (14.0-18.0) g/dL Hct (40.0-52.0) % MCV (78.0-93.0) fL MCH (26.0-32.0) pg MCHC (32.0-36.0) g/dL RDW Coeff of Erna (10.0-15.0) % Plt Count (130-400) x10^3/uL Add Manual Diff Neutrophils % (Manual) (50-80) % Band Neutrophils % (0-6) % Lymphocytes % (Manual) (25-50) % Monocytes % (Manual) (2-11) % Eosinophils % (Manual) (0-4) % Metamyelocytes % (0) % Myelocytes % (0) % Platelet Estimate PT (10.0-12.8) SEC INR (2.0-3.5) Sodium 137 (136-145) mmol/L Potassium 4.6 (3.5-5.1) mmol/L Chloride 101 (98-107) mmol/L Carbon Dioxide 27 (21-32) mmol/L Anion Gap 13.6 (10-20) mmol/L BUN 24 H (7-18) mg/dL Creatinine 2.3 H (0.70-1.30) mg/dL Est Cr Clr Drug Dosing 22.48 mL/min Estimated GFR (MDRD) 27 Glucose 103 (74-106) mg/dL Lactic Acid 1.1 (0.4-2.0) mmol/L Calcium 9.6 (8.5-10.1) mg/dL Corrected Calcium 10.08 (8.5-10.1) mg/dL Total Bilirubin 0.2 (0.2-1.0) mg/dL AST 13 L (15-37) U/L ALT 13 L (16-63) U/L Alkaline Phosphatase 65 (46-116) U/L Troponin I < 0.017 (<=0.056) ng/mL NT-Pro-B Natriuret Pep 277 (<=450) pg/mL Total Protein 6.7 (6.4-8.2) g/dL Albumin 3.4 (3.4-5.0) g/dL Globulin 3.3 Albumin/Globulin Ratio 1.03 Amylase 64 (25-115) U/L Lipase 271 (73-393) U/L Urine Color (YELLOW) Urine Appearance (CLEAR) Urine pH (5.0-8.0) Ur Specific [place] Urine Protein (NEGATIVE) mg/dL Urine Glucose (UA) (NEGATIVE) mg/dL Urine Ketones (NEGATIVE) mg/dL Urine Occult Blood (NEGATIVE) Urine Nitrite (NEGATIVE) Urine Bilirubin (NEGATIVE) Urine Urobilinogen (0.2) EU/dL Ur Leukocyte Esterase (NEGATIVE) Urine RBC (NOT SEEN) /HPF Urine WBC (NOT SEEN) /HPF Ur Squamous Epith Cells (NEGATIVE) /HPF Urine Bacteria (NEGATIVE) /HPF Urine Mucus (NEGATIVE) /LPF Meds: Medications Generic Name Dose Route Start Last Admin Trade Name Freq PRN Reason Stop Dose Admin Sodium Chloride 10 ml 05/11/19 15:03 Saline Flush FLUSH ASDIRECTED PRN Keep Vein Open Tramadol HCl 50 mg 05/11/19 19:56 05/11/19 20:13 Ultram PO 50 mg Q6H PRN Administration Pain Discontinued Medications Generic Name Dose Route Start Last Admin Trade Name Gaudencio PRN Reason Stop Dose Admin Sodium Chloride 1,000 mls @ 999 mls/hr 05/11/19 15:03 05/11/19 15:11 Normal Saline IV 05/11/19 16:03 999 mls/hr ONETIME ONE Administration Morphine Sulfate 2 mg 05/11/19 15:27 05/11/19 16:47 Morphine IVPUSH 05/11/19 15:28 Not Given ONETIME ONE - Re-Assessments/Exams Free Text/Narrative Re-Assessment/Exam: 05/11/19 21:00 Patient admitted to observation. No new acute findings. Monitor his reaction to tramadol for pain. Departure - Departure Time of Disposition: 19:10 Disposition: Refer to Observation Condition: Fair Clinical Impression: Abdominal pain - Discharge Information *PRESCRIPTION DRUG MONITORING PROGRAM REVIEWED*: No *COPY OF PRESCRIPTION DRUG MONITORING REPORT IN PATIENT ROSAURA: No ED Communication - ED Communication Date/Time Date: 05/11/19 Time Called: 18:00 - Discussed Case With (1) Discussed Case With (1): Other Provider ([place] party demonstrator physician Dr. Azevedo was contacted and she did discuss with the patient and his daughter that there are no acute indications for admission. Will admit observation for administration of Tramadol for pain as daughter made it clear that if any problems were to arise from the pain medication she would return with him by calling 911. Was not receptive to counseling both by myself and Dr. Azevedo that he likely needs to transition to full nursing care and most likely hospice/ palliative care due to his terminal cancer diagnosis) - Problem List & Annotations (1) Abdominal pain SNOMED Code(s): 79259923 Code(s): R10.9 - UNSPECIFIED ABDOMINAL PAIN Status: Acute Priority: Low Current Visit: Yes Qualifiers: Abdominal location: lower abdomen, unspecified Qualified Code(s): R10.30 - Lower abdominal pain, unspecified - Problem List Review Problem List Initiated/Reviewed/Updated: Yes - My Orders Last 24 Hours: My Active Orders 05/11/19 15:03 Sodium Chloride 0.9% [Saline Flush] 10 ml FLUSH ASDIRECTED PRN Saline Lock Insert [OM.PC] Routine - Assessment/Plan Last 24 Hours: My Active Orders 05/11/19 15:03 Sodium Chloride 0.9% [Saline Flush] 10 ml FLUSH ASDIRECTED PRN Saline Lock Insert [OM.PC] Routine Assessment:: back pain abdominal pain Plan: Plan Admit observation for administration of pain medications. All testing resulted in no new acute pathology. Negative chest x-ray, negative lumbar and abdominal CT scans. Dr. Azevedo to converse with Dr. Bolden regarding transfer of care to him in the AM. Patient remained stable in the ER.
[2019-05-11 15:53] LABS: ANION GAP 13.6 mmol/L (10-20)
--- NOTE | 2019-05-11 16:34 | CT ---
[id number] CT/CT Head WO IV EXAM: CT Head WO IV CLINICAL DATA: PASSING OUT. COMPARISON STUDY: January 20, 2019 FINDINGS: Again identified are 2 right-sided che holes which are unchanged. No intracranial hemorrhage, extra-axial fluid collection, mass, or acute ischemia. Generalized parenchymal atrophy with scattered areas of nonspecific white matter disease, commonly seen as sequela of chronic microvascular ischemia. Soft tissues are unremarkable. Thickening of the ethmoid and sphenoid air cells. The remaining paranasal sinuses and mastoid air cells are well aerated and clear. IMPRESSION: No acute intracranial findings. Kunal Michael DO 05/11/19 [id number] Thank you for allowing us to participate in the care of your patient.
--- NOTE | 2019-05-11 16:37 | CT ---
[id number] CT/CT Lumbar Spine WO IV EXAM: AP AND LATERAL LUMBAR SPINE. INDICATION: Fall, back pain. COMPARISON: May 15, 2012 FINDINGS: No fracture or subluxation is seen. No evidence of compression deformity. The pedicles are intact. There is multilevel degenerative disc disease as well as facet arthropathy. At L4-L5 and L5-S1 there is disc osteophyte complex in conjunction with facet resulting in mild neuroforaminal stenosis bilaterally. No high-grade spinal canal or neuroforaminal stenosis. Bilateral renal cysts. Atherosclerotic calcifications of the aorta and its branches. IMPRESSION: NO ACUTE FRACTURE OR SUBLUXATION. Kunal Michael DO 05/11/19 [id number] Thank you for allowing us to participate in the care of your patient.
--- NOTE | 2019-05-11 17:57 | CT ---
[id number] CT/CT Abdomen Pelvis WO IV EXAM: CT Abdomen Pelvis WO IV CLINICAL DATA: ABDOMINAL DISTENSION. COMPARISON STUDY: January 19, 2019. FINDINGS: Dependent atelectasis at the lung bases. Coronary artery disease. Small hiatal hernia. Stable coarse calcification adjacent to the gallbladder fossa, similar to the termination. The gallbladder surgically absent. The liver, spleen, pancreas and left adrenal gland are unremarkable. Stable 2.0 cm hypodense nodule within the right adrenal gland. Numerous cysts of varying size and density throughout both kidneys. Largest cyst is on the left involving the superior pole and measures up to 9.0 cm in maximum dimension. Any of these cysts are hyperdense in nature with the largest within the right kidney measuring up to 2.6 cm which is not significantly changed. These likely represent hemorrhagic cysts. Underlying solid lesion is not completely excluded. Overall these have not significantly changed when compared to the prior study. Punctate nonobstructing renal calculi bilaterally. There again is mild thickening of the rectum with stranding within the mesorectum. This is not significantly changed compared to the prior study. Colonic diverticulosis without evidence of acute diverticulitis. No lymphadenopathy, free fluid, or pneumoperitoneum. Atherosclerotic calcifications of the aorta and its branches. There is a suprapubic catheter in place. The bladder is decompressed. Scattered changes of spondylosis the spine. No fracture or osseous lesion. IMPRESSION: No acute findings within the abdomen or pelvis to explain the patient's symptoms. Multiple chronic findings as described above. Kunal Michael DO 05/11/19 [id number] Thank you for allowing us to participate in the care of your patient.
[2019-05-11] MEDS ORDERED: traMADol 50 MG Tab PO PRN (19:56)
[2019-05-11] MEDS ORDERED: HYDROmorphone 1 MG/ML Syringe IVPUSH PRN (21:03)
[2019-05-11] MEDS ORDERED: Acetaminophen 325 MG Tab PO PRN (21:03)
[2019-05-11] MEDS ORDERED: Ondansetron 4 MG Tab.DIS PO PRN (21:03)
[2019-05-11] MEDS ORDERED: DOCUSATE SODIUM 100 MG PO PRN (21:06)
[2019-05-11] MEDS ORDERED: QUEtiapine 25 MG Tab PO PRN (21:06)
[2019-05-11] MEDS ORDERED: Simvastatin 10 MG Tab PO ONE (21:12)
[2019-05-11] MEDS: Magnesium Oxide 400 MG Tab PO SCH (22:06)
[2019-05-11] MEDS: Omeprazole 20 MG Cap.CR PO SCH (22:06)
[2019-05-11] MEDS: Docusate Sodium 100 MG Cap PO PRN (22:11)
[2019-05-11] MEDS: Acetaminophen 325 MG Tab PO PRN (22:15)
[2019-05-11] MEDS: levETIRAcetam 500 MG Tab PO SCH (22:16)
[2019-05-12] MEDS: Omeprazole 20 MG Cap.CR PO SCH ×2 (06:32→21:45)
[2019-05-12 07:15] LABS: ANION GAP 11.5 mmol/L (10-20)
[2019-05-12] MEDS ORDERED: Furosemide 20 MG Tab PO SCH (08:00)
[2019-05-12] MEDS: Magnesium Hydroxide 400 MG/5 ML Susp 30 ML Cup PO PRN (08:36)
[2019-05-12] MEDS ORDERED: tiZANidine 4 MG Tab PO PRN (08:51)
[2019-05-12] MEDS: traMADol 50 MG Tab PO SCH ×2 (10:00→21:49)
--- NOTE | 2019-05-12 10:00 | PN ---
Progress Note for ERAN RODRIGUEZ Date: 05/12/2019 Room #: VM.202 SUBJECTIVE: This is the patient's second day on observation. He was admitted yesterday with complaints of left lower abdominal pain, left rib pain. The patient had been discharged from swing bed on 05/05/2019, and apparently that evening when going to the bathroom, he got weak and fell out of his wheelchair and onto a cabinet. He did not have any bruising or anything, did not think much of it until yesterday, his pain became quite severe, sharp. His urine has been actually staying more clear yellow, no concerns for bloody, which is usually the sign when he has an infection. Yesterday, he had CT scans of his head, lumbar spine, and abdomen, which showed no acute disease or any source of pain. The patient's daughter, Ramiro, is present in the room today. They had refused physical therapy or assessment earlier this morning. The patient did receive tramadol, which did not help for his pain, but then he did receive some Dilaudid and that did help with this pain. However, he did not have any repeat dosing of that. The patient comments he does not want to go to the [facility] because he worries about finances of having his at assisted living as well as him at the Care Center. I also talked with daughter about which home health agency they are utilizing and because they have been certified under [facility] and he could not be picked up with [facility], however, [facility] was not going to be doing any services for patient, so daughter was somewhat frustrated as to not know which way to turn. Daughter wondered if his Lasix does make him orthostatic and lead to more dizziness for patient. OBJECTIVE: Vital Signs: His weight is 82.8 kg, which is up 2 kg from yesterday. His blood pressure is 128/63, pulse 75, temperature 36.6, respiratory rate is 18, sats are 93%. General: The patient is lying in bed. He is grimacing with pain. He points to his left lower abdomen. He cannot specify if it is bone versus muscle versus abdominal sort of pain. It is a sharp pain. He has had no rashes on his skin. Heart: Regular rate. Lungs: Diminished breath sounds. Abdomen: Bowel sounds are present. It is soft. There is no suprapubic guarding or tenderness. He is quite tender to palpation on his left lower ribcage area at about T9 to T10 on the mid axillary line. There is no bruising on the skin. No rashes over the skin. Extremities: Lower extremities are slender thin. Genitourinary: His urine is yellow, clear. LABORATORY DATA: Lab today shows that his hemoglobin was stable at 9.6, white blood cell count 6.7. Sodium 139, potassium 4.2, creatinine 2.0, BUN 21. Yesterday, his alkaline phosphatase was normal at 65. BNP was 277. Amylase 64, lipase 271. Urine had 50 to 20 red blood cells, 10 to 20 white blood cells, rare bacteria, few squamous epithelial cells. Urine culture was set up. IMPRESSION: 1. Severe left abdominal/chest wall pain, unclear etiology. 2. Known metastatic prostate cancer with bony mets. 3. Chronic kidney disease. 4. Hypertension. 5. Falls frequently. 6. Parkinson's. 7. Chronic anxiety disorder. PLAN: I visited with the patient and daughter about options. I would like to place him on scheduled tramadol, however, we are only able to use it twice a day because of his renal function. He still can have p.r.n. Dilaudid for pain. I would like to have him try to work with physical therapy. I did visit with his radiologist about reviewing his abdominal CT pictures to see if he could ascertain if there is a lower rib fracture. He could not tell on views obtained. He recommended getting plain rib films first of his chest and then if they show a fracture, fine. If not, then he may need CT of his chest. We will place him on some tizanidine p.r.n. for muscle spasms, some heat and cold therapy. We will have Account Services Coordinator work with the patient and family to discuss about discharge options if he needs to consider self-pay swing bed versus going to the longterm. I did encourage him to consider physical therapy again. GM05/12/2019 09:01:44 MODL: 05/12/2019 09:29:13 /[id number]
[2019-05-12] MEDS ORDERED: GABAPENTIN 600 MG PO SCH (10:15)
[2019-05-12] MEDS ORDERED: ESCITALOPRAM 10 MG PO SCH (10:15)
--- NOTE | 2019-05-12 10:22 | CR ---
[id number] RAD/RAD Ribs Left W PA Chest EXAM: RAD Ribs Left W PA Chest INDICATION: LEFT RIB PAIN. COMPARISON: None. DISCUSSION: Left chest wall cardiac conduction device. Cardiomediastinal silhouette is stable in size and contour. Elevation of the left hemidiaphragm. No infiltrate, effusion, pneumothorax, or edema. Pulmonary hyperinflation. There appear to be at least 2 age-indeterminate fractures of ribs 6 and 7 on the left. IMPRESSION: 2 age-indeterminate fractures of ribs 6 and 7 on the left. Kunal Michael DO 05/12/19 1021 Thank you for allowing us to participate in the care of your patient.
[2019-05-12] MEDS: Cholecalciferol (Vitamin D3) 1,000 Unit Tab PO SCH (11:10)
[2019-05-12] MEDS: Levothyroxine 112 MCG Tab PO SCH (11:10)
[2019-05-12] MEDS: Lactobacillus Rhamnosus GG (Probiotic) Cap PO SCH (11:10)
[2019-05-12] MEDS: Ferrous Sulfate 325 MG Tab PO SCH (11:12)
[2019-05-12] MEDS: Magnesium Oxide 400 MG Tab PO SCH ×3 (11:13→21:51)
[2019-05-12] MEDS: Docusate Sodium 100 MG Cap PO PRN (11:13)
[2019-05-12] MEDS: levETIRAcetam 500 MG Tab PO SCH ×3 (11:13→21:50)
[2019-05-12] MEDS: Isosorbide Mononitrate 30 MG Tab.ER PO SCH (11:14)
[2019-05-12] MEDS: Gabapentin 300 MG Cap PO SCH ×2 (11:15→21:49)
[2019-05-12] MEDS: amLODIPine 2.5 MG Tab PO SCH (11:16)
--- NOTE | 2019-05-12 11:17 | PCM.SN ---
- Free Text/Narrative Note: plain rib films showed [address] pt on acute to get schedule parenteral pain medication with dilaudid every 6 hrs.
[2019-05-12] MEDS: Fluticasone Propionate Nasal Spray 16 GM Bottle NASBOTH SCH ×2 (11:19→21:46)
[2019-05-12] MEDS: BICALUTAMIDE 50 MG PO SCH (11:21)
[2019-05-12] MEDS: HYDROmorphone 1 MG/ML Syringe IVPUSH SCH ×2 (11:22→19:06)
[2019-05-12] MEDS: Citalopram 20 MG Tab PO SCH (12:20)
[2019-05-12] MEDS ORDERED: Citalopram 20 MG Tab PO SCH (20:00)
[2019-05-12] MEDS: Acetaminophen 325 MG Tab PO PRN (21:47)
[2019-05-12] MEDS: Finasteride 5 MG Tab PO SCH (21:47)
[2019-05-12] MEDS: Simvastatin 10 MG Tab PO SCH (21:50)
[2019-05-13] MEDS: HYDROmorphone 1 MG/ML Syringe IVPUSH SCH ×3 (01:32→20:04)
[2019-05-13] MEDS: Sodium Chloride 0.9% 10 ML Syringe FLUSH PRN ×3 (06:59→20:09)
[2019-05-13] MEDS: Lactobacillus Rhamnosus GG (Probiotic) Cap PO SCH ×2 (07:57→22:05)
[2019-05-13] MEDS: levETIRAcetam 500 MG Tab PO SCH ×2 (07:57→19:53)
[2019-05-13] MEDS: Docusate Sodium 100 MG Cap PO PRN (07:57)
[2019-05-13] MEDS: BICALUTAMIDE 50 MG PO SCH (07:57)
[2019-05-13] MEDS: Fluticasone Propionate Nasal Spray 16 GM Bottle NASBOTH SCH ×2 (07:57→20:11)
[2019-05-13] MEDS: Omeprazole 20 MG Cap.CR PO SCH ×2 (07:57→18:17)
[2019-05-13] MEDS: traMADol 50 MG Tab PO SCH ×2 (07:58→19:56)
[2019-05-13] MEDS: Citalopram 20 MG Tab PO SCH (07:58)
[2019-05-13] MEDS: Isosorbide Mononitrate 30 MG Tab.ER PO SCH (07:58)
[2019-05-13] MEDS: Cholecalciferol (Vitamin D3) 1,000 Unit Tab PO SCH (07:58)
[2019-05-13] MEDS: Magnesium Oxide 400 MG Tab PO SCH ×3 (07:58→19:54)
[2019-05-13] MEDS: Gabapentin 300 MG Cap PO SCH ×2 (07:59→19:55)
[2019-05-13] MEDS: amLODIPine 2.5 MG Tab PO SCH (07:59)
[2019-05-13] MEDS: Ferrous Sulfate 325 MG Tab PO SCH (07:59)
[2019-05-13] MEDS: Levothyroxine 112 MCG Tab PO SCH (07:59)
[2019-05-13] MEDS ORDERED: Acetaminophen/HYDROcodone 325-5 MG Tab PO PRN (08:28)
[2019-05-13] MEDS ORDERED: Ciprofloxacin 250 MG Tab PO SCH (08:30)
[2019-05-13] MEDS: Docusate Sodium 100 MG Cap PO SCH (09:19)
--- NOTE | 2019-05-13 09:39 | PN ---
Progress Note for ERAN RODRIGUEZ Date: 05/13/2019 Room #: VM.202 SUBJECTIVE: This is the patient's third hospital day, second on acute care for fractured ribs with left-sided pain. The patient comments that his pain is better today, but he feels tired. He was placed on 4 times a day Dilaudid injections yesterday and plain chest x-ray did show 2 rib fractures of indeterminate length. He did not work with physical therapy yesterday due to pain, but hopefully, he will be agreeable to working today with physical therapy. They did meet with Auto Transmission Specialist yesterday to talk about discharge planning and are agreeable to considering going to the care home once that is needed. It is noted that the patient's urine culture is growing gram-negative rods. Yesterday, we did stop his Lasix and placed him on amlodipine for blood pressure control to help prevent orthostatic changes. He possibly has a little bit of a cough today. OBJECTIVE: Vital Signs: His weight is 78.8 kg today, which is down 1.1 kg from admission to the floor. Blood pressure is 112/60, pulse is 68, respirations are 14, saturations are 93%. General: The patient appears more comfortable, happy. He has a rib belt on as well as his neck in a neck collar. He has occasional cough. Heart: Irregularly irregular. Lungs: Diminished breath sounds on bases. Abdomen: Bowel sounds present and soft. There is slight abdominal distention. There is no tenderness as I palpated on his abdomen. LABORATORY DATA: No lab work was done today. IMPRESSION: 1. Two left rib fractures, acute with pain. 2. Pain. We will schedule parenteral pain control. 3. Complicated urinary tract infection with chronic indwelling catheter. 4. Chronic kidney disease. 5. Anemia secondary to blood loss. 6. Metastatic prostate cancer. 7. Anxiety disorder. 8. Parkinson disease. PLAN: We will add oral hydrocodone to see if the patient can tolerate this again in a small amount. We will reduce his scheduled Dilaudid to just twice a day to avoid somnolence. We will add incentive spirometry to help with breathing. We will also add a stool softener scheduled to help prevent constipation. He will work with therapies today. We will repeat lab work tomorrow. Depending on urine culture, we will determine if he can be continued on Cipro versus need an IV antibiotic and anticipate placement on swing bed in 2 days to help fine-tune pain control prior to going to the care home. GM05/13/2019 08:34:46 MODL: 05/13/2019 09:18:33 /[id number]
[2019-05-13] MEDS: Sulfamethoxazole/Trimethoprim 400-80 MG Tab PO SCH ×2 (14:51→19:55)
[2019-05-13] MEDS: cefTRIAXone 1 GM Vial IVPUSH SCH (14:52)
--- NOTE | 2019-05-13 17:47 | PCM.SN ---
- Free Text/Narrative Note: His urine culture is growing stenotrophomonas multifaca and streptococcus species. Will stop cipro as resistant to levaqin. Will use sulfa and rocpehin, until strep sensitivies return.
[2019-05-13] MEDS: Finasteride 5 MG Tab PO SCH (19:54)
[2019-05-13] MEDS: Simvastatin 10 MG Tab PO SCH (19:54)
[2019-05-14 07:29] LABS: ANION GAP 11.7 mmol/L (10-20)
[2019-05-14] MEDS: Omeprazole 20 MG Cap.CR PO SCH ×2 (07:56→17:05)
[2019-05-14] MEDS: traMADol 50 MG Tab PO SCH ×2 (07:56→20:57)
[2019-05-14] MEDS: Docusate Sodium 100 MG Cap PO SCH (07:57)
[2019-05-14] MEDS: Sulfamethoxazole/Trimethoprim 400-80 MG Tab PO SCH ×2 (07:57→20:58)
[2019-05-14] MEDS: Gabapentin 300 MG Cap PO SCH ×2 (07:57→20:56)
[2019-05-14] MEDS: Isosorbide Mononitrate 30 MG Tab.ER PO SCH (07:57)
[2019-05-14] MEDS: Levothyroxine 112 MCG Tab PO SCH (07:58)
[2019-05-14] MEDS: Citalopram 20 MG Tab PO SCH (07:58)
[2019-05-14] MEDS: Ferrous Sulfate 325 MG Tab PO SCH (07:58)
[2019-05-14] MEDS: levETIRAcetam 500 MG Tab PO SCH ×2 (07:58→20:58)
[2019-05-14] MEDS: HYDROmorphone 1 MG/ML Syringe IVPUSH SCH (07:58)
[2019-05-14] MEDS: Magnesium Oxide 400 MG Tab PO SCH ×3 (07:58→20:56)
[2019-05-14] MEDS: BICALUTAMIDE 50 MG PO SCH (08:00)
[2019-05-14] MEDS: Fluticasone Propionate Nasal Spray 16 GM Bottle NASBOTH SCH ×2 (08:00→20:54)
[2019-05-14] MEDS: Cholecalciferol (Vitamin D3) 1,000 Unit Tab PO SCH (08:01)
[2019-05-14] MEDS: amLODIPine 2.5 MG Tab PO SCH (08:01)
--- NOTE | 2019-05-14 09:08 | PN ---
Progress Note for ERAN RODRIGUEZ Date: 05/14/2019 Room #: VM.202 SUBJECTIVE: Today is the patient's 4th hospitalization day for acute pain due to multiple rib fractures, not controlled with oral pain medicine, with concurrent UTI. The patient has been doing better with scheduled pain shots. We reduced the scheduled pain shots. He has not taken any oral hydrocodone yet, but he has taken the tramadol. He says he feels good if he is just sitting, but it does hurt when he moves. He is wearing a rib belt. He has agreed to [facility] to [facility] His urine culture was showing both Stenotrophomonas maltophilia as well as Streptococcus species that was resistant to Levaquin, so we had stopped the Cipro yesterday and switched him to both Bactrim as well as Rocephin. The patient has not commented if he has less orthostatic changes since we have stopped his Lasix and switched him to Norvasc for blood pressure control. The patient has not had a bowel movement since he has been here. The patient does have milk of magnesia ordered p.r.n. if needed. OBJECTIVE: Vital Signs: His weight is 78.1 kg, which is down 0.7 kg from yesterday. His blood pressure is 116/49, pulse is 70, temperature 36.6, saturations are 93, and respiratory rate 16. Skin: [place], warm, and dry. Heart: Regular rate. Lungs: Rare inspiratory crackles, which clear with deep inspiration. Abdomen: Slightly distended. Bowel sounds are present. Extremities: Lower extremities, no edema. LABORATORY DATA: Urine is more deshawn colored today, a little bit darker than it had been. His lab today shows his hemoglobin is 9.3, which is stable; white blood cell count 6.2; platelets 319 with 63 segs, 25 lymphs. Sodium is 138; potassium is 4.7; creatinine is 2.1, which is stable; GFR is 30; calcium is 10. LFTs are normal. Albumin is 3.0. IMPRESSION: 1. Multiple rib fractures with acute pain. 2. Complicated urinary tract infection with chronic indwelling catheter. 3. Anemia secondary to blood loss. 4. Chronic kidney disease, stage 4. 5. Chronic anxiety disorder. PLAN: We will stop his scheduled Dilaudid shots now. He has p.r.n. Dilaudid, but I would like him to try the oral hydrocodone pills to see if this manages his pain. We will continue the Rocephin as well as the sulfa right now today. Hopefully, the urine sensitivities will come back with Streptococcal species today, and tomorrow anticipate that he will be either transitioned to [facility] if a bed is available versus go to swing bed. He has continued to receive physical therapy. GM05/14/2019 08:25:08 MODL: 05/14/2019 09:03:01 /[id number]
[2019-05-14] MEDS: Lactobacillus Rhamnosus GG (Probiotic) Cap PO SCH ×2 (11:03→21:02)
[2019-05-14] MEDS: Magnesium Hydroxide 400 MG/5 ML Susp 30 ML Cup PO PRN (12:21)
[2019-05-14] MEDS: cefTRIAXone 1 GM Vial IVPUSH SCH (13:57)
[2019-05-14] MEDS: Finasteride 5 MG Tab PO SCH (20:56)
[2019-05-14] MEDS: Simvastatin 10 MG Tab PO SCH (20:57)
[2019-05-15] MEDS: Acetaminophen 325 MG Tab PO PRN (02:57)
[2019-05-15] MEDS: Omeprazole 20 MG Cap.CR PO SCH (06:51)
[2019-05-15 07:00] VITALS: BP 136/64
[2019-05-15] MEDS: Gabapentin 300 MG Cap PO SCH (07:50)
[2019-05-15] MEDS: Ferrous Sulfate 325 MG Tab PO SCH (07:50)
[2019-05-15] MEDS: Magnesium Oxide 400 MG Tab PO SCH (07:50)
[2019-05-15] MEDS: Sulfamethoxazole/Trimethoprim 400-80 MG Tab PO SCH (07:51)
[2019-05-15] MEDS: levETIRAcetam 500 MG Tab PO SCH (07:51)
[2019-05-15] MEDS: Citalopram 20 MG Tab PO SCH (07:52)
[2019-05-15] MEDS: Docusate Sodium 100 MG Cap PO SCH (07:52)
[2019-05-15] MEDS: traMADol 50 MG Tab PO SCH (07:52)
[2019-05-15] MEDS: Levothyroxine 112 MCG Tab PO SCH (07:53)
[2019-05-15] MEDS: Fluticasone Propionate Nasal Spray 16 GM Bottle NASBOTH SCH (07:53)
[2019-05-15] MEDS: BICALUTAMIDE 50 MG PO SCH (07:54)
[2019-05-15] MEDS: Cholecalciferol (Vitamin D3) 1,000 Unit Tab PO SCH (07:56)
[2019-05-15] MEDS: Isosorbide Mononitrate 30 MG Tab.ER PO SCH (07:56)
[2019-05-15] MEDS: amLODIPine 2.5 MG Tab PO SCH (07:56)
--- NOTE | 2019-05-15 09:46 | PN ---
Progress Note for EARN RODRIGUEZ Date: 05/15/2019 Room #: VM.202 SUBJECTIVE: This is patient's 5th hospital day on acute care for rib pain and UTI. Daughter has noted that he did get a little bit confused last night. She was concerned that it might be due to his Rocephin antibiotics. He did not need any hydrocodone pills yesterday and so that would not be the source of his pain. He had received just a Dilaudid shot in the morning and then we had stopped it, and he did not have any p.r.n. doses of it. Otherwise, he is still weaker with moving around; does require a lot of encouragement. OBJECTIVE: Vital Signs: His vital signs show that his weight is 81.3 kg, which is up by about 3.7 kg from previous day. His blood pressure is 136/64, pulse is 74, respirations are 16, and saturations are 93. General: He is in the tub. He is appearing more alert. Heart: Regular rate. Lungs: Clear. Abdomen: Soft. He did not have any bowel results yesterday. LABORATORY DATA: Urine culture still pending. IMPRESSION: 1. Multiple rib fractures. 2. Urinary tract infection, complicated. 3. Chronic kidney disease. PLAN: We will place the patient on swing bed today. We will continue the Rocephin until we know the urine culture is back as I doubt that is causing the confusion and feel it is more related to the Dilaudid injections, and eventually, [facility]. GM05/15/2019 08:36:59 MODL: 05/15/2019 09:34:08 /[id number]
--- NOTE | 2019-05-16 07:58 | DISCH ---
SUMMARY OF ADMIT HISTORY AND PHYSICAL: An 88-year-old male presented to the emergency room on 05/11/2019 with a significant left-sided abdominal pain. He was a vague historian. He did admit to falling at home a few times a few days prior, was not noted to be feverish or chilled. He has known problems with multiple chronic bladder infections due to metastatic prostate cancer with chronic indwelling catheter. When seen in the emergency room, he was noted to have normal heart sounds, normal lungs sounds, abdomen with bowel sounds present. He had a hematoma in his posterior head related to fall. His vital signs shows blood pressure 150/79, pulse 78. Lab work shows white blood cell count 8.2, hemoglobin 9.7, platelets 394 with 73 segs, 3 bands, 12 lymphocytes. INR 0.9. Urine which was cloudy. Specific gravity 1.020, protein 100, large blood, trace ketones, negative nitrites, negative bilirubin, leukocyte esterase small, had 50 to 75 red blood cells, 10 to 20 white blood cells, rare bacteria, few squamous epithelial cells. Sodium is 137, potassium 4.6, creatinine 2.3 which is just slightly elevated from his baseline which is about 2.0. GFR 27, glucose 103, lactic acid 1.1, calcium 9.6, total bilirubin 0.2, AST 13, ALT 13, alkaline phosphatase 65. Troponin less than 0.017. ProBNP 277, albumin 3.4, amylase 64, lipase 271. SUMMARY OF HOSPITAL COURSE: The patient was initially placed on observation on 05/11/2019. However, he also had with ER workup, imaging of his head which was negative for any acute bleed. He had CT of his lumbar spine which was negative for fractures as well as CT of his abdomen and pelvis which did not show any acute pathology to account for pain that he was having. He was noted to have a large cyst on his left kidney which is unchanged in size and there are cysts on the right kidney, most likely hemorrhagic, thickening of the rectum with stranding in the mesorectum, not changed from previous study. Had diverticulosis noted, but no diverticulitis. No lymphadenopathy. No free fluid. No pneumoperitoneum. To note, on 05/12/2019, the patient had significant left-sided chest pain. On physical exam, he had plain films done that showed 2 rib fractures. The patient was then placed on acute care because of need for scheduled parenteral pain control as the patient was not moving around very well. He had many allergies. He was placed on Dilaudid on a scheduled basis. Also of note, because of concern with orthostatic changes and frequent falls, we stopped his Lasix for his blood pressure control and instead placed him on amlodipine. The patient was empirically started on Cipro and a urine culture was obtained because of concerns with bladder infections as he has had multiple bladder infections. Laboratory data was followed that showed his hemoglobin had dropped down to just 9.6 by 05/12/2019 and 9.3 by 05/14/2019. White blood cell count stayed normal. Potassium stayed normal. Creatinine had improved to 2.0. Lactic acid had not been repeated after initial 1 was done. LFTs in 05/14/2019 continued to stay normal. He did have a CRP done on 05/14/2019 which was normal at 0.2. Urine culture did come back on 05/11/2019 showing Stenotrophomonas maltophilia as well as an Enterococcus species. Because the Stenotrophomonas was resistant to Levaquin, his Cipro was stopped and he was instead placed on Rocephin as well as Bactrim single strength. The patient received physical therapy for strengthening. Because of concerns with continued weakness as well as frequent falls, the patient was felt in need of permanent placement in a longterm and [employer] were involved with the family to have these discussions. However, a longterm bed was not available at the time patient needed transition from acute care, so he was then placed on swing bed. The patient had been placed on Dilaudid scheduled 4 times a day as well as tramadol twice a day with only twice a day due to reduced renal function which did seem to control his pain fairly well. The Dilaudid was reduced to then twice a day and then just once a day. The patient never did take hydrocodone orally and was felt to get by with plain Tylenol. He was noted to have just a little bit of confusion on the night of 05/14/2019, but that has seemingly resolved. Daughter was concerned about confusion related to Rocephin and I stated that was doubtful. MEDICATIONS AT TRANSFER: Imdur 30 mg daily, Proscar 5 mg at bedtime, levothyroxine 56 mcg daily, omeprazole 20 mg 1 p.o. b.i.d., Flonase 1 puff b.i.d., milk of magnesia 30 mL daily p.r.n., vitamin D 2000 units daily, Casodex 50 mg daily, Tylenol 325 takes 3 pills 4 times a day as needed, ferrous sulfate 325 one pill daily, Seroquel 25 mg half a pill twice a day p.r.n. severe agitation, magnesium oxide 400 mg 1 pill 3 times a day, Lexapro 10 mg at bedtime, probiotic capsules 1 daily, gabapentin 300 mg b.i.d., Keppra 500 mg he takes half a pill q.12 hours, simvastatin 10 mg at bedtime, amlodipine 2.5 mg 1 pill daily, docusate 100 mg 1 pill every 48 hours. DISCHARGE DIAGNOSES: 1. Multiple rib fractures on the left side involving ribs 6 and 7. 2. Complicated urinary tract infection with Stenotrophomonas maltophilia and enterococcal species. 3. Contusion to his head. 4. Hypertension with concerns with orthostatic changes. 5. Frequent falls. 6. Chronic anxiety disorder. 7. Hypothyroidism. 8. Parkinsonism. 9. Chronic kidney disease, stage 3. 10.Metastatic prostate cancer with bony metastasis. 11.Chronic indwelling catheter due to urinary retention. 12.Hypomagnesemia. 13.Deconditioning. 14.Mild cognitive dysfunction. 15.History of subdural hematoma. 16.History of seizure disorder. PLAN: The patient will be placed on swing bed for continued therapies for strengthening. We will continue his IV Rocephin until it is known about his sensitivities for his urine culture. The patient's code level status at the time of transfer is do not resuscitate, do not intubate. To note, his daughter, Tiffany, was present at his side with multiple questions. At the time of transfer, his heart was regular rate, lungs were clear, abdomen soft. Urine was draining darker orangish urine. I do anticipate the patient to continue with decline of health because of his metastatic prostate cancer as well as advancing age and that he would return for recurrent problems. To note, the patient is not anticoagulated from his chronic atrial fibrillation, he has had in the past because of frequent falls. He had SCDs placed for DVT prophylaxis while on Acute Care. GM05/15/2019 14:10:46 MODL: 05/15/2019 18:39:59 /[id number]
== END 2019-05-15 08:41 | disposition swing bed (61) | DRG 690 ==
LOC: VM.ED 14:04 → VM.MS 18:43 → OBSVTOIN 05-12 10:41
PROVIDERS: ADMIT Nurse Practitioner Family; ATTEND Family Medicine
DX: N30.00 Acute cystitis without hematuria (principal); S22.42XA Multiple fractures of ribs, left side, initial encounter for closed fracture; R10.9 Unspecified abdominal pain; N18.4 Chronic kidney disease, stage 4 (severe); C79.51 Secondary malignant neoplasm of bone; I13.0 Hypertensive heart and chronic kidney disease with heart failure and stage 1 through stage 4 chronic kidney disease, or unspecified chronic kidney disease; C61 Malignant neoplasm of prostate; Z66 Do not resuscitate; G20 Parkinson's disease; R29.6 Repeated falls; I48.91 Unspecified atrial fibrillation; F41.9 Anxiety disorder, unspecified; S22.49XA Multiple fractures of ribs, unspecified side, initial encounter for closed fracture; W05.0XXA Fall from non-moving wheelchair, initial encounter; Z91.81 History of falling; K59.09 Other constipation; B96.5 Pseudomonas (aeruginosa) (mallei) (pseudomallei) as the cause of diseases classified elsewhere; B95.4 Other streptococcus as the cause of diseases classified elsewhere; Y92.231 Patient bathroom in hospital as the place of occurrence of the external cause; D50.0 Iron deficiency anemia secondary to blood loss (chronic); N28.1 Cyst of kidney, acquired; K57.30 Diverticulosis of large intestine without perforation or abscess without bleeding; Z93.6 Other artificial openings of urinary tract status; W19.XXXA Unspecified fall, initial encounter; Z88.5 Allergy status to narcotic agent; Z79.890 Hormone replacement therapy; Z88.8 Allergy status to other drugs, medicaments and biological substances; Z79.899 Other long term (current) drug therapy; I25.10 Atherosclerotic heart disease of native coronary artery without angina pectoris; N18.9 Chronic kidney disease, unspecified; I50.9 Heart failure, unspecified; I25.2 Old myocardial infarction; Z95.0 Presence of cardiac pacemaker; E03.9 Hypothyroidism, unspecified; K59.00 Constipation, unspecified; E55.9 Vitamin D deficiency, unspecified; Z85.828 Personal history of other malignant neoplasm of skin
CPT/HCPCS: 36415; 70450; 71100-LT; 72131; 74176; 80048; 80053; 81001; 82150; 83605; 83690; 83880; 84484; 85025; 85610; 86140; 87086; 87088; 87186; 93005; 96365; 96366; 97110-GP; 97161-GP; 99285-25; A9270-GY; J0696; J1170; J7030

== ENCOUNTER 2019-05-15 08:42 | Inpatient (IN) | payer MEDICARE, OTHER ==
[2019-05-15] MEDS ORDERED: Sodium Phosphate,Monobasic/Sodium Phosphate,Dibasic Enema 133 ML Bottle RECTAL ONE (11:36)
[2019-05-15] MEDS ORDERED: tiZANidine 4 MG Tab PO PRN (11:45)
[2019-05-15] MEDS ORDERED: Acetaminophen 325 MG Tab PO PRN (11:45)
[2019-05-15] MEDS ORDERED: QUEtiapine 25 MG Tab PO PRN (11:45)
[2019-05-15] MEDS ORDERED: Ondansetron 4 MG Tab.DIS PO PRN (11:45)
[2019-05-15] MEDS ORDERED: Sodium Chloride 0.9% 10 ML Syringe FLUSH PRN ×2 (11:45)
[2019-05-15] MEDS ORDERED: Magnesium Hydroxide 400 MG/5 ML Susp 30 ML Cup PO PRN (11:45)
[2019-05-15] MEDS ORDERED: Acetaminophen/HYDROcodone 325-5 MG Tab PO PRN (11:45)
[2019-05-15] MEDS: Magnesium Oxide 400 MG Tab PO SCH ×2 (12:32→19:35)
[2019-05-15] MEDS: cefTRIAXone 1 GM Vial IVPUSH SCH (14:27)
[2019-05-15] MEDS ORDERED: Bisacodyl 10 MG Supp RECTAL ONE (15:29)
[2019-05-15] MEDS: Omeprazole 20 MG Cap.CR PO SCH (16:32)
[2019-05-15] MEDS: Fluticasone Propionate Nasal Spray 16 GM Bottle NASBOTH SCH (19:33)
[2019-05-15] MEDS: Sulfamethoxazole/Trimethoprim 400-80 MG Tab PO SCH (19:34)
[2019-05-15] MEDS: traMADol 50 MG Tab PO SCH (19:34)
[2019-05-15] MEDS: levETIRAcetam 500 MG Tab PO SCH (19:34)
[2019-05-15] MEDS: Finasteride 5 MG Tab PO SCH (19:35)
[2019-05-15] MEDS: Simvastatin 10 MG Tab PO SCH (19:35)
[2019-05-15] MEDS: Gabapentin 300 MG Cap PO SCH (19:35)
[2019-05-15] MEDS ORDERED: traMADol 50 MG Tab PO SCH (20:00)
[2019-05-15] MEDS: Lactobacillus Rhamnosus GG (Probiotic) Cap PO SCH (21:22)
[2019-05-16] MEDS: Omeprazole 20 MG Cap.CR PO SCH ×3 (06:19→16:57)
[2019-05-16 07:08] LABS: ANION GAP 13.5 mmol/L (10-20)
[2019-05-16] MEDS: Fluticasone Propionate Nasal Spray 16 GM Bottle NASBOTH SCH ×2 (07:31→19:23)
[2019-05-16] MEDS: BICALUTAMIDE 50 MG PO SCH (07:32)
[2019-05-16] MEDS: Cholecalciferol (Vitamin D3) 25 MCG Tab PO SCH (07:32)
[2019-05-16] MEDS: Ferrous Sulfate 325 MG Tab PO SCH (07:33)
[2019-05-16] MEDS: Gabapentin 300 MG Cap PO SCH ×2 (07:33→19:22)
[2019-05-16] MEDS: traMADol 50 MG Tab PO SCH ×2 (07:33→19:22)
[2019-05-16] MEDS: Sulfamethoxazole/Trimethoprim 400-80 MG Tab PO SCH ×2 (07:34→19:21)
[2019-05-16] MEDS: levETIRAcetam 500 MG Tab PO SCH ×2 (07:34→19:23)
[2019-05-16] MEDS: Isosorbide Mononitrate 30 MG Tab.ER PO SCH (07:34)
[2019-05-16] MEDS: Magnesium Oxide 400 MG Tab PO SCH ×3 (07:34→19:21)
[2019-05-16] MEDS: Docusate Sodium 100 MG Cap PO SCH (07:34)
[2019-05-16] MEDS: Levothyroxine 112 MCG Tab PO SCH (07:34)
[2019-05-16] MEDS: Citalopram 20 MG Tab PO SCH (07:34)
[2019-05-16] MEDS: amLODIPine 2.5 MG Tab PO SCH (07:36)
[2019-05-16] MEDS: Lactobacillus Rhamnosus GG (Probiotic) Cap PO SCH ×2 (11:07→22:23)
[2019-05-16] MEDS: cefTRIAXone 1 GM Vial IVPUSH SCH (15:54)
[2019-05-16] MEDS: Amoxicillin 500 MG Cap PO SCH ×2 (15:57→19:21)
[2019-05-16] MEDS: Finasteride 5 MG Tab PO SCH (19:22)
[2019-05-16] MEDS: Simvastatin 10 MG Tab PO SCH (19:22)
[2019-05-17] MEDS: Omeprazole 20 MG Cap.CR PO SCH ×2 (06:35→17:29)
[2019-05-17] MEDS: traMADol 50 MG Tab PO SCH ×2 (08:51→19:21)
[2019-05-17] MEDS: levETIRAcetam 500 MG Tab PO SCH ×2 (08:52→19:20)
[2019-05-17] MEDS: Ferrous Sulfate 325 MG Tab PO SCH (08:52)
[2019-05-17] MEDS: Docusate Sodium 100 MG Cap PO SCH (08:52)
[2019-05-17] MEDS: Citalopram 20 MG Tab PO SCH (08:53)
[2019-05-17] MEDS: Magnesium Oxide 400 MG Tab PO SCH ×3 (08:53→19:20)
[2019-05-17] MEDS: Amoxicillin 500 MG Cap PO SCH ×2 (08:53→19:19)
[2019-05-17] MEDS: Sulfamethoxazole/Trimethoprim 400-80 MG Tab PO SCH ×2 (08:54→19:19)
[2019-05-17] MEDS: Isosorbide Mononitrate 30 MG Tab.ER PO SCH (08:54)
[2019-05-17] MEDS: Levothyroxine 112 MCG Tab PO SCH (08:54)
[2019-05-17] MEDS: Gabapentin 300 MG Cap PO SCH ×2 (08:55→19:20)
[2019-05-17] MEDS: amLODIPine 2.5 MG Tab PO SCH (08:56)
[2019-05-17] MEDS: Cholecalciferol (Vitamin D3) 25 MCG Tab PO SCH (08:57)
[2019-05-17] MEDS: Fluticasone Propionate Nasal Spray 16 GM Bottle NASBOTH SCH ×2 (08:58→19:19)
[2019-05-17] MEDS: BICALUTAMIDE 50 MG PO SCH (08:58)
[2019-05-17] MEDS: Lactobacillus Rhamnosus GG (Probiotic) Cap PO SCH ×2 (09:00→22:31)
[2019-05-17] MEDS: Acetaminophen 325 MG Tab PO PRN ×2 (12:33→19:20)
[2019-05-17] MEDS: Simvastatin 10 MG Tab PO SCH (19:19)
[2019-05-17] MEDS: Finasteride 5 MG Tab PO SCH (19:20)
[2019-05-18] MEDS: Omeprazole 20 MG Cap.CR PO SCH ×2 (06:46→17:12)
[2019-05-18] MEDS: Ferrous Sulfate 325 MG Tab PO SCH (07:45)
[2019-05-18] MEDS: Citalopram 20 MG Tab PO SCH (07:45)
[2019-05-18] MEDS: Gabapentin 300 MG Cap PO SCH ×2 (07:46→19:47)
[2019-05-18] MEDS: Amoxicillin 500 MG Cap PO SCH ×2 (07:46→19:47)
[2019-05-18] MEDS: levETIRAcetam 500 MG Tab PO SCH ×2 (07:46→19:46)
[2019-05-18] MEDS: Magnesium Oxide 400 MG Tab PO SCH ×3 (07:46→19:47)
[2019-05-18] MEDS: Docusate Sodium 100 MG Cap PO SCH (07:46)
[2019-05-18] MEDS: Cholecalciferol (Vitamin D3) 25 MCG Tab PO SCH (07:47)
[2019-05-18] MEDS: Isosorbide Mononitrate 30 MG Tab.ER PO SCH (07:47)
[2019-05-18] MEDS: Sulfamethoxazole/Trimethoprim 400-80 MG Tab PO SCH ×2 (07:48→19:47)
[2019-05-18] MEDS: Levothyroxine 112 MCG Tab PO SCH (07:48)
[2019-05-18] MEDS: amLODIPine 2.5 MG Tab PO SCH (07:49)
[2019-05-18] MEDS: Acetaminophen 325 MG Tab PO PRN ×2 (07:51→19:46)
[2019-05-18] MEDS: BICALUTAMIDE 50 MG PO SCH (07:56)
[2019-05-18] MEDS: Fluticasone Propionate Nasal Spray 16 GM Bottle NASBOTH SCH ×2 (07:57→19:48)
[2019-05-18] MEDS: traMADol 50 MG Tab PO SCH ×2 (08:02→19:48)
[2019-05-18] MEDS: Lactobacillus Rhamnosus GG (Probiotic) Cap PO SCH ×2 (11:06→21:20)
[2019-05-18] MEDS: Finasteride 5 MG Tab PO SCH (19:47)
[2019-05-18] MEDS: Simvastatin 10 MG Tab PO SCH (19:48)
[2019-05-19] MEDS: Omeprazole 20 MG Cap.CR PO SCH ×2 (06:16→07:53)
[2019-05-19] MEDS: BICALUTAMIDE 50 MG PO SCH (07:51)
[2019-05-19] MEDS: Fluticasone Propionate Nasal Spray 16 GM Bottle NASBOTH SCH (07:51)
[2019-05-19] MEDS: Isosorbide Mononitrate 30 MG Tab.ER PO SCH (07:52)
[2019-05-19] MEDS: Citalopram 20 MG Tab PO SCH (07:52)
[2019-05-19] MEDS: Magnesium Oxide 400 MG Tab PO SCH (07:52)
[2019-05-19] MEDS: Sulfamethoxazole/Trimethoprim 400-80 MG Tab PO SCH (07:52)
[2019-05-19] MEDS: Levothyroxine 112 MCG Tab PO SCH (07:52)
[2019-05-19] MEDS: levETIRAcetam 500 MG Tab PO SCH (07:52)
[2019-05-19] MEDS: Ferrous Sulfate 325 MG Tab PO SCH (07:52)
[2019-05-19] MEDS: Docusate Sodium 100 MG Cap PO SCH (07:52)
[2019-05-19] MEDS: Gabapentin 300 MG Cap PO SCH (07:52)
[2019-05-19] MEDS: Cholecalciferol (Vitamin D3) 25 MCG Tab PO SCH (07:53)
[2019-05-19] MEDS: Amoxicillin 500 MG Cap PO SCH (07:53)
[2019-05-19] MEDS: traMADol 50 MG Tab PO SCH (07:53)
[2019-05-19] MEDS: amLODIPine 2.5 MG Tab PO SCH (07:53)
[2019-05-19 07:54] VITALS: BP 152/68
[2019-05-19] MEDS: Acetaminophen 325 MG Tab PO PRN (08:02)
--- NOTE | 2019-05-19 09:06 | PN ---
Progress Note for ERAN RODRIGUEZ Date: 05/19/2019 Room #: VM.202 SUBJECTIVE: The patient is feeling stronger. He is more alert. It is noted that his urine has a little more bloody in coloration. His urine sensitivities have come back for bladder infection. He does have an enterococcal infection, which is sensitive to ampicillin. The patient has been placed on amoxicillin and he is on Bactrim for his Stenotrophomonas infection, and plans are today for him to go to the [facility]. OBJECTIVE: Vital Signs: His weight has not been checked. His temperature is 36.4, blood pressure is 152/68, respiratory rate is 18, and saturations are 100%. General: He is alert, smiling, bright. Heart: Regular rate. Lungs: Clear to auscultation. Abdomen: Soft. Urine is bloody. No lab was done today. He had had lab on 05/16/2019, which showed hemoglobin 9.2, potassium 4.5, creatinine 2.3, magnesium 2.2, CRP 0.5, and TSH 2.37. IMPRESSION: 1. Multiple rib fractures on the left. 2. Urinary tract infection complicated with indwelling catheter with Stenotrophomonas and enterococcal species. 3. Chronic kidney disease. 4. Anemia secondary to blood loss and chronic kidney disease. 5. Chronic anxiety disorder. 6. Parkinson's. PLAN: The patient will continue both antibiotics until 05/22/2019. He had been switched from Lasix to amlodipine for blood pressure control. He has not been taking any tramadol nor Tylenol with Codeine for pain control and just using plain Tylenol. He will go to the [facility]. His code level status is do not resuscitate/do not intubate at the time of discharge. GM05/19/2019 08:25:49 MODL: 05/19/2019 08:53:34 /[id number]
--- NOTE | 2019-05-20 09:19 | DISCH ---
PRIMARY DIAGNOSES: 1. Multiple rib fractures on the left involving ribs 6 and 7. 2. Complicated urinary tract infection with Stenotrophomonas maltophilia and enterococcal species. 3. Contusion to head. 4. Hypertension with concerns with orthostatic changes. 5. Frequent falls. 6. Chronic anxiety disorder. 7. Chronic kidney disease. 8. Hypothyroidism. 9. Parkinson disorder. 10.Metastatic prostate cancer with bony mets. 11.Chronic indwelling catheter due to urinary retention. 12.Hypomagnesemia. 13.Deconditioning. 14.Mild cognitive dysfunction. SUMMARY OF SWING BED COURSE: The patient had been admitted to acute care on 05/11/2019 with complaints of flank pain, abdominal pain, and felt to be an abdominal process, placed on initially observation, but then rib x-rays that were done on 05/12/2019 confirmed rib fractures. He was placed on acute care for pain control and then placed on swing bed on 05/15/2019 because of continued need for physical therapy as well as antibiotic coverage until exact entities were known. The patient was noted to have renal function stay about the same. He did have some mild constipation. He did have some confusion from pain medications, which did improve as he was able to get off his pain medications. To note, he had been switched from Lasix for blood pressure control to amlodipine because of less risk of orthostatic changes. He was placed on docusate daily. He was able to be transitioned down to just Tylenol on a scheduled basis. His last lab work that was done on 05/16/2019 showed white blood cell count 7.2, hemoglobin 9.2, platelets 297. Sodium 138, potassium 4.5, creatinine 2.3, GFR 27, BUN 26, glucose 95, calcium 9.9, magnesium 2.2. CRP 0.5. TSH 2.37. His blood pressure at the time of discharge was 152/68, pulse 73, temperature is 36, respiratory rate is 18, sats are 100%. Objectively, he was alert, pleasant to visit with. Heart: Irregularly irregular (note patient is not anticoagulated with Coumadin due to frequent falls). Lungs: Clear. Abdomen: Soft. Urine was noted to be light red in color, blood tinged, which is chronic for patient. His code level status is do not resuscitate, do not intubate. Medications at the time of discharge will be isosorbide mononitrate 60 mg, half a pill daily; Proscar 5 mg 1 pill at bedtime; levothyroxine 112 mcg, half a pill daily; omeprazole 20 mg 1 pill twice a day; Flonase 1 spray b.i.d.; milk of magnesia 30 mL daily p.r.n.; vitamin D 2000 units daily; Casodex 50 mg 1 pill daily; Tylenol 325, he will take 975, 4 times a day; probiotic 1 capsule b.i.d.; Seroquel 6.25 mg b.i.d. p.r.n. severe agitation; magnesium oxide 400 mg 1 pill 3 times a day; Lexapro 10 mg daily; gabapentin 300 mg b.i.d.; Keppra 250 mg q.12 hours; simvastatin 20 mg, half a tablet daily; docusate 100 mg 1 pill daily; amlodipine 2.5 mg 1 pill daily; Septra 1 pill b.i.d. for 5 tablets; amoxicillin 500 mg 1 pill b.i.d. for 5 tablets. Do anticipate the patient to continue to get weak from his prostate cancer and deconditioning. He also is at risk for frequent infections. The patient will continue to follow with the [place] for his general health care in terms of his prostate cancer. The patient will need to have catheter cares done per protocol from [place]. He will have physical therapy and occupational therapy. GM05/19/2019 10:25:48 MODL: 05/20/2019 07:21:10 /[id number]
== END 2019-05-19 09:25 | DRG 699 ==
LOC: VM.MS 08:42
PROVIDERS: ADMIT Family Medicine; ATTEND Family Medicine
DX: T83.511A Infection and inflammatory reaction due to indwelling urethral catheter, initial encounter (principal); S22.42XA Multiple fractures of ribs, left side, initial encounter for closed fracture; C79.51 Secondary malignant neoplasm of bone; N39.0 Urinary tract infection, site not specified; F41.9 Anxiety disorder, unspecified; N18.9 Chronic kidney disease, unspecified; E03.9 Hypothyroidism, unspecified; G20 Parkinson's disease; C61 Malignant neoplasm of prostate; Z66 Do not resuscitate; R33.9 Retention of urine, unspecified; E83.42 Hypomagnesemia; F09 Unspecified mental disorder due to known physiological condition; K59.00 Constipation, unspecified; N28.1 Cyst of kidney, acquired; B96.5 Pseudomonas (aeruginosa) (mallei) (pseudomallei) as the cause of diseases classified elsewhere; B95.2 Enterococcus as the cause of diseases classified elsewhere; D63.1 Anemia in chronic kidney disease; D50.0 Iron deficiency anemia secondary to blood loss (chronic); Y84.6 Urinary catheterization as the cause of abnormal reaction of the patient, or of later complication, without mention of misadventure at the time of the procedure; K57.30 Diverticulosis of large intestine without perforation or abscess without bleeding; S00.93XA Contusion of unspecified part of head, initial encounter
CPT/HCPCS: 36415; 80048; 83735; 84443; 85025; 86140; 97110-GP; A9270-GY; J0696

== ENCOUNTER 2019-07-15 13:39 | Emergency (ER) | payer OTHER, MEDICARE ==
[2019-07-15 13:58] VITALS: BP 133/58
[2019-07-15] MEDS ORDERED: Sodium Chloride 0.9% 10 ML Syringe FLUSH PRN (14:27)
[2019-07-15] MEDS ORDERED: Sodium Chloride 0.9% 1,000 ML IV SCH (14:30)
--- NOTE | 2019-07-15 14:34 | EDM.PDOC ---
ED HPI GENERAL MEDICAL PROBLEM - General Chief Complaint: Syncope Stated Complaint: ER Time Seen by Provider: 07/15/19 13:48 Source of Information: Reports: Patient, Family, Mcc Records, Old Records, RN - History of Present Illness INITIAL COMMENTS - FREE TEXT/NARRATIVE: Andi is an 88 y/o male who lives at a local retirement. He was receiving restorative therapy today and he had to use the bathroom. He was on the toilet and had a large BM and then got very dizzy and passed out. He has been getting progressively weaker over the last few months secondary to his chronic illnesses and advancing age. His PCP was notified of the syncopal episode and blood was drawn. Apparently a hgb of 5.[address] Bolden was notified he was sent to the ER for further evaluation and possible transfusion. His son-in-law is here with him in the ER. Posterior Head Pain Score (Numeric/FACES): 2 - Related Data Allergies Allergy/AdvReac Type Severity Reaction Status Date / Time lisinopril Allergy Cannot Verified 05/11/19 19:17 Remember selegiline [From Eldepryl] Allergy Cannot Verified 05/11/19 19:17 Remember YOSEF Inhibitors AdvReac Cough Verified 05/11/19 19:17 carbidopa [From Sinemet] AdvReac Hallucinati Verified 05/11/19 19:17 ons hydrocodone AdvReac Nausea and Verified 05/11/19 19:17 Vomiting levodopa [From Sinemet] AdvReac Hallucinati Verified 05/11/19 19:17 ons lorazepam [From Ativan] AdvReac Hallucinati Verified 05/11/19 19:17 ons oxycodone AdvReac Nausea and Verified 05/11/19 19:17 Vomiting pramipexole di-HCl AdvReac Hallucinati Verified 05/11/19 19:17 [From Mirapex] ons Home Meds: Home Meds Finasteride [Proscar] 5 mg PO BEDTIME 04/26/15 [History] Isosorbide Mononitrate [Imdur] 30 mg PO DAILY 04/26/15 [History] Levothyroxine Sodium [Synthroid] 56 mcg PO DAILY 04/26/15 [History] Fluticasone Propionate [Flonase] 1 spray NASBOTH BID 08/25/15 [History] Omeprazole 20 mg PO BID@0730,1700 08/25/15 [History] Cholecalciferol (Vitamin D3) [Vitamin D3] 2,000 units PO DAILY 05/04/18 [History ] Magnesium Hydroxide [Milk of Magnesia] 30 ml PO DAILY PRN 05/04/18 [History] Acetaminophen [Tylenol] 975 mg PO QID PRN 11/07/18 [History] Bicalutamide [Casodex] 50 mg PO DAILY 11/07/18 [History] Ferrous Sulfate 325 mg PO WITHBREAKFAST #30 tablet 11/17/18 [Rx] Magnesium Oxide 400 mg PO TID tablet 01/24/19 [Rx] QUEtiapine [SEROquel] 12.5 mg PO BID PRN 01/24/19 [History] Escitalopram [Lexapro] 10 mg PO BEDTIME 04/25/19 [History] L.acidoph,Paracasei, B.lactis [Probiotic] 1 cap PO DAILY 04/25/19 [History] Gabapentin [Neurontin] 300 mg PO BID 04/29/19 [History] Simvastatin 10 mg PO BEDTIME 04/29/19 [History] levETIRAcetam [Keppra] 250 mg PO Q12H 04/29/19 [History] Amoxicillin 500 mg PO BID 3 Days #5 tablet 05/19/19 [Rx] Docusate Sodium [Colace] 100 mg PO DAILY #30 cap 05/19/19 [Rx] Sulfamethoxazole/Trimethoprim [Septra] 1 tab PO BID #5 tablet 05/19/19 [Rx] amLODIPine [Norvasc] 2.5 mg PO DAILY #30 tablet 05/19/19 [Rx] Past Medical History HEENT History: Reports: Allergic Rhinitis Cardiovascular History: Reports: Afib, CAD, Heart Failure, Hypertension, [place], Pacemaker Gastrointestinal History: Reports: Chronic Constipation Genitourinary History: Reports: Renal Disease Neurological History: Reports: Brain Injury, Parkinson's, Other (See Below) Other Neuro History: blood clot removed from head s/p fall Endocrine/Metabolic History: Reports: Hypothyroidism, Vitamin D Deficiency Oncologic (Cancer) History: Reports: Prostate Other Dermatologic History: 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 Denies: Black Stool, Bloody Stool, Hematochezia, Melena : Reports: Other (Chronic hematuria, wears a leg bag) Musculoskeletal: Reports: No Symptoms Skin: Reports: Pallor Neurological: Reports: Dizziness, Syncope Psychiatric: Reports: No Symptoms Hematologic/Lymphatic: Reports: Anemia Immunologic: Reports: No Symptoms - Physical Exam Exam: See Below General Appearance: Alert, No Apparent Distress (Elderly male who appears weak and frail. Pleasant and able to answer questions.) Eye Exam: Bilateral Eye: PERRL, Other (conjunctivae pale) Ears: Normal External Exam (bilateral hearing aids present), Other Nose: Normal Inspection, Normal Mucosa Throat/Mouth: Normal Lips, Other (noted upper dentures, edentulous in the lower) Head Exam: Atraumatic, Normocephalic Neck: Normal Inspection, Supple Respiratory/Chest: No Respiratory Distress, Lungs Clear, Normal Breath Sounds Cardiovascular: Regular Rate, Rhythm, No Edema, No Murmur GI/Abdominal: Normal Bowel Sounds, Soft, Non-Tender (Male) Exam: Other (mensah in, note bloody urine) Neuro Exam (Abbreviated): Alert, Oriented, CN II-XII Intact Extremities: Normal Inspection Psychiatric: Normal Affect, Normal Mood Skin Exam: Warm, Dry, Pallor Course - Vital Signs Text/Narrative:: 1348 The patient was seen by the PROPOSAL EDITOR. Labs and EKG were ordered. He was given IV fluids and placed on supplemental oxygen for comfort. 1455 Hgb =5.7. Discussed admit here for transfusion and case discussed with Dr Bolden, but no beds available on Med/Surg floor so will contact [facility] [address] [facility] contacted and bed requested. 1519 Dr Arndt at the [facility] accepted the patient for transport. Will send patient to [place] by ground transport. Last Recorded V/S: Last Vital Signs Temp 36.2 C 07/15/19 13:40 Pulse 83 07/15/19 13:40 Resp 20 07/15/19 13:40 BP 133/58 L 07/15/19 13:40 Pulse Ox 97 07/15/19 13:40 - Orders/Labs/Meds Orders: Active Orders 24 hr Category Date Time Status EKG 12 Lead [EKG Documentation Completion] [RC] STAT Care 07/15/19 14:27 Active Oxygen Therapy [RC] ASDIRECTED Care 07/15/19 14:28 Active CBC WITH AUTO DIFF [HEME] Stat Lab 07/15/19 14:05 Results COMPREHENSIVE METABOLIC PN,CMP [CHEM] Stat Lab 07/15/19 14:05 Received CREATINE KINASE,CK [CHEM] Stat Lab 07/15/19 14:05 Received MAGNESIUM [CHEM] Stat Lab 07/15/19 14:05 Received MANUAL DIFFERENTIAL QA/NC [HEME] Stat Lab 07/15/19 14:05 Results TROPONIN I [CHEM] Stat Lab 07/15/19 14:05 Received TYPE AND SCREEN [BBK] Stat Lab 07/15/19 14:05 Received VITAMIN B12 [REF] Stat Lab 07/15/19 14:05 Received Sodium Chloride 0.9% [Normal Saline] 1,000 ml Med 07/15/19 14:30 Active IV ASDIRECTED Sodium Chloride 0.9% [Saline Flush] Med 07/15/19 14:27 Active 10 ml FLUSH ASDIRECTED PRN Saline Lock Insert [OM.PC] Routine Oth 07/15/19 14:27 Ordered Medication Orders Sodium Chloride (Normal Saline) 1,000 mls @ 125 mls/hr IV ASDIRECTED REBECCA Sodium Chloride (Saline Flush) 10 ml FLUSH ASDIRECTED PRN PRN Reason: Keep Vein Open Labs: Laboratory Tests 07/15/19 Range/Units 14:05 WBC 9.2 (4.0-10.0) x10^3/uL RBC 1.76 L (4.5-6.0) x10^6/uL Hgb 5.7 L* D (14.0-18.0) g/dL Hct 17.9 L (40.0-52.0) % MCV 101.7 H D (78.0-93.0) fL MCH 32.4 H (26.0-32.0) pg MCHC 31.8 L (32.0-36.0) g/dL RDW Coeff of Erna 15.0 (10.0-15.0) % Plt Count 335 (130-400) x10^3/uL Add Manual Diff Yes Meds: Medications Generic Name Dose Route Start Last Admin Trade Name Freq PRN Reason Stop Dose Admin Sodium Chloride 1,000 mls @ 125 mls/hr 07/15/19 14:30 Normal Saline IV ASDIRECTED REBECCA Sodium Chloride 10 ml 07/15/19 14:27 Saline Flush FLUSH ASDIRECTED PRN Keep Vein Open Departure - Departure Time of Disposition: 15:20 Disposition: DC/[facility] to [facility] Condition: Fair Clinical Impression: Malignant neoplasm of prostate, Chronic blood loss anemia, Prostate cancer metastatic to bone, Syncope, Weakness - Discharge Information *PRESCRIPTION DRUG MONITORING PROGRAM REVIEWED*: Not Applicable *COPY OF PRESCRIPTION DRUG MONITORING REPORT IN PATIENT ROSAURA: Not Applicable Forms: ED Department Discharge Additional Instructions: -Transfer to [facility] for Admission/Blood Transfusion -Dr Arndt accepting physician at the [facility] - My Orders Last 24 Hours: My Active Orders 07/15/19 14:05 CBC WITH AUTO DIFF [HEME] Stat COMPREHENSIVE METABOLIC PN,CMP [CHEM] Stat CREATINE KINASE,CK [CHEM] Stat MAGNESIUM [CHEM] Stat MANUAL DIFFERENTIAL QA/NC [HEME] Stat TROPONIN I [CHEM] Stat TYPE AND SCREEN [BBK] Stat VITAMIN B12 [REF] Stat 07/15/19 14:27 EKG 12 Lead [EKG Documentation Completion] [RC] STAT Sodium Chloride 0.9% [Saline Flush] 10 ml FLUSH ASDIRECTED PRN Saline Lock Insert [OM.PC] Routine 07/15/19 14:28 Oxygen Therapy [RC] ASDIRECTED 07/15/19 14:30 Sodium Chloride 0.9% [Normal Saline] 1,000 ml IV ASDIRECTED - Assessment/Plan Last 24 Hours: My Active Orders 07/15/19 14:05 CBC WITH AUTO DIFF [HEME] Stat COMPREHENSIVE METABOLIC PN,CMP [CHEM] Stat CREATINE KINASE,CK [CHEM] Stat MAGNESIUM [CHEM] Stat MANUAL DIFFERENTIAL QA/NC [HEME] Stat TROPONIN I [CHEM] Stat TYPE AND SCREEN [BBK] Stat VITAMIN B12 [REF] Stat 07/15/19 14:27 EKG 12 Lead [EKG Documentation Completion] [RC] STAT Sodium Chloride 0.9% [Saline Flush] 10 ml FLUSH ASDIRECTED PRN Saline Lock Insert [OM.PC] Routine 07/15/19 14:28 Oxygen Therapy [RC] ASDIRECTED 07/15/19 14:30 Sodium Chloride 0.9% [Normal Saline] 1,000 ml IV ASDIRECTED
[2019-07-15 15:02] LABS: CHLORIDE,CL 103 mmol/L (98-107); SODIUM,NA 138 mmol/L (136-145)
[2019-07-15 15:04] LABS: ANION GAP 12.3 mmol/L (10-20)
== END 2019-07-15 16:00 ==
LOC: VM.ED 13:39
DX: R55 Syncope and collapse (principal); C61 Malignant neoplasm of prostate; C79.51 Secondary malignant neoplasm of bone; D50.0 Iron deficiency anemia secondary to blood loss (chronic); I11.0 Hypertensive heart disease with heart failure; I50.9 Heart failure, unspecified; I25.10 Atherosclerotic heart disease of native coronary artery without angina pectoris; I48.91 Unspecified atrial fibrillation; E03.9 Hypothyroidism, unspecified; Z88.8 Allergy status to other drugs, medicaments and biological substances; Z88.5 Allergy status to narcotic agent; Z79.899 Other long term (current) drug therapy
CPT/HCPCS: 80053; 82550; 82607; 83735; 84484; 85025; 86850; 86900; 86901; 93005; 99285; J7030; 36415; 99284-GF

== ENCOUNTER 2019-08-06 11:39 | Inpatient (IN) | payer OTHER, MEDICARE ==
--- NOTE | 2019-08-06 12:05 | EDM.PDOC ---
ED HPI GENERAL MEDICAL PROBLEM - General Chief Complaint: General Stated Complaint: LOW BLOOD LEVELS Time Seen by Provider: 08/06/19 11:57 - History of Present Illness INITIAL COMMENTS - FREE TEXT/NARRATIVE: Andi is an 88 y/o male who jail resident who is sent to the ER by his PCP-Dr Bolden for weakness and a Hgb reported to be 6.0. He was here about 3 weeks ago for similar symptoms and sent to the [facility] in [place] for the transfusion since there was not a bed available here in [place]. Patient did very well after that transfusion and went back [facility] jail. He has then over the last couple weeks become more weak and is again here today. - Related Data Allergies Allergy/AdvReac Type Severity Reaction Status Date / Time lisinopril Allergy Cannot Verified 08/06/19 12:38 Remember selegiline [From Eldepryl] Allergy Cannot Verified 08/06/19 12:38 Remember YOSEF Inhibitors AdvReac Cough Verified 08/06/19 12:38 carbidopa [From Sinemet] AdvReac Hallucinati Verified 08/06/19 12:38 ons hydrocodone AdvReac Nausea and Verified 08/06/19 12:38 Vomiting levodopa [From Sinemet] AdvReac Hallucinati Verified 08/06/19 12:38 ons lorazepam [From Ativan] AdvReac Hallucinati Verified 08/06/19 12:38 ons oxycodone AdvReac Nausea and Verified 08/06/19 12:38 Vomiting pramipexole di-HCl AdvReac Hallucinati Verified 08/06/19 12:38 [From Mirapex] ons Home Meds: Home Meds Finasteride [Proscar] 5 mg PO BEDTIME 04/26/15 [History] Isosorbide Mononitrate [Imdur] 30 mg PO DAILY 04/26/15 [History] Levothyroxine Sodium [Synthroid] 56 mcg PO DAILY 04/26/15 [History] Fluticasone Propionate [Flonase] 1 spray NASBOTH BID 08/25/15 [History] Omeprazole 20 mg PO BID@0730,1700 08/25/15 [History] Cholecalciferol (Vitamin D3) [Vitamin D3] 2,000 units PO DAILY 05/04/18 [History ] Magnesium Hydroxide [Milk of Magnesia] 30 ml PO DAILY PRN 05/04/18 [History] Acetaminophen [Tylenol] 975 mg PO QID PRN 11/07/18 [History] Bicalutamide [Casodex] 50 mg PO DAILY 11/07/18 [History] Ferrous Sulfate 325 mg PO WITHBREAKFAST #30 tablet 11/17/18 [Rx] Magnesium Oxide 400 mg PO TID tablet 01/24/19 [Rx] Escitalopram [Lexapro] 10 mg PO BEDTIME 04/25/19 [History] L.acidoph,Paracasei, B.lactis [Probiotic] 1 cap PO BID 04/25/19 [History] Gabapentin [Neurontin] 300 mg PO BID 04/29/19 [History] Simvastatin 10 mg PO BEDTIME 04/29/19 [History] levETIRAcetam [Keppra] 250 mg PO Q12H 04/29/19 [History] amLODIPine [Norvasc] 2.5 mg PO DAILY #30 tablet 05/19/19 [Rx] Docusate Sodium [Colace] 100 mg PO BID 08/06/19 [History] Past Medical History HEENT History: Reports: Allergic Rhinitis Cardiovascular History: Reports: Afib, CAD, Heart Failure, Hypertension, [place], Pacemaker Gastrointestinal History: Reports: Chronic Constipation Genitourinary History: Reports: Renal Disease Neurological History: Reports: Brain Injury, Parkinson's, Other (See Below) Other Neuro History: blood clot removed from head s/p fall Endocrine/Metabolic History: Reports: Hypothyroidism, Vitamin D Deficiency Hematologic History: Reports: Anemia Oncologic (Cancer) History: Reports: Prostate Other Dermatologic History: 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 - Past Surgical History Cardiovascular Surgical History: Reports: Pacer Male Surgical History: Reports: Suprapubic Catheter Placement Social & Family History - Family History Family Medical History: Noncontributory - Caffeine Use Caffeine Use: Reports: Coffee ED ROS GENERAL - Review of Systems Review Of Systems: See Below Constitutional: Reports: Weakness, Decreased Appetite HEENT: Reports: No Symptoms Respiratory: Reports: No Symptoms Cardiovascular: Reports: No Symptoms Endocrine: Reports: No Symptoms GI/Abdominal: Reports: No Symptoms : Reports: Other (Bloody urine in mensah bag) Musculoskeletal: Reports: No Symptoms Skin: Reports: Pallor Neurological: Reports: Dizziness Psychiatric: Reports: No Symptoms Hematologic/Lymphatic: Reports: Anemia Immunologic: Reports: No Symptoms ED EXAM, GENERAL - Physical Exam Exam: See Below General Appearance: Alert, No Apparent Distress, Other (weak elderly pale) Eye Exam: Bilateral Eye: PERRL, Other (pale eyelids) Ears: Other (bilateral hearing aids) Nose: Normal Inspection, Normal Mucosa, No Blood Throat/Mouth: Normal Inspection, Normal Lips, Normal Voice Head: Atraumatic, Normocephalic Neck: Supple, Non-Tender Respiratory/Chest: No Respiratory Distress, Lungs Clear, Normal Breath Sounds, Chest Non-Tender Cardiovascular: Normal Peripheral Pulses, Regular Rate, Rhythm, No Murmur GI/Abdominal: Normal Bowel Sounds, Soft, Non-Tender, No Organomegaly, No Mass (Male) Exam: Other (note bloody discharge in mensah leg bag) Rectal (Males) Exam: Deferred Back Exam: Normal Inspection Extremities: Normal Inspection, Normal Capillary Refill (1+ edema to bilateral lower legs) Neurological: Alert, Oriented, CN II-XII Intact Psychiatric: Normal Affect, Normal Mood Skin Exam: Warm, Dry, No Rash, Pallor Lymphatic: No Adenopathy Course - Vital Signs Text/Narrative:: 1157 The patient was seen by the ARMORING MACHINE OPERATOR. Labs were done. 1220 Critical Hgb result of 5.8 called to ARMORING MACHINE OPERATOR from Lab. Discussed with family need for repeat transfusion. Daughter reports that she would like the patient to stay here at [place] for the transfusion if possible. 1240 Remaining labs pending. Will plan transfusion with 3 units PRBCs. Patient to be sent to Med/Surg for Observation care. Use ER note as H&P for Observation. Last Recorded V/S: Last Vital Signs Temp 36.8 C 08/06/19 11:40 Pulse 70 08/06/19 13:00 Resp 18 08/06/19 11:40 BP 109/49 L 08/06/19 13:00 Pulse Ox 93 L 08/06/19 13:00 - Orders/Labs/Meds Orders: Active Orders 24 hr Category Date Time Status RED BLOOD CELLS LP [BBK] Stat Lab 08/06/19 12:15 Results TYPE AND SCREEN [BBK] Stat Lab 08/06/19 12:15 Results Sodium Chloride 0.9% [Saline Flush] Med 08/06/19 12:05 Active 10 ml FLUSH ASDIRECTED PRN Saline Lock Insert [OM.PC] Routine Oth 08/06/19 12:05 Ordered Medication Orders Sodium Chloride (Saline Flush) 10 ml FLUSH ASDIRECTED PRN PRN Reason: Keep Vein Open My Active Orders 08/06/19 12:05 CBC WITH AUTO DIFF [HEME] Stat TYPE AND SCREEN [BBK] Stat Sodium Chloride 0.9% [Saline Flush] 10 ml FLUSH ASDIRECTED PRN Saline Lock Insert [OM.PC] Routine 08/06/19 12:15 MANUAL DIFFERENTIAL QA/NC [HEME] Stat Labs: Laboratory Tests 08/06/19 08/06/19 08/06/19 Range/Units 12:15 12:15 12:15 WBC 8.0 (4.0-10.0) x10^3/uL RBC 1.80 L (4.5-6.0) x10^6/uL Hgb 5.8 L* (14.0-18.0) g/dL Hct 18.5 L (40.0-52.0) % MCV 102.8 H (78.0-93.0) fL MCH 32.2 H (26.0-32.0) pg MCHC 31.4 L (32.0-36.0) g/dL RDW Coeff of Erna 15.2 H (10.0-15.0) % Plt Count 337 (130-400) x10^3/uL Add Manual Diff Yes Neutrophils % (Manual) 77 (50-80) % Band Neutrophils % 3 (0-6) % Lymphocytes % (Manual) 14 L (25-50) % Monocytes % (Manual) 5 (2-11) % Eosinophils % (Manual) 1 (0-4) % Platelet Estimate Adequate Hypochromasia 3+ marked H Anisocytosis 1+ slight H Sodium 138 (136-145) mmol/L Potassium 4.4 (3.5-5.1) mmol/L Chloride 104 (98-107) mmol/L Carbon Dioxide 26 (21-32) mmol/L Anion Gap 12.4 (10-20) mmol/L BUN 18 (7-18) mg/dL Creatinine 1.9 H (0.70-1.30) mg/dL Est Cr Clr Drug Dosing 27.21 mL/min Estimated GFR (MDRD) 34 Glucose 96 (74-106) mg/dL Calcium 8.7 (8.5-10.1) mg/dL Blood Type A POSITIVE Gel Antibody Screen Negative Crossmatch See Detail Laboratory Results - last 24 hr 08/06/19 08/06/19 Range/Units 12:15 12:15 WBC 8.0 (4.0-10.0) x10^3/uL RBC 1.80 L (4.5-6.0) x10^6/uL Hgb 5.8 L* (14.0-18.0) g/dL Hct 18.5 L (40.0-52.0) % MCV 102.8 H (78.0-93.0) fL MCH 32.2 H (26.0-32.0) pg MCHC 31.4 L (32.0-36.0) g/dL RDW Coeff of Erna 15.2 H (10.0-15.0) % Plt Count 337 (130-400) x10^3/uL Add Manual Diff Yes Sodium 138 (136-145) mmol/L Potassium 4.4 (3.5-5.1) mmol/L Chloride 104 (98-107) mmol/L Carbon Dioxide 26 (21-32) mmol/L Anion Gap 12.4 (10-20) mmol/L BUN 18 (7-18) mg/dL Creatinine 1.9 H (0.70-1.30) mg/dL Est Cr Clr Drug Dosing 27.21 mL/min Estimated GFR (MDRD) 34 Glucose 96 (74-106) mg/dL Calcium 8.7 (8.5-10.1) mg/dL Meds: Medications Generic Name Dose Route Start Last Admin Trade Name Freq PRN Reason Stop Dose Admin Sodium Chloride 10 ml 08/06/19 12:05 Saline Flush FLUSH ASDIRECTED PRN Keep Vein Open Departure - Departure Time of Disposition: 13:30 Disposition: Admitted As Inpatient 66 Condition: Good Clinical Impression: Anemia associated with acute blood loss, Prostate cancer, Weakness - Discharge Information - Problem List Review Problem List Initiated/Reviewed/Updated: Yes - My Orders Last 24 Hours: My Active Orders 08/06/19 12:05 Sodium Chloride 0.9% [Saline Flush] 10 ml FLUSH ASDIRECTED PRN Saline Lock Insert [OM.PC] Routine 08/06/19 12:15 RED BLOOD CELLS LP [BBK] Stat TYPE AND SCREEN [BBK] Stat - Assessment/Plan Last 24 Hours: My Active Orders 08/06/19 12:05 Sodium Chloride 0.9% [Saline Flush] 10 ml FLUSH ASDIRECTED PRN Saline Lock Insert [OM.PC] Routine 08/06/19 12:15 RED BLOOD CELLS LP [BBK] Stat TYPE AND SCREEN [BBK] Stat Assessment:: 1)Anemia Acute Blood Loss 2)Weakness 3)Hx Prostate Cancer Plan: -Admit to Med/Surg Floor for Observation and plan to transfuse 3 units of PRBCs
[2019-08-06 12:42] LABS: ANION GAP 12.4 mmol/L (10-20)
[2019-08-06] MEDS ORDERED: Acetaminophen 325 MG Tab PO ONE (13:33)
[2019-08-06] MEDS ORDERED: diphenhydrAMINE 50 MG/ML SDV IV ONE (13:33)
[2019-08-06] MEDS ORDERED: Ondansetron 4 MG Tab.DIS PO PRN (13:37)
--- NOTE | 2019-08-06 13:43 | EDM.PDOC ---
ED HPI GENERAL MEDICAL PROBLEM - General Chief Complaint: General Stated Complaint: LOW BLOOD LEVELS Time Seen by Provider: 08/06/19 11:57 - History of Present Illness INITIAL COMMENTS - FREE TEXT/NARRATIVE: Andi is an 88 y/o male who group home resident who is sent to the ER by his PCP-Dr Bolden for weakness and a Hgb reported to be 6.0. He was here about 3 weeks ago for similar symptoms and sent to the [facility] in [place] for the transfusion since there was not a bed available here in [place]. Patient did very well after that transfusion and went back to the group home. He has then over the last couple weeks become more weak and is again here today. - Related Data Allergies Allergy/AdvReac Type Severity Reaction Status Date / Time lisinopril Allergy Cannot Verified 08/06/19 12:38 Remember selegiline [From Eldepryl] Allergy Cannot Verified 08/06/19 12:38 Remember YOSEF Inhibitors AdvReac Cough Verified 08/06/19 12:38 carbidopa [From Sinemet] AdvReac Hallucinati Verified 08/06/19 12:38 ons hydrocodone AdvReac Nausea and Verified 08/06/19 12:38 Vomiting levodopa [From Sinemet] AdvReac Hallucinati Verified 08/06/19 12:38 ons lorazepam [From Ativan] AdvReac Hallucinati Verified 08/06/19 12:38 ons oxycodone AdvReac Nausea and Verified 08/06/19 12:38 Vomiting pramipexole di-HCl AdvReac Hallucinati Verified 08/06/19 12:38 [From Mirapex] ons Home Meds: Home Meds Finasteride [Proscar] 5 mg PO BEDTIME 04/26/15 [History] Isosorbide Mononitrate [Imdur] 30 mg PO DAILY 04/26/15 [History] Levothyroxine Sodium [Synthroid] 56 mcg PO DAILY 04/26/15 [History] Fluticasone Propionate [Flonase] 1 spray NASBOTH BID 08/25/15 [History] Omeprazole 20 mg PO BID@0730,1700 08/25/15 [History] Cholecalciferol (Vitamin D3) [Vitamin D3] 2,000 units PO DAILY 05/04/18 [History ] Magnesium Hydroxide [Milk of Magnesia] 30 ml PO DAILY PRN 05/04/18 [History] Acetaminophen [Tylenol] 975 mg PO QID PRN 11/07/18 [History] Bicalutamide [Casodex] 50 mg PO DAILY 11/07/18 [History] Ferrous Sulfate 325 mg PO WITHBREAKFAST #30 tablet 11/17/18 [Rx] Magnesium Oxide 400 mg PO TID tablet 01/24/19 [Rx] Escitalopram [Lexapro] 10 mg PO BEDTIME 04/25/19 [History] L.acidoph,Paracasei, B.lactis [Probiotic] 1 cap PO BID 04/25/19 [History] Gabapentin [Neurontin] 300 mg PO BID 04/29/19 [History] Simvastatin 10 mg PO BEDTIME 04/29/19 [History] levETIRAcetam [Keppra] 250 mg PO Q12H 04/29/19 [History] amLODIPine [Norvasc] 2.5 mg PO DAILY #30 tablet 05/19/19 [Rx] Docusate Sodium [Colace] 100 mg PO BID 08/06/19 [History] Past Medical History HEENT History: Reports: Allergic Rhinitis Cardiovascular History: Reports: Afib, CAD, Heart Failure, Hypertension, [place], Pacemaker Gastrointestinal History: Reports: Chronic Constipation Genitourinary History: Reports: Renal Disease Neurological History: Reports: Brain Injury, Parkinson's, Other (See Below) Other Neuro History: blood clot removed from head s/p fall Endocrine/Metabolic History: Reports: Hypothyroidism, Vitamin D Deficiency Hematologic History: Reports: Anemia Oncologic (Cancer) History: Reports: Prostate Other Dermatologic History: 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 - Past Surgical History Cardiovascular Surgical History: Reports: Pacer Male Surgical History: Reports: Suprapubic Catheter Placement Social & Family History - Family History Family Medical History: Noncontributory - Tobacco Use Smoking Status *Q: Unknown Ever Smoked - Caffeine Use Caffeine Use: Reports: Coffee - Recreational Drug Use Recreational Drug Use: No Review of Systems - Review of Systems Review Of Systems: See Below ED EXAM, GENERAL - Physical Exam Exam: See Below Free Text/Narrative:: Andi is an 88 y/o male who group home resident who is sent to the ER by his PCP-Dr Bolden for weakness and a Hgb reported to be 6.0. He was here about 3 weeks ago for similar symptoms and sent to the [facility] in [place] for the transfusion since there was not a bed available here in [place]. Patient did very well after that transfusion and went back to the group home. He has then over the last couple weeks become more weak and is again here today. General Appearance: Alert, No Apparent Distress, Other (weak elderly pale) Ears: Other (bilateral hearing aids) Nose: Normal Inspection, Normal Mucosa, No Blood Throat/Mouth: Normal Inspection, Normal Lips, Normal Voice Head: Atraumatic, Normocephalic Neck: Supple, Non-Tender Respiratory/Chest: No Respiratory Distress, Lungs Clear, Normal Breath Sounds, Chest Non-Tender Cardiovascular: Normal Peripheral Pulses, Regular Rate, Rhythm, No Murmur GI/Abdominal: Normal Bowel Sounds, Soft, Non-Tender, No Organomegaly, No Mass Back Exam: Normal Inspection Extremities: Normal Inspection, Normal Capillary Refill (1+ edema to bilateral lower legs) Neurological: Alert, Oriented, CN II-XII Intact Psychiatric: Normal Affect, Normal Mood Skin Exam: Warm, Dry, No Rash, Pallor Lymphatic: No Adenopathy Course - Vital Signs Last Recorded V/S: Last Vital Signs Temp 36.8 C 08/06/19 11:40 Pulse 70 08/06/19 13:00 Resp 18 08/06/19 11:40 BP 109/49 L 08/06/19 13:00 Pulse Ox 93 L 08/06/19 13:00 - Orders/Labs/Meds Orders: Active Orders 24 hr Category Date Time Status RED BLOOD CELLS LP [BBK] Stat Lab 08/06/19 12:15 Results TYPE AND SCREEN [BBK] Stat Lab 08/06/19 12:15 Results Sodium Chloride 0.9% [Saline Flush] Med 08/06/19 12:05 Active 10 ml FLUSH ASDIRECTED PRN Saline Lock Insert [OM.PC] Routine Oth 08/06/19 12:05 Ordered Medication Orders Sodium Chloride (Saline Flush) 10 ml FLUSH ASDIRECTED PRN PRN Reason: Keep Vein Open Labs: Laboratory Tests 08/06/19 08/06/19 08/06/19 Range/Units 12:15 12:15 12:15 WBC 8.0 (4.0-10.0) x10^3/uL RBC 1.80 L (4.5-6.0) x10^6/uL Hgb 5.8 L* (14.0-18.0) g/dL Hct 18.5 L (40.0-52.0) % MCV 102.8 H (78.0-93.0) fL MCH 32.2 H (26.0-32.0) pg MCHC 31.4 L (32.0-36.0) g/dL RDW Coeff of Erna 15.2 H (10.0-15.0) % Plt Count 337 (130-400) x10^3/uL Add Manual Diff Yes Neutrophils % (Manual) 77 (50-80) % Band Neutrophils % 3 (0-6) % Lymphocytes % (Manual) 14 L (25-50) % Monocytes % (Manual) 5 (2-11) % Eosinophils % (Manual) 1 (0-4) % Platelet Estimate Adequate Hypochromasia 3+ marked H Anisocytosis 1+ slight H Sodium 138 (136-145) mmol/L Potassium 4.4 (3.5-5.1) mmol/L Chloride 104 (98-107) mmol/L Carbon Dioxide 26 (21-32) mmol/L Anion Gap 12.4 (10-20) mmol/L BUN 18 (7-18) mg/dL Creatinine 1.9 H (0.70-1.30) mg/dL Est Cr Clr Drug Dosing 27.21 mL/min Estimated GFR (MDRD) 34 Glucose 96 (74-106) mg/dL Calcium 8.7 (8.5-10.1) mg/dL Blood Type A POSITIVE Gel Antibody Screen Negative Crossmatch See Detail Meds: Medications Generic Name Dose Route Start Last Admin Trade Name Freq PRN Reason Stop Dose Admin Sodium Chloride 10 ml 08/06/19 12:05 Saline Flush FLUSH ASDIRECTED PRN Keep Vein Open Departure - Departure Time of Disposition: 13:30 Disposition: Admitted As Inpatient 66 Condition: Good Clinical Impression: Anemia associated with acute blood loss, Prostate cancer, Weakness - Discharge Information - My Orders Last 24 Hours: My Active Orders 08/06/19 12:05 Sodium Chloride 0.9% [Saline Flush] 10 ml FLUSH ASDIRECTED PRN Saline Lock Insert [OM.PC] Routine 08/06/19 12:15 RED BLOOD CELLS LP [BBK] Stat TYPE AND SCREEN [BBK] Stat - Assessment/Plan Last 24 Hours: My Active Orders 08/06/19 12:05 Sodium Chloride 0.9% [Saline Flush] 10 ml FLUSH ASDIRECTED PRN Saline Lock Insert [OM.PC] Routine 08/06/19 12:15 RED BLOOD CELLS LP [BBK] Stat TYPE AND SCREEN [BBK] Stat
[2019-08-06] MEDS: Furosemide 20 MG/2 ML VIAL IV SCH ×3 (16:51→23:43)
[2019-08-06] MEDS: Sodium Chloride 0.9% 10 ML Syringe FLUSH PRN ×3 (16:51→23:40)
[2019-08-06] MEDS ORDERED: Acetaminophen 325 MG Tab PO PRN (19:55)
[2019-08-06] MEDS ORDERED: Magnesium Hydroxide 400 MG/5 ML Susp 30 ML Cup PO PRN (19:55)
[2019-08-06] MEDS ORDERED: Simvastatin 20 MG Tab PO SCH (20:00)
[2019-08-06] MEDS ORDERED: Citalopram 20 MG Tab PO SCH (20:00)
[2019-08-06] MEDS: Acetaminophen 325 MG Tab PO PRN (20:32)
[2019-08-06] MEDS: Fluticasone Propionate Nasal Spray 16 GM Bottle NASBOTH SCH (21:03)
[2019-08-06] MEDS: levETIRAcetam 500 MG Tab PO SCH (21:04)
[2019-08-06] MEDS: Docusate Sodium 100 MG Cap PO SCH (21:04)
[2019-08-06] MEDS: Finasteride 5 MG Tab PO SCH (21:04)
[2019-08-06] MEDS: Magnesium Oxide 400 MG Tab PO SCH (21:04)
[2019-08-06] MEDS: Gabapentin 300 MG Cap PO SCH (21:23)
[2019-08-06] MEDS: Lactobacillus Rhamnosus GG (Probiotic) Cap PO SCH (21:23)
[2019-08-07] MEDS: Levothyroxine 112 MCG Tab PO SCH (06:03)
[2019-08-07] MEDS: Omeprazole 20 MG Cap.CR PO SCH ×3 (06:03→17:13)
[2019-08-07 07:35] LABS: ANION GAP 9.9 mmol/L (10-20)
[2019-08-07] MEDS: Fluticasone Propionate Nasal Spray 16 GM Bottle NASBOTH SCH ×2 (07:50→19:31)
[2019-08-07] MEDS: Lactobacillus Rhamnosus GG (Probiotic) Cap PO SCH ×2 (07:51→19:30)
[2019-08-07] MEDS: Docusate Sodium 100 MG Cap PO SCH ×2 (07:51→19:30)
[2019-08-07] MEDS: Cholecalciferol (Vitamin D3) 25 MCG Tab PO SCH (07:51)
[2019-08-07] MEDS: Isosorbide Mononitrate 30 MG Tab.ER PO SCH (07:51)
[2019-08-07] MEDS: levETIRAcetam 500 MG Tab PO SCH ×2 (07:51→19:30)
[2019-08-07] MEDS: Gabapentin 300 MG Cap PO SCH ×2 (07:52→19:31)
[2019-08-07] MEDS: Ferrous Sulfate 325 MG Tab PO SCH (07:52)
[2019-08-07] MEDS: amLODIPine 2.5 MG Tab PO SCH (07:52)
[2019-08-07] MEDS: Magnesium Oxide 400 MG Tab PO SCH ×3 (07:52→19:30)
[2019-08-07] MEDS ORDERED: Non-Formulary Medication 1 Each (Bicalutamide [Casodex] 50 MG) PO SCH (08:00)
[2019-08-07] MEDS ORDERED: cefTRIAXone 1 GM Vial IVPUSH ONE (09:13)
--- NOTE | 2019-08-07 09:27 | PCM.PN ---
- General Info Date of Service: 08/07/19 Admission Dx/Problem (Free Text): Hospital day 2. Pt. was transfused with 3 units PRBCs. Pt. tolerated this well. He is still very confused. Hemoglobin today was up to 9.7. He denies any shortness of breath. He is noted to have adama hematuria from his urinary catheter. Denies any cough. Pt. mental status makes it difficult to obtain an accurate H and P. Pt. indicates that he is not short of breath, and that he is not feeling well. He is able to stand with the assist of 2. Pt. was admitted observation yesterday by TALIA Mello. His PCP is Dr. Bolden. Functional Status: Reports: Pain Controlled, Tolerating Diet - Review of Systems General: Reports: Fatigue, Malaise HEENT: Reports: No Symptoms Pulmonary: Reports: No Symptoms. Denies: Shortness of Breath Cardiovascular: Reports: No Symptoms Gastrointestinal: Reports: No Symptoms Genitourinary: Reports: No Symptoms Musculoskeletal: Reports: No Symptoms Skin: Reports: Pallor Neurological: Reports: Confusion, Weakness Psychiatric: Reports: No Symptoms - Patient Data Vitals - Most Recent: Last Vital Signs Temp 36.6 C 08/07/19 06:00 Pulse 71 08/07/19 06:00 Resp 18 08/07/19 06:00 BP 147/63 H 08/07/19 07:52 Pulse Ox 94 L 08/07/19 06:00 Weight - Most Recent: 78.018 kg I&O - Last 24 Hours: Intake & Output 08/06/19 08/07/19 08/07/19 22:59 06:59 14:59 Intake Total 919 221 420 Output Total 8098 7990 Balance -833 -8752 420 Lab Results Last 24 Hours: Laboratory Results - last 24 hr 08/06/19 08/06/19 08/06/19 Range/Units 12:15 12:15 12:15 WBC 8.0 (4.0-10.0) x10^3/uL RBC 1.80 L (4.5-6.0) x10^6/uL Hgb 5.8 L* (14.0-18.0) g/dL Hct 18.5 L (40.0-52.0) % MCV 102.8 H (78.0-93.0) fL MCH 32.2 H (26.0-32.0) pg MCHC 31.4 L (32.0-36.0) g/dL RDW Coeff of Erna 15.2 H (10.0-15.0) % Plt Count 337 (130-400) x10^3/uL Neut % (Auto) (50.0-80.0) % Lymph % (Auto) (25.0-50.0) % Shannon % (Auto) (2.0-11.0) % Eos % (Auto) (0.0-4.0) % Baso % (Auto) (0.2-1.2) % Add Manual Diff Yes Neutrophils % (Manual) 77 (50-80) % Band Neutrophils % 3 (0-6) % Lymphocytes % (Manual) 14 L (25-50) % Monocytes % (Manual) 5 (2-11) % Eosinophils % (Manual) 1 (0-4) % Platelet Estimate Adequate Hypochromasia 3+ marked H Anisocytosis 1+ slight H Sodium 138 (136-145) mmol/L Potassium 4.4 (3.5-5.1) mmol/L Chloride 104 (98-107) mmol/L Carbon Dioxide 26 (21-32) mmol/L Anion Gap 12.4 (10-20) mmol/L BUN 18 (7-18) mg/dL Creatinine 1.9 H (0.70-1.30) mg/dL Est Cr Clr Drug Dosing 27.21 mL/min Estimated GFR (MDRD) 34 Glucose 96 (74-106) mg/dL Calcium 8.7 (8.5-10.1) mg/dL Corrected Calcium (8.5-10.1) mg/dL Magnesium (1.8-2.4) mg/dL Total Bilirubin (0.2-1.0) mg/dL AST (15-37) U/L ALT (16-63) U/L Alkaline Phosphatase (46-116) U/L NT-Pro-B Natriuret Pep (<=450) pg/mL Total Protein (6.4-8.2) g/dL Albumin (3.4-5.0) g/dL Globulin Albumin/Globulin Ratio Blood Type A POSITIVE Gel Antibody Screen Negative Crossmatch See Detail 08/07/19 08/07/19 08/07/19 Range/Units 07:05 07:05 07:05 WBC 7.4 (4.0-10.0) x10^3/uL RBC 3.12 L (4.5-6.0) x10^6/uL Hgb 9.7 L D (14.0-18.0) g/dL Hct 29.2 L (40.0-52.0) % MCV 93.6 H D (78.0-93.0) fL MCH 31.1 (26.0-32.0) pg MCHC 33.2 (32.0-36.0) g/dL RDW Coeff of Erna 17.1 H (10.0-15.0) % Plt Count 318 (130-400) x10^3/uL Neut % (Auto) 69.4 (50.0-80.0) % Lymph % (Auto) 16.1 L (25.0-50.0) % Shannon % (Auto) 13.3 H (2.0-11.0) % Eos % (Auto) 0.9 (0.0-4.0) % Baso % (Auto) 0.3 (0.2-1.2) % Add Manual Diff Neutrophils % (Manual) (50-80) % Band Neutrophils % (0-6) % Lymphocytes % (Manual) (25-50) % Monocytes % (Manual) (2-11) % Eosinophils % (Manual) (0-4) % Platelet Estimate Hypochromasia Anisocytosis Sodium 138 (136-145) mmol/L Potassium 3.9 (3.5-5.1) mmol/L Chloride 102 (98-107) mmol/L Carbon Dioxide 30 (21-32) mmol/L Anion Gap 9.9 L (10-20) mmol/L BUN 20 H (7-18) mg/dL Creatinine 1.9 H (0.70-1.30) mg/dL Est Cr Clr Drug Dosing 27.21 mL/min Estimated GFR (MDRD) 34 Glucose 98 (74-106) mg/dL Calcium 9.3 (8.5-10.1) mg/dL Corrected Calcium 10.18 H (8.5-10.1) mg/dL Magnesium 1.8 (1.8-2.4) mg/dL Total Bilirubin 0.7 (0.2-1.0) mg/dL AST 13 L (15-37) U/L ALT 10 L (16-63) U/L Alkaline Phosphatase 79 (46-116) U/L NT-Pro-B Natriuret Pep 1012 H (<=450) pg/mL Total Protein 6.6 (6.4-8.2) g/dL Albumin 2.9 L (3.4-5.0) g/dL Globulin 3.7 Albumin/Globulin Ratio 0.78 Blood Type Gel Antibody Screen Crossmatch Edmund Results Last 24 Hours: Microbiology 08/06/19 13:45 MRSA Surveillance Culture - Final Nares, Unspecified NO MRSA ISOLATED Med Orders - Current: Current Medications Acetaminophen (Tylenol) 650 mg PO Q4H PRN PRN Reason: Pain (Mild 1-3)/fever Last Admin: 08/06/19 20:32 Dose: 650 mg Acetaminophen (Tylenol) 975 mg PO QID PRN PRN Reason: Pain Amlodipine Besylate (Norvasc) 2.5 mg PO DAILY [facility] Last Admin: 08/07/19 07:52 Dose: 2.5 mg Cholecalciferol (Vitamin D3) 50 mcg PO DAILY [facility] Last Admin: 08/07/19 07:51 Dose: 50 mcg Citalopram Hydrobromide (Celexa) 10 mg PO BEDTIME [facility] Docusate Sodium (Colace) 100 mg PO BID [facility] Last Admin: 08/07/19 07:51 Dose: 100 mg Ferrous Sulfate (Ferrous Sulfate) 325 mg PO WITHBREAKFAST [facility] Last Admin: 08/07/19 07:52 Dose: 325 mg Finasteride (Proscar) 5 mg PO BEDTIME [facility] Last Admin: 08/06/19 21:04 Dose: 5 mg Fluticasone Propionate (Flonase) 0 gm NASBOTH BID [facility] Last Admin: 08/07/19 07:50 Dose: 1 spray Gabapentin (Neurontin) 300 mg PO BID [facility] Last Admin: 08/07/19 07:52 Dose: 300 mg Isosorbide Mononitrate (Imdur) 30 mg PO DAILY [facility] Last Admin: 08/07/19 07:51 Dose: 30 mg Lactobacillus Rhamnosus (Culturelle) 1 cap PO BID [facility] Last Admin: 08/07/19 07:51 Dose: 1 cap Levetiracetam (Keppra) 250 mg PO Q12H [facility] Last Admin: 08/07/19 07:51 Dose: 250 mg Levothyroxine Sodium (Levothyroxine) 56 mcg PO DAILY@0700 [facility] Last Admin: 08/07/19 06:03 Dose: 56 mcg Magnesium Hydroxide (Milk Of Magnesia) 30 ml PO DAILY PRN PRN Reason: Constipation Magnesium Oxide (Magnesium Oxide) 400 mg PO TID [facility] Last Admin: 08/07/19 07:52 Dose: 400 mg Non-Formulary Medication (Bicalutamide [Casodex]) 50 mg PO DAILY [facility] Omeprazole (Omeprazole) 20 mg PO BID@0730,1700 [facility] Last Admin: 08/07/19 06:37 Dose: Not Given Ondansetron HCl (Zofran Odt) 4 mg PO Q4H PRN PRN Reason: nausea, able to take PO Simvastatin (Zocor) 10 mg PO BEDTIME [facility] Sodium Chloride (Saline Flush) 10 ml FLUSH ASDIRECTED PRN PRN Reason: Keep Vein Open Last Admin: 08/06/19 23:40 Dose: 10 ml Discontinued Medications Acetaminophen (Tylenol) 650 mg PO NOW ONE Stop: 08/06/19 13:34 Last Admin: 08/06/19 13:57 Dose: 650 mg Ceftriaxone Sodium (Rocephin) 1 gm IVPUSH STAT ONE Stop: 08/07/19 09:14 Citalopram Hydrobromide (Celexa) 10 mg PO BEDTIME [facility] Last Admin: 08/06/19 21:23 Dose: 10 mg Diphenhydramine HCl (Benadryl) 25 mg IV ONETIME ONE Stop: 08/06/19 13:34 Last Admin: 08/06/19 13:58 Dose: 25 mg Furosemide (Lasix) 20 mg IV ASDIRECTED [facility] Stop: 08/06/19 23:59 Last Admin: 08/06/19 23:43 Dose: 20 mg Simvastatin (Zocor) 10 mg PO BEDTIME [facility] Last Admin: 08/06/19 21:04 Dose: 10 mg - Exam General: Alert, Lethargic Lungs: Clear to Auscultation, Normal Respiratory Effort. No: Crackles Cardiovascular: Regular Rate, Regular Rhythm GI/Abdominal Exam: Normal Bowel Sounds, Soft, Non-Tender, No Organomegaly, No Distention, No Mass (Male) Exam: Deferred Extremities: Normal Inspection, Normal Range of Motion, Non-Tender, No Pedal Edema, Normal Capillary Refill Skin: Warm, Dry, Intact Neurological: No New Focal Deficit Psy/Mental Status: Alert, Labile Mood - Problem List & Annotations (1) Anemia associated with acute blood loss SNOMED Code(s): 715728150 Code(s): D62 - ACUTE POSTHEMORRHAGIC ANEMIA Status: Acute Current Visit: Yes (2) Weakness SNOMED Code(s): 91107033 Code(s): R53.1 - WEAKNESS Status: Acute Priority: High Current Visit: Yes Annotation/Comment:: left upper extremity related to subdural. (3) Chronic blood loss anemia SNOMED Code(s): 311847411 Code(s): D50.0 - IRON DEFICIENCY ANEMIA SECONDARY TO BLOOD LOSS (CHRONIC) Status: Acute Current Visit: No Annotation/Comment:: related to prostate cancer and radiation to try to manage per Dr Mcgregor at OR done at [facility]. - Problem List Review Problem List Initiated/Reviewed/Updated: Yes - My Orders Last 24 Hours: My Active Orders 08/07/19 09:12 Patient Status [ADT] Routine 08/07/19 09:13 Dietary Supplements [RC] BIDMEALS 08/07/19 09:14 CULTURE BLOOD [BC] Stat CULTURE BLOOD [BC] Stat CULTURE URINE [RM] Stat LACTIC ACID [CHEM] Stat Blood Culture x2 Reflex Set [OM.PC] Stat - Plan Plan:: Spoke with Dr. Bolden. Pt. will be changed to acute status. There was no appreciable improvement despite having the blood transfusions. Urine will be cultured. He was given a gram of rocephin IV. Blood culture x2 and lactic acid were obtained and are pending. Discussed findings with family. They request more blood for that patient. Explained to them that his hemoglobin is out of the range for needing transfusion at this point, and that the cause of his confusion is due to another cause other than anemia, likely UTI, given his history. Dr. Bolden will assume care of the patient. He was followed this AM by me, so she will see him tomorrow on rounds. All questions were answered.
[2019-08-07 12:41] LABS: CHLORIDE,CL 102 mmol/L (98-107); SODIUM,NA 139 mmol/L (136-145)
[2019-08-07 12:43] LABS: ANION GAP 13.2 mmol/L (10-20)
[2019-08-07] MEDS: Acetaminophen 325 MG Tab PO PRN (19:30)
[2019-08-07] MEDS: Finasteride 5 MG Tab PO SCH (19:31)
[2019-08-07] MEDS ORDERED: Simvastatin 10 MG Tab PO SCH (20:00)
[2019-08-07] MEDS ORDERED: Citalopram 10 MG Tab PO SCH (20:00)
[2019-08-08 05:30] VITALS: PULSE 70
[2019-08-08] MEDS: Omeprazole 20 MG Cap.CR PO SCH ×2 (06:24→09:10)
[2019-08-08] MEDS: Levothyroxine 112 MCG Tab PO SCH (06:24)
[2019-08-08 07:22] LABS: ANION GAP 10.4 mmol/L (10-20)
[2019-08-08] MEDS ORDERED: cefTRIAXone 1 GM Vial IVPUSH SCH (08:00)
[2019-08-08] MEDS: Gabapentin 300 MG Cap PO SCH (09:00)
[2019-08-08] MEDS: Docusate Sodium 100 MG Cap PO SCH (09:00)
[2019-08-08] MEDS: Lactobacillus Rhamnosus GG (Probiotic) Cap PO SCH (09:00)
[2019-08-08] MEDS: Cholecalciferol (Vitamin D3) 25 MCG Tab PO SCH (09:01)
[2019-08-08] MEDS: Isosorbide Mononitrate 30 MG Tab.ER PO SCH (09:01)
[2019-08-08] MEDS: Magnesium Oxide 400 MG Tab PO SCH ×2 (09:02→14:33)
[2019-08-08] MEDS: Ferrous Sulfate 325 MG Tab PO SCH (09:02)
[2019-08-08] MEDS: amLODIPine 2.5 MG Tab PO SCH (09:02)
[2019-08-08] MEDS: levETIRAcetam 500 MG Tab PO SCH (09:03)
[2019-08-08] MEDS: Fluticasone Propionate Nasal Spray 16 GM Bottle NASBOTH SCH (09:03)
--- NOTE | 2019-08-08 09:21 | PN ---
Progress Note for ERAN RODRIGUEZ Date: 08/08/2019 Room #: .202 SUBJECTIVE: The patient had a syncopal spell at noon yesterday where rapid response was called and unclear as to what had gone on, but after that, the patient woke up at 4 in the afternoon and been feeling fine after that. Cannot recall if he has had a remote history of seizure disorder years ago after a possible subdural bleed. He has slept well during the night and he is just waking up this morning. He says his arms feel achy, but otherwise he has not been up to ambulate yet. OBJECTIVE: Vital Signs: His weight is 77.2 kg. His temperature is 36.4, pulse 70, blood pressure is 126/56, respiratory rate 16, sats 97% on room air. Skin: [place], warm, and dry. Heart: Regular rate and rhythm. Lungs: Clear. Abdomen: Soft. Lower Extremities: No edema. His urine is bright red in color. LABORATORY DATA: Hemoglobin 9.6, white blood cell count 7.5, platelets 316 with 71 segs, 1 band, 16 lymphocytes. Sodium is 139, potassium 4.4, creatinine 2.1, which is stable. BUN is 23, GFR is 30, glucose is 102. Lactic acid yesterday was 1.8, this morning is 0.8, calcium is 9.6, AST 12, ALT 10. CRP is 3.0, proBNP is 523 improved from 1012 yesterday morning. Urine from yesterday came back showing large blood, positive nitrites, large leukocyte esterase, packed RBCs, packed white blood cells, few bacteria. IMPRESSION: 1. Syncopal spell, unclear etiology. 2. Symptomatic anemia from blood loss, status post transfusion. 3. Anemia due to chronic blood loss. 4. Weakness. 5. Metastatic prostate cancer. 6. Cognitive dysfunction. 7. Presumed urinary tract infection. PLAN: The patient was started on IV Rocephin yesterday. Urine culture is pending today. I would like to see how the patient does up with moving around this morning and if stable, could consider transfer back to [facility] later today. Did mention with family since they are not stopping the source of bleeding depending on how soon he decompensates would determine if this would be a continued therapy form versus if he would need to consider stopping transfusions. Since the patient is awake today, opted not to do a head CT on the patient. GM08/08/2019 08:28:25 MODL: 08/08/2019 08:54:54 /[id number]
[2019-08-08] MEDS ORDERED: Sulfamethoxazole/Trimethoprim 400-80 MG Tab PO SCH (12:30)
[2019-08-08] MEDS ORDERED: Amoxicillin 500 MG Cap PO SCH (12:30)
[2019-08-08] MEDS ORDERED: Sodium Chloride 0.9% 500 ML IV ONE (13:07)
--- NOTE | 2019-08-08 13:07 | PCM.SN ---
- Free Text/Narrative Note: family wanting pt back to [facility]. They feel he is at baseline. Pt still feels weak. His BP is 95/42 and he is not drinking well. He did sit in ac for lunch. They are concerned about coverage of cost of [place] bed. [facility] will take him today and he is agreeable to go. He certainly can relapse. Will give 500 ml of NS now prior to discharge.
[2019-08-08 16:30] VITALS: BP 95/42
--- NOTE | 2019-08-11 09:44 | DISCH ---
PRIMARY DIAGNOSES: 1. Symptomatic severe anemia. 2. Traumatic genitourinary bleeding. 3. Syncopal episode, unclear etiology. 4. Weakness, multifactorial. 5. Metastatic prostate cancer. 6. Cognitive dysfunction. 7. Urinary tract infection with 2 organisms complicated. 8. Urinary retention with chronic indwelling catheter. 9. Chronic kidney disease. 10.Hypertension with hypotension. 11.Parkinson disorder. 12.Chronic anxiety disorder. 13.Coronary artery disease. 14.Chronic diastolic congestive heart failure. 15.Chronic atrial fibrillation. SUMMARY OF HISTORY AND PHYSICAL: The patient is an 88-year-old resident of [facility] who has had blood drawn at the clinic, came back low at 6.3, and with this he was symptomatic. He was sent over to [facility] to be evaluated. The patient had been noted by ER provider that he was symptomatic, feeling weak, difficult time moving around, so he was given transfusion of 3 units of packed RBCs. However, next morning, his hemoglobin was noted to be improved up to 9.8, however, he was still quite weak and so therefore he was placed on acute care. His hemoglobin did improve up to 9.7 after transfusion. A few hours later, the patient had an episode where he became unresponsive, difficult to arouse, unclear etiology. No seizure movement was noted. He had not fallen or hurt his head. It was noted that his blood pressure did drop down to 115/55, pulse was 71, sats were 93%. The patient was given Rocephin 1 g IV because of concern with presumed bladder infection. His laboratory data that morning had showed a sodium of 138, potassium 3.9, creatinine 1.9, magnesium 1.8, AST 13, ALT 10, proBNP was 1012, albumin 2.9, lactic acid was 1.8. Troponin was less than 0.017. EKG was done which showed atrial fibrillation, rate 93. No acute concerning changes. The patient was continued on IV Rocephin. By next morning on 08/08/2019, his hemoglobin was 9.6, white blood cell count 7.5, sodium 139, potassium 4.5, creatinine was up to 2.1 from 1.9 from admission. GFR was 30. LFTs were normal. ProBNP was 523. His urine to note was growing both gram-negative rods as well as gram-positive cocci. It was concerning that the patient was still fairly weak. His blood pressure had been down to 97/35 after being sitting up. Family was very adamant about trying to get [facility] back [facility] because of cost [facility] bed. He was given 500 mL of normal saline. His blood pressure did improve to 118/48 and then up to 126/56. It was somewhat concerning how the patient still was "not" feeling back to his normal self, but family was going to get him back to the [facility], so it was felt the patient probably was at his baseline. So, arrangements were made to transfer him back to the [facility]. His amlodipine was felt need to be held because of concern of lower blood pressure that he was having. MEDICATIONS AT THE TIME OF DISCHARGE: Proscar 5 mg 1 pill at bedtime, levothyroxine 112 mcg half pill daily, omeprazole 20 mg 1 pill twice a day, Flonase 1 spray both nostrils twice a day, milk of magnesia 30 mL daily p.r.n. constipation, vitamin D3 2000 units daily, casodex 50 mg 1 pill daily, Tylenol 325 mg; he takes 3 pills 4 times a day, ferrous sulfate 325 one pill in the morning, magnesium oxide 400 mg 1 pill 3 times a day, Lexapro 10 mg 1 pill at bedtime, probiotic 1 capsule twice a day, gabapentin 300 mg twice a day, Keppra 500 mg; he takes half a pill twice a day, simvastatin 20 mg half a pill daily. His amlodipine 2.5 mg will be held until 08/11/2019. Docusate 100 mg 1 pill twice a day, Imdur 30 mg 1 pill daily, Imodium 2 mg daily as needed, amoxicillin 500 mg 1 pill twice a day for 7 days, Septra single strength 1 pill twice a day for 7 days. We will have the patient get lab work done on 08/12/2019 of a basic metabolic profile and CBC. I do expect the patient to continue to have problems with source of bleeding and recurrent weakness. His medical care for his [facility] is [facility], which records are not readily shared. He had been hospitalized there 2 weeks ago. He will be seeing urologist for catheter change. I am not certain why he is not having recurrent cystoscopies. Also, to note, because he has been on Keppra and in looking at the clinic chart, he has been on this since 08/25/2015, which was at the time when he had the right subacute/chronic subdural hematoma. He may need consideration for reimaging of his head. However, aggressive care is probably felt not to be most likely appropriate in patient due to his other comorbidities of his metastatic prostate cancer. The patient's code level status at the time of discharge is do not resuscitate/do not intubate. GM08/08/2019 18:19:55 MODL: 08/08/2019 19:42:29 /[id number]
== END 2019-08-08 15:07 | DRG 699 ==
LOC: VM.ED 11:39 → VM.MS 12:29 → OBSVTOIN 08-07 09:12
PROVIDERS: ADMIT Nurse Practitioner Family; ATTEND Family Medicine
PROC: 30233N1 Transfusion of Nonautologous Red Blood Cells into Peripheral Vein, Percutaneous Approach (ICD-10-PCS; principal; 2019-08-07)
DX: T83.518A Infection and inflammatory reaction due to other urinary catheter, initial encounter (principal); D62 Acute posthemorrhagic anemia; I13.0 Hypertensive heart and chronic kidney disease with heart failure and stage 1 through stage 4 chronic kidney disease, or unspecified chronic kidney disease; I50.32 Chronic diastolic (congestive) heart failure; R53.1 Weakness; C61 Malignant neoplasm of prostate; I48.91 Unspecified atrial fibrillation; I11.0 Hypertensive heart disease with heart failure; I50.9 Heart failure, unspecified; G31.84 Mild cognitive impairment of uncertain or unknown etiology; Z66 Do not resuscitate; G20 Parkinson's disease; E03.9 Hypothyroidism, unspecified; N30.90 Cystitis, unspecified without hematuria; R33.9 Retention of urine, unspecified; N18.9 Chronic kidney disease, unspecified; I95.9 Hypotension, unspecified; K59.00 Constipation, unspecified; I25.10 Atherosclerotic heart disease of native coronary artery without angina pectoris; F41.9 Anxiety disorder, unspecified; Y84.6 Urinary catheterization as the cause of abnormal reaction of the patient, or of later complication, without mention of misadventure at the time of the procedure; I48.2 Chronic atrial fibrillation; K59.09 Other constipation; Z79.899 Other long term (current) drug therapy; Z95.0 Presence of cardiac pacemaker; G40.909 Epilepsy, unspecified, not intractable, without status epilepticus; B96.89 Other specified bacterial agents as the cause of diseases classified elsewhere; Z88.5 Allergy status to narcotic agent; Z79.51 Long term (current) use of inhaled steroids
CPT/HCPCS: 36415; 36430; 80048; 80053; 83735; 83880; 85025 ×2; 86850; 86900; 86901; 86920; 86922; 96374; 96375; 96376; 99220; 99285; A9270 ×22; G0378 ×2; J1200; J1940 ×3; P9016 ×3; 81001; 83605; 84484; 85007; 85027; 86140; 87040; 87086; 87088; 87186; J0696; J7030

== ENCOUNTER 2019-08-23 13:11 | Emergency (ER) | payer OTHER, MEDICARE ==
--- NOTE | 2019-08-23 13:27 | EDM.PDOC ---
ED HPI GENERAL MEDICAL PROBLEM - General Chief Complaint: General Stated Complaint: weakness Time Seen by Provider: 08/23/19 13:27 Source of Information: Reports: Family - History of Present Illness INITIAL COMMENTS - FREE TEXT/NARRATIVE: Pt presents from alf with increased fatigue, pt with hx of low hemoglobin has had transfusions in the past. Onset: Today - Related Data Allergies Allergy/AdvReac Type Severity Reaction Status Date / Time lisinopril Allergy Cannot Verified 08/23/19 13:39 Remember selegiline [From Eldepryl] Allergy Cannot Verified 08/23/19 13:39 Remember YOSEF Inhibitors AdvReac Cough Verified 08/23/19 13:39 carbidopa [From Sinemet] AdvReac Hallucinati Verified 08/23/19 13:39 ons hydrocodone AdvReac Nausea and Verified 08/23/19 13:39 Vomiting levodopa [From Sinemet] AdvReac Hallucinati Verified 08/23/19 13:39 ons lorazepam [From Ativan] AdvReac Hallucinati Verified 08/23/19 13:39 ons oxycodone AdvReac Nausea and Verified 08/23/19 13:39 Vomiting pramipexole di-HCl AdvReac Hallucinati Verified 08/23/19 13:39 [From Mirapex] ons Home Meds: Home Meds Finasteride [Proscar] 5 mg PO BEDTIME 04/26/15 [History] Levothyroxine Sodium [Synthroid] 56 mcg PO DAILY 04/26/15 [History] Fluticasone Propionate [Flonase] 1 spray NASBOTH BID 08/25/15 [History] Omeprazole 20 mg PO BID@0730,1700 08/25/15 [History] Cholecalciferol (Vitamin D3) [Vitamin D3] 2,000 units PO DAILY 05/04/18 [History ] Magnesium Hydroxide [Milk of Magnesia] 30 ml PO DAILY PRN 05/04/18 [History] Acetaminophen [Tylenol] 975 mg PO QID 11/07/18 [History] Bicalutamide [Casodex] 50 mg PO DAILY 11/07/18 [History] Ferrous Sulfate 325 mg PO WITHBREAKFAST #30 tablet 11/17/18 [Rx] Magnesium Oxide 400 mg PO TID tablet 01/24/19 [Rx] Escitalopram [Lexapro] 10 mg PO BEDTIME 04/25/19 [History] L.acidoph,Paracasei, B.lactis [Probiotic] 1 cap PO BID 04/25/19 [History] Gabapentin [Neurontin] 300 mg PO BID 04/29/19 [History] Simvastatin 10 mg PO BEDTIME 04/29/19 [History] levETIRAcetam [Keppra] 250 mg PO BID 04/29/19 [History] Docusate Sodium [Colace] 100 mg PO BID 08/06/19 [History] Isosorbide Mononitrate [Imdur] 30 mg PO DAILY 08/07/19 [History] Loperamide HCl [Imodium A-D] 2 mg PO ASDIRECTED PRN MDD 8 mg in 24 hours [History] amLODIPine [Norvasc] 2.5 mg PO DAILY #30 tablet 08/08/19 [Rx] Past Medical History HEENT History: Reports: Allergic Rhinitis Cardiovascular History: Reports: Afib, CAD, Heart Failure, Hypertension, [place], Pacemaker Gastrointestinal History: Reports: Chronic Constipation Genitourinary History: Reports: Renal Disease Neurological History: Reports: Brain Injury, Parkinson's, Other (See Below) Other Neuro History: blood clot removed from head s/p fall Endocrine/Metabolic History: Reports: Hypothyroidism, Vitamin D Deficiency Hematologic History: Reports: Anemia Oncologic (Cancer) History: Reports: Prostate Other Dermatologic History: 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 - Past Surgical History Cardiovascular Surgical History: Reports: Pacer Male Surgical History: Reports: Suprapubic Catheter Placement Social & Family History - Family History Family Medical History: Noncontributory - Tobacco Use Smoking Status *Q: Former Smoker Used Tobacco, but Quit: Yes Month/Year Tobacco Last Used: 2014 - Caffeine Use Caffeine Use: Reports: Coffee ED ROS GENERAL - Review of Systems Review Of Systems: See Below Constitutional: Reports: Fatigue HEENT: Reports: No Symptoms Respiratory: Reports: No Symptoms Cardiovascular: Reports: No Symptoms Endocrine: Reports: No Symptoms GI/Abdominal: Reports: No Symptoms : Reports: No Symptoms ED EXAM, GENERAL - Physical Exam Exam: See Below Free Text/Narrative:: UA positive for leuk, hemoglobin at 6.4. Luis Miguel give Rocephin 1G x 3 days for uti 1 unit blood for low hemoglobin Exam Limited By: No Limitations General Appearance: Alert, WD/WN Ears: Normal External Exam Nose: Normal Inspection Head: Atraumatic, Normocephalic Neck: Normal Inspection Respiratory/Chest: No Respiratory Distress, Lungs Clear, Normal Breath Sounds, No Accessory Muscle Use, Chest Non-Tender Cardiovascular: Normal Peripheral Pulses, No Edema, No JVD Extremities: Normal Inspection Course - Vital Signs Last Recorded V/S: Last Vital Signs Temp 36.6 C 08/23/19 17:36 Pulse 69 08/23/19 17:36 Resp 16 08/23/19 17:36 BP 152/76 H 08/23/19 17:36 Pulse Ox 96 08/23/19 17:36 - Orders/Labs/Meds Orders: Active Orders 24 hr Category Date Time Status Verify Patient Consent Obtain [RC] ASDIRECTED Care 08/23/19 15:21 Active CULTURE URINE [RM] Stat Lab 08/23/19 13:37 Received Blood Transfusion Reflex Orders [OM.PC] Routine Oth 08/23/19 15:20 Ordered Peripheral IV Insertion Adult [OM.PC] Routine Oth 08/23/19 14:43 Ordered Transfuse Red Blood Cells [COMM] Stat Oth 08/23/19 15:20 Ordered Labs: Laboratory Tests 08/23/19 08/23/19 08/23/19 Range/Units 13:37 14:04 14:04 WBC 7.5 (4.0-10.0) x10^3/uL RBC 2.06 L (4.5-6.0) x10^6/uL Hgb 6.4 L* D (14.0-18.0) g/dL Hct 20.4 L (40.0-52.0) % MCV 99.0 H (78.0-93.0) fL MCH 31.1 (26.0-32.0) pg MCHC 31.4 L (32.0-36.0) g/dL RDW Coeff of Erna 14.4 (10.0-15.0) % Plt Count 320 (130-400) x10^3/uL Urine Color Red H (YELLOW) Urine Appearance Turbid H (CLEAR) Urine pH 5.0 (5.0-8.0) Ur Specific Tolar 1.015 Urine Protein >=300 H (NEGATIVE) mg/dL Urine Glucose (UA) Negative (NEGATIVE) mg/dL Urine Ketones Trace H (NEGATIVE) mg/dL Urine Occult Blood Large H (NEGATIVE) Urine Nitrite Negative (NEGATIVE) Urine Bilirubin Moderate H (NEGATIVE) Urine Urobilinogen 1.0 (0.2) EU/dL Ur Leukocyte Esterase Trace H (NEGATIVE) Urine RBC >100 H (NOT SEEN) /HPF Urine WBC 0-5 (NOT SEEN) /HPF Ur Squamous Epith Cells Not seen (NEGATIVE) /HPF Urine Bacteria Rare (NEGATIVE) /HPF Urine Mucus Not seen (NEGATIVE) /LPF Blood Type A POSITIVE Gel Antibody Screen Negative Crossmatch See Detail Meds: Medications Discontinued Medications Generic Name Dose Route Start Last Admin Trade Name Freq PRN Reason Stop Dose Admin Acetaminophen 650 mg 08/23/19 16:26 08/23/19 16:37 Tylenol PO 08/23/19 16:27 650 mg ONETIME ONE Administration Ceftriaxone Sodium 1 gm 08/23/19 14:45 08/23/19 15:32 Rocephin IVPUSH 08/23/19 14:46 1 gm STAT ONE Administration Sodium Chloride 10 ml 08/23/19 14:43 Saline Flush FLUSH ASDIRECTED PRN Keep Vein Open Departure - Departure Time of Disposition: 18:37 Disposition: DC/Tfer to [facility] Condition: Good Clinical Impression: Low hemoglobin UTI (urinary tract infection) Qualifiers: Urinary tract infection type: acute cystitis Hematuria presence: with hematuria Qualified Code(s): N30.01 - Acute cystitis with hematuria - Discharge Information Instructions: Blood Transfusion, Adult, [id number], Urinary Tract Infection, Adult, Yelz-uw-Aren Referrals: Samantha Bolden MD [Primary Care Provider] - Forms: ED Department Discharge - My Orders Last 24 Hours: My Active Orders 08/23/19 13:37 CULTURE URINE [RM] Stat 08/23/19 14:43 Peripheral IV Insertion Adult [OM.PC] Routine 08/23/19 15:20 Blood Transfusion Reflex Orders [OM.PC] Routine Transfuse Red Blood Cells [COMM] Stat 08/23/19 15:21 Verify Patient Consent Obtain [RC] ASDIRECTED - Assessment/Plan Last 24 Hours: My Active Orders 08/23/19 13:37 CULTURE URINE [RM] Stat 08/23/19 14:43 Peripheral IV Insertion Adult [OM.PC] Routine 08/23/19 15:20 Blood Transfusion Reflex Orders [OM.PC] Routine Transfuse Red Blood Cells [COMM] Stat 08/23/19 15:21 Verify Patient Consent Obtain [RC] ASDIRECTED
[2019-08-23] MEDS ORDERED: Sodium Chloride 0.9% 10 ML Syringe FLUSH PRN (14:43)
[2019-08-23] MEDS ORDERED: cefTRIAXone 1 GM Vial IVPUSH ONE (14:45)
[2019-08-23] MEDS ORDERED: Acetaminophen 325 MG Tab PO ONE (16:26)
[2019-08-23 16:59] VITALS: PULSE 69
[2019-08-23 17:38] VITALS: BP 152/76
== END 2019-08-23 18:37 ==
LOC: VM.ED 13:11
DX: N30.01 Acute cystitis with hematuria (principal); D64.9 Anemia, unspecified; I11.0 Hypertensive heart disease with heart failure; I50.9 Heart failure, unspecified; I25.2 Old myocardial infarction; Z87.891 Personal history of nicotine dependence; Z88.8 Allergy status to other drugs, medicaments and biological substances; Z79.899 Other long term (current) drug therapy; Z88.5 Allergy status to narcotic agent
CPT/HCPCS: 36415; 36430; 81001; 85027; 86850; 86900; 86901; 86920; 86922; 87077; 87086; 96374; 99285; A9270; J0696; P9016; 87088

== ENCOUNTER 2019-09-11 13:00 | Emergency (ER) | payer OTHER, MEDICARE ==
[2019-09-11] MEDS: Acetaminophen 325 MG Tab PO ONE (13:23)
--- NOTE | 2019-09-11 13:43 | EDM.PDOC ---
ED HPI GENERAL MEDICAL PROBLEM - General Chief Complaint: Headache Stated Complaint: SEVERE HEAD ACHE PAIN Time Seen by Provider: 09/11/19 13:05 Source of Information: Reports: Patient History Limitations: Reports: No Limitations - History of Present Illness INITIAL COMMENTS - FREE TEXT/NARRATIVE: PT was sent over by [facility] for sever headache. Upon arrival [place] has improved. Onset: Today Onset Date: 09/11/19 Duration: Hour(s): (2) - Related Data Allergies Allergy/AdvReac Type Severity Reaction Status Date / Time lisinopril Allergy Cannot Verified 09/11/19 13:32 Remember selegiline [From Eldepryl] Allergy Cannot Verified 09/11/19 13:32 Remember YOSEF Inhibitors AdvReac Cough Verified 09/11/19 13:32 carbidopa [From Sinemet] AdvReac Hallucinati Verified 09/11/19 13:32 ons hydrocodone AdvReac Nausea and Verified 09/11/19 13:32 Vomiting levodopa [From Sinemet] AdvReac Hallucinati Verified 09/11/19 13:32 ons lorazepam [From Ativan] AdvReac Hallucinati Verified 09/11/19 13:32 ons oxycodone AdvReac Nausea and Verified 09/11/19 13:32 Vomiting pramipexole di-HCl AdvReac Hallucinati Verified 09/11/19 13:32 [From Mirapex] ons Home Meds: Home Meds Finasteride [Proscar] 5 mg PO BEDTIME 04/26/15 [History] Levothyroxine Sodium [Synthroid] 56 mcg PO DAILY 04/26/15 [History] Fluticasone Propionate [Flonase] 1 spray NASBOTH BID 08/25/15 [History] Omeprazole 20 mg PO BID@0730,1700 08/25/15 [History] Cholecalciferol (Vitamin D3) [Vitamin D3] 2,000 units PO DAILY 05/04/18 [History ] Magnesium Hydroxide [Milk of Magnesia] 30 ml PO DAILY PRN 05/04/18 [History] Acetaminophen [Tylenol] 975 mg PO QID 11/07/18 [History] Bicalutamide [Casodex] 50 mg PO DAILY 11/07/18 [History] Ferrous Sulfate 325 mg PO WITHBREAKFAST #30 tablet 11/17/18 [Rx] Magnesium Oxide 400 mg PO TID tablet 01/24/19 [Rx] Escitalopram [Lexapro] 10 mg PO BEDTIME 04/25/19 [History] L.acidoph,Paracasei, B.lactis [Probiotic] 1 cap PO BID 04/25/19 [History] Gabapentin [Neurontin] 300 mg PO BID 04/29/19 [History] Simvastatin 10 mg PO BEDTIME 04/29/19 [History] levETIRAcetam [Keppra] 250 mg PO BID 04/29/19 [History] Docusate Sodium [Colace] 100 mg PO BID 08/06/19 [History] Isosorbide Mononitrate [Imdur] 30 mg PO DAILY 08/07/19 [History] Loperamide HCl [Imodium A-D] 2 mg PO ASDIRECTED PRN MDD 8 mg in 24 hours [History] amLODIPine [Norvasc] 2.5 mg PO DAILY #30 tablet 08/08/19 [Rx] Past Medical History HEENT History: Reports: Allergic Rhinitis Cardiovascular History: Reports: Afib, CAD, Heart Failure, Hypertension, [place], Pacemaker Gastrointestinal History: Reports: Chronic Constipation Genitourinary History: Reports: Renal Disease Neurological History: Reports: Brain Injury, Parkinson's, Other (See Below) Other Neuro History: blood clot removed from head s/p fall Endocrine/Metabolic History: Reports: Hypothyroidism, Vitamin D Deficiency Hematologic History: Reports: Anemia Oncologic (Cancer) History: Reports: Prostate Other Dermatologic History: 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 - Past Surgical History Cardiovascular Surgical History: Reports: Pacer Male Surgical History: Reports: Suprapubic Catheter Placement Social & Family History - Family History Family Medical History: Noncontributory - Caffeine Use Caffeine Use: Reports: Coffee ED ROS GENERAL - Review of Systems Review Of Systems: See Below Constitutional: Reports: No Symptoms HEENT: Reports: No Symptoms Respiratory: Reports: No Symptoms Cardiovascular: Reports: No Symptoms Endocrine: Reports: No Symptoms GI/Abdominal: Reports: No Symptoms Neurological: Reports: Headache - Physical Exam Exam: See Below Text/Narrative:: Pt presents upon arrival [place] is much improved at this time. [employer] Officer are weak but equil eyes perrla. Pt given dose of tylenol 975 mg PT with no complaints at this time. Exam Limited By: No Limitations General Appearance: Alert, WD/WN, No Apparent Distress Eye Exam: Bilateral Eye: Normal Inspection Nose: Normal Inspection Throat/Mouth: Normal Inspection Head Exam: Atraumatic, Normocephalic Neck: Normal Inspection Respiratory/Chest: No Respiratory Distress, Lungs Clear, Normal Breath Sounds, No Accessory Muscle Use, Chest Non-Tender Cardiovascular: Normal Peripheral Pulses, Regular Rate, Rhythm, No Edema, No Gallop, No JVD, No Murmur, No Rub Neuro Exam (Abbreviated): Alert, Oriented, CN II-XII Intact Skin Exam: Warm, Dry, Intact Course - Orders/Labs/Meds Meds: Medications Discontinued Medications Generic Name Dose Route Start Last Admin Trade Name Freq PRN Reason Stop Dose Admin Acetaminophen 975 mg 09/11/19 13:19 09/11/19 13:23 Tylenol PO 09/11/19 13:20 975 mg NOW ONE Administration Departure - Departure Time of Disposition: 13:42 Disposition: Home, Self-Care 01 Clinical Impression: Headache - Discharge Information Instructions: General Headache Without Cause, [id number]
[2019-09-11 16:58] VITALS: BP 110/52; PULSE 80
== END 2019-09-11 14:00 | disposition home or self-care (01) ==
LOC: VM.ED 13:00 → SUPCPDRO 13:00 → VM.ED 14:00
DX: R51 Headache (principal); I25.2 Old myocardial infarction; I25.10 Atherosclerotic heart disease of native coronary artery without angina pectoris; I11.0 Hypertensive heart disease with heart failure; I50.9 Heart failure, unspecified; D64.9 Anemia, unspecified; E03.9 Hypothyroidism, unspecified; Z79.890 Hormone replacement therapy; Z79.899 Other long term (current) drug therapy; Z88.5 Allergy status to narcotic agent; Z88.8 Allergy status to other drugs, medicaments and biological substances; Z95.0 Presence of cardiac pacemaker
CPT/HCPCS: 99283; A9270